=== PATIENT | female | born 1945 | race Caucasian/White ===

== ENCOUNTER → 2016-05-26 | Outpatient (CLI) | payer MEDICARE | LOC: OD 17:05 | PROVIDERS: ATTEND Internal Medicine | DX: R07.9 Chest pain, unspecified (principal) | CPT/HCPCS: 71020 ==

== ENCOUNTER → 2016-06-16 | Outpatient (CLI) | payer MEDICARE | LOC: RAD 12:41 | PROVIDERS: ATTEND Internal Medicine | DX: N23 Unspecified renal colic (principal) | CPT/HCPCS: 74176 ==

== ENCOUNTER 2017-06-29 01:40 | Inpatient (IN) | payer MEDICARE ==
[2017-06-29] MEDS ORDERED: NORMAL SALINE 1000 ML 1,000 ML IV ONE (01:52)
[2017-06-29] MEDS ORDERED: DILTIAZEM HCL INJ 25 MG/5 ML VIAL ONE (01:55)
--- NOTE | 2017-06-29 02:00 | ER Document Report ---
ED Cardiac - General Mode of Arrival: Ambulatory Information source: Patient TRAVEL OUTSIDE OF THE [place] IN LAST 30 DAYS: No <JUDY BARR - Last Filed: 06/29/17 06:15> <MARCEL BEAN - Last Filed: 06/29/17 06:21> - General Chief Complaint: Not feeling well, weak Stated Complaint: NOT FEELING WELL Time Seen by Provider: 06/29/17 01:52 Notes: Patient is a 71-year-old female that presents to the emergency department today with complaints of a heart racing sensation with associated chest pain that began prior to arrival. Patient states she has "just not felt well" for the last few days mentioning a cough. Patient has a history of GERD and she states she recently had her GERD medication adjusted. Patient denies any nausea, vomiting, fevers, or history of SVT. Patient states her hypertension medications have not been changed recently. (JUDY BARR) - Related Data Allergies/Adverse Reactions: Penicillins Allergy (Intermediate, Verified 11/30/13 13:53) alendronate sodium [From Fosamax] Allergy (Unknown, Verified 11/30/13 13:53) rosuvastatin calcium [From Crestor] Allergy (Unknown, Verified 11/30/13 13:53) Guacamole Allergy (Severe, Uncoded 11/30/13 13:53) Swelling of Throat Past Medical History - General Information source: Patient, [facility] Records - Social History Smoking Status: Never Smoker Cigarette use (# per day): No Frequency of alcohol use: None Drug Abuse: None Lives with: Family Family History: Reviewed & Not Pertinent - Past Medical History Cardiac Medical History: Reports: Hx Hypertension Psychiatric Medical History: Reports: Hx Anxiety Surgical Hx: Negative - Immunizations Hx Pneumococcal Vaccination: 05/08/10 <JUDY BARR - Last Filed: 06/29/17 06:15> Review of Systems - Review of Systems Constitutional: See HPI, Other - generally not feeling well. denies: Fever EENT: No symptoms reported Cardiovascular: See HPI, Chest pain, Heart racing Respiratory: See HPI, Cough Gastrointestinal: denies: Nausea, Vomiting Genitourinary: No symptoms reported Female Genitourinary: No symptoms reported Musculoskeletal: No symptoms reported Skin: No symptoms reported Hematologic/Lymphatic: No symptoms reported Neurological/Psychological: No symptoms reported -: Yes All other systems reviewed and negative <JUDY BARR - Last Filed: 06/29/17 06:15> Physical Exam - Vital signs Interpretation: Hypotensive, Tachycardic, Hypoxic <JUDY BARR - Last Filed: 06/29/17 06:15> <MARCEL BEAN - Last Filed: 06/29/17 06:21> - Vital signs Vitals: Temp 95 F L 06/29/17 01:43 - Notes Notes: Physical Exam: General: Severe distress, ill appearing. HEENT: Normocephalic. Atraumatic. PERRL. Extraocular movements intact. Oropharynx clear. Neck: Supple. Non-tender. Respiratory: Decreased breath sounds on the left. Cardiovascular: SVT Abdominal: Normal Inspection. Non-tender. No distension. Normal Bowel Sounds. Back: Non-tender. No deformity or step off. Extremities: Moves all four extremities. Upper extremities: Normal inspection. Normal ROM. Lower extremities: Normal inspection. No edema. Normal ROM. Neurological: Confused Psychological: Unable to assess Skin: Cool to the touch. Dry. Normal color. (JUDY BARR) Course - Laboratory Result Diagrams: 06/29/17 02:25 06/29/17 02:25 <JUDY BARR - Last Filed: 06/29/17 06:15> - Laboratory Result Diagrams: 06/29/17 02:25 06/29/17 02:25 - Diagnostic Test Radiology reviewed: Image reviewed, Reports reviewed - EKG Interpretation by Me Rate: Tachycardia <MARCEL BEAN - Last Filed: 06/29/17 06:21> - Re-evaluation Re-evalutation: 06/29/17 02:10 No response to adenosine 06/29/17 02:35 Heart rate and blood pressure responding to fluids 06/29/17 02:58 Patient improving (JUDY BARR) 06/29/17 06:11 Patient is a 8-year-old female who comes in with difficulty breathing, chest pain, hyperthermia, tachycardia, and hypotension. Patient was initially given adenosine with no response. Patient was given fluids for her tachycardia and started on Graham-Synephrine after it did not respond to 3 L of fluid. Patient has a very large infiltrate on the right with associated pleural effusion. Patient was placed on a point roberts hugger for hypo-thermia. Antibiotics were initiated. Cultures were sent. Patient was discussed with Dr. Duke who will admit the patient to the ICU. Patient has an elevated troponin likely from demand ischemia. Aspirin was ordered, but held for possible thoracocentesis later today. Have discussed with patient and family. Patient is appearing much better since initial presentation is no longer confused. Stable at time of admission. (MARCEL BEAN) - Vital Signs Vital signs: Temp Pulse Resp BP Pulse Ox 96.8 F L 18 131/95 H 82 L 06/29/17 04:52 06/29/17 04:52 06/29/17 04:52 06/29/17 03:45 - Laboratory Laboratory results interpreted by me: 06/29/17 06/29/17 06/29/17 02:20 02:25 02:25 MCV 101 H MCH 34.4 H VBG HCO3 Sodium 129.8 L Chloride 91 L Glucose 152 H Lactic Acid Magnesium AST 62 H Ammonia Total Protein 5.7 L Albumin 3.3 L TSH Free T4 Urine Ketones TRACE H Urine Urobilinogen 4.0 H Ur Leukocyte Esterase TRACE H 06/29/17 06/29/17 06/29/17 02:25 02:25 02:25 MCV MCH VBG HCO3 33.1 H Sodium Chloride Glucose Lactic Acid 2.6 H Magnesium AST Ammonia Total Protein Albumin TSH 6.97 H Free T4 3.05 H Urine Ketones Urine Urobilinogen Ur Leukocyte Esterase 06/29/17 06/29/17 04:20 04:20 MCV MCH VBG HCO3 Sodium Chloride Glucose Lactic Acid Magnesium 1.5 L AST Ammonia < 8.7 L Total Protein 4.9 L Albumin TSH Free T4 Urine Ketones Urine Urobilinogen Ur Leukocyte Esterase Critical Care Note - Critical Care Note Total time excluding time spent on procedures (mins): 120 - Evaluation and management of respiratory distress, hypothermia, tachycardia, hypotension, probable pneumonia, evaluation and coordination of admission, counseling of patient and family, multiple re-evaluations <MARCEL BEAN - Last Filed: 06/29/17 06:21> Discharge <JUDY BARR - Last Filed: 06/29/17 06:15> - Discharge Admitting Provider: Srikanth Unit Admitted: ICU <MARCEL BEAN - Last Filed: 06/29/17 06:21> - Discharge Clinical Impression: Pneumonia Qualifiers: Pneumonia type: due to unspecified organism Laterality: right Lung location: lower lobe of lung Qualified Code(s): J18.1 - Lobar pneumonia, unspecified organism Sepsis Qualifiers: Sepsis type: sepsis due to unspecified organism Qualified Code(s): A41.9 - Sepsis, unspecified organism Condition: Stable Disposition: ADMITTED INPATIENT Scribe Attestation: 06/29/17 06:21 I personally performed the services described in the documentation, reviewed and edited the documentation which was dictated to the scribe in my presence, and it accurately records my words and actions. (MARCEL BEAN) Scribe Documentation - Scribe Written by Scribe:: Delmar Green, 06/29/2017 [id number] acting as scribe for :: Freya <JUDY BARR - Last Filed: 06/29/17 06:15>
[2017-06-29] MEDS ORDERED: ADENOSINE INJ/PF 6 MG/2 ML SDV IV ONE ×2 (02:01→02:02)
--- NOTE | 2017-06-29 02:27 | RADIOLOGY REPORT (SQ) ---
EXAM DESCRIPTION: CHEST SINGLE VIEW CLINICAL HISTORY: [facility] COMPARISON: 05/26/2016 FINDINGS: Single frontal view of the chest. Atherosclerotic calcification aortic arch. Cardiomegaly. Right basilar consolidation and right pleural effusion. Left lung is clear. No pneumothorax. No displaced rib fractures. Upper abdominal soft tissues are unremarkable. IMPRESSION: 1. Left basilar consolidation and moderate left pleural effusion
[2017-06-29 02:37] LABS: VENOUS BLOOD BASE EXCESS 6.9 mmol/L; VENOUS BLOOD HCO3 33.1 mmol/L (20-32); VENOUS BLOOD PCO2 53.2 mmHg (35-63); VENOUS BLOOD PH 7.41 (7.30-7.42)
[2017-06-29] MEDS ORDERED: CEFEPIME 1 GM/D5W RTU 1 GM/50 ML RTUPB IV ONE (02:43)
[2017-06-29] MEDS ORDERED: VANCOMYCIN HCL INJ 1000 MG VIAL IV ONE (02:44)
[2017-06-29 02:48] LABS: ABSOLUTE BASOPHILS # (AUTO) 0.1 10^3/uL (0.0-0.2); ABSOLUTE EOSINOPHILS # (AUTO) 0.1 10^3/uL (0.0-0.6); ABSOLUTE LYMPHOCYTES (AUTO) 2.2 10^3/uL (0.5-4.7); ABSOLUTE MONOCYTES (AUTO) 0.6 10^3/uL (0.1-1.4); ABSOLUTE NEUT (AUTO) 6.7 10^3/uL (1.7-8.2); EOSINOPHILS % (AUTO) 1.5 % (0-6); HEMATOCRIT 43.4 % (36.0-47.0); HEMOGLOBIN 14.8 g/dL (12.0-15.5); LYMPHOCYTES % (AUTO) 22.7 % (13-45); MEAN CORPUSCULAR HEMOGLOBIN 34.4 pg (27.0-33.4); MEAN CORPUSCULAR HGB CONC 34.1 g/dL (32.0-36.0); MEAN CORPUSCULAR VOLUME 101 fl (80-97); MONOCYTES % (AUTO) 6.6 % (3-13); PLATELET COUNT 346 10^3/uL (150-450); RED CELL DISTRIBUTION WIDTH 12.8 % (11.5-14.0); SEGMENTED NEUTROPHILS % (AUTO) 68.2 % (42-78); TOTAL CELLS COUNTED % (AUTO) 100 %; WHITE BLOOD COUNT 9.8 10^3/uL (4.0-10.5)
[2017-06-29 02:55] LABS: INTERNATIONAL RATION (INR) 1.01
[2017-06-29 02:58] LABS: ALANINE AMINOTRANSFERASE 38 U/L (9-52); ALBUMIN 3.3 g/dL (3.5-5.0); ALKALINE PHOSPHATASE 67 U/L (38-126); ANION GAP 12 (5-19); ASPARTATE AMINO TRANSFERASE 62 U/L (14-36); BILIRUBIN,DIRECT 0.4 mg/dL (0.0-0.4); BILIRUBIN,TOTAL 0.7 mg/dL (0.2-1.3); BLOOD UREA NITROGEN 13 mg/dL (7-20); CALCIUM 8.9 mg/dL (8.4-10.2); CARBON DIOXIDE 27 mmol/L (22-30); CHLORIDE 91 mmol/L (98-107); GLUCOSE 152 mg/dL (75-110); POTASSIUM 4.1 mmol/L (3.6-5.0); SODIUM 129.8 mmol/L (137-145); TOTAL PROTEIN 5.7 g/dL (6.3-8.2)
[2017-06-29] MEDS ORDERED: FENTANYL CITRATE INJ/PF 100 MCG/2 ML AMPUL IV ONE (03:08)
[2017-06-29 03:15] LABS: APPEARANCE,URINE SLIGHTLY-CLOUDY; BILIRUBIN,URINE NEGATIVE (NEGATIVE); COLOR,URINE YELLOW; GLUCOSE, URINE NEGATIVE (NEGATIVE); KETONES,URINE TRACE mg/dL (NEGATIVE); LEUKOCYTE ESTERASE,URINE TRACE (NEGATIVE); NITRITE,URINE NEGATIVE (NEGATIVE); PROTEIN,URINE NEGATIVE (NEGATIVE); URINE SPECIFIC GRAVITY 1.014
[2017-06-29] MEDS ORDERED: LEVOFLOXACIN 750 MG/D5W RTU 750 MG/150 ML RTUPB IV ONE ×2 (03:15→06:00)
[2017-06-29] MEDS: NORMAL SALINE 1000 ML 1,000 ML IV PRN ×3 (03:38→22:32)
[2017-06-29] MEDS ORDERED: NORMAL SALINE 1000 ML 1,000 ML IV PRN (04:04)
[2017-06-29] MEDS ORDERED: VANCOMYCIN HCL 0 MG in DEXTROSE 5%-WATER 250 ML IV NR (04:15)
[2017-06-29] MEDS ORDERED: DEXTROSE 5%-WATER 250 ML with PHENYLEPHRINE HCL 40 MG IV PRN ×2 (04:16)
[2017-06-29] MEDS ORDERED: PHENYLEPHRINE HCL INJ/PF 10 MG/1 ML SDV ONE (04:22)
[2017-06-29 04:39] LABS: THYROID STIMULATING HORMONE 6.97 uIU/mL (0.47-4.68)
[2017-06-29 04:42] LABS: FREE T4 (FREE THYROXINE) 3.05 ng/dL (0.78-2.19)
[2017-06-29 04:43] LABS: INTERNATIONAL RATION (INR) 1.08; PROTHROMBIN TIME 14.7 SEC (11.4-15.4)
[2017-06-29 04:50] LABS: LIPASE 101.2 U/L (23-300); PHOSPHORUS 3.9 mg/dL (2.5-4.5); TOTAL PROTEIN 4.9 g/dL (6.3-8.2)
[2017-06-29 05:01] LABS: PARTIAL THROMBOPLASTIN TIME 28.1 SEC (23.5-35.8)
[2017-06-29 05:03] LABS: CREATINE KINASE MB 4.46 ng/mL (<4.55)
[2017-06-29 05:07] LABS: TROPONIN I 0.574 ng/mL
[2017-06-29] MEDS ORDERED: ASPIRIN 81 MG TABLET, CHEWABLE PO ONE (05:52)
[2017-06-29] MEDS: ENOXAPARIN SODIUM INJ 40 MG/0.4 ML DISP.SYRIN SUBCUT SCH (06:25)
[2017-06-29] MEDS ORDERED: VALSARTAN PO SCH (08:00)
[2017-06-29] MEDS ORDERED: HYDROCHLOROTHIAZIDE PO SCH (08:00)
[2017-06-29] MEDS ORDERED: PROPRANOLOL HCL 160 MG PO SCH (08:00)
[2017-06-29] MEDS ORDERED: [UNRECOGNIZED DRUG - OTHER] PO SCH (08:00)
--- NOTE | 2017-06-29 08:06 | EKG REPORT ---
SEVERITY:- ABNORMAL ECG - ATRIAL FIBRILLATION, V-RATE 104-161 LOW VOLTAGE IN FRONTAL LEADS PROBABLE LEFT VENTRICULAR HYPERTROPHY ST DEPRESSION, PROBABLY RATE RELATED PROLONGED QT INTERVAL : Confirmed by: Devonte Hargrove MD 29-Jun-2017 08:05:47
--- NOTE | 2017-06-29 08:06 | EKG REPORT ---
SEVERITY:- ABNORMAL ECG - SINUS RHYTHM NONSPECIFIC INTRAVENTRICULAR CONDUCTION DELAY LOW VOLTAGE IN FRONTAL LEADS BORDERLINE ST DEPRESSION,AKILA LATERAL LEADS : Confirmed by: Devonte Hargrove MD 29-Jun-2017 08:05:26
--- NOTE | 2017-06-29 08:07 | EKG REPORT ---
SEVERITY:- ABNORMAL ECG - SUPRAVENTRICULAR TACHYCARDIA LOW VOLTAGE IN FRONTAL LEADS PROBABLE LEFT VENTRICULAR HYPERTROPHY ST DEPRESSION, PROBABLY RATE RELATED : Confirmed by: Devonte Hargrove MD 29-Jun-2017 08:07:14
[2017-06-29 09:01] LABS: URINE AMPHETAMINES SCREEN NEGATIVE; URINE BARBITURATES SCREEN NEGATIVE; URINE BENZODIAZEPINES SCREEN NEGATIVE; URINE COCAINE SCREEN NEGATIVE; URINE MARIJUANA (THC) SCREEN NEGATIVE; URINE METHADONE SCREEN NEGATIVE; URINE PHENCYCLIDINE SCREEN NEGATIVE
[2017-06-29] MEDS ORDERED: ALPRAZOLAM 0.5 MG TABLET PO ONE (09:30)
[2017-06-29] MEDS ORDERED: LIDOCAINE 1% INJ-PF (10 MG/ML) 30 ML SDV ONE (09:35)
[2017-06-29] MEDS: AZTREONAM 1.5 GM in DEXTROSE 5%-WATER 100 ML IV SCH ×2 (11:07→18:36)
[2017-06-29] MEDS: HYDROCHLOROTHIAZIDE 12.5 MG CAPSULE PO SCH (11:13)
[2017-06-29] MEDS: VALSARTAN 160 MG TABLET PO SCH (11:13)
[2017-06-29] MEDS: PROPRANOLOL HCL 40 MG TABLET PO SCH ×2 (11:13→21:57)
--- NOTE | 2017-06-29 11:51 | RADIOLOGY REPORT (SQ) ---
EXAM DESCRIPTION: U/S THORACENTESIS WITH IMAGING COMPLETED DATE/TIME: 06/29/2017 11:14 am REASON FOR STUDY: rt pleural effusion COMPARISON: AP chest 06/29/2017, 05/26/2016 Right rib detail films 05/26/2016 LIMITATIONS: None. PROCEDURE: Procedure, risks, benefit, and alternative explained to patient who then gave written con sent. The posterior right chest wall was marked using ultrasound guidance. A time-out was called fo r correct marking verification. Chest prepped and draped using sterile technique. Local anesthesia a chieved using 3.5 ml of 1% lidocaine injection. A 6fr Safe-T- Centesis set was introduced into the r ight pleural space. Fluid was aspirated. The catheter was removed and the entry site was covered wi th sterile bandage. No immediate complications noted. Fluid was sent for testing including cytology. Images acquired during the procedure were stored on PACS. FINDINGS: ENTRY SITE: Posterior right chest FLUID VOLUME: 1600 mL FLUID ANALYSIS: Sent for testing as per ordering physician OTHER: Fluid was opaque milky colored IMPRESSION: SUCCESSFUL DIAGNOSTIC AND THERAPEUTIC THORACENTESIS USING ULTRASOUND GUIDANCE. COMMENT: Patient medication list reviewed: Yes- Quality ID# [id number]:Eligible professional attests to doc umenting in the medical record they obtained, updated, or reviewed the patient's current medications. Quality ID #[id number]: Final reports for procedures using fluoroscopy that document radiation exposure josie jose luis, or exposure time and number of fluorographic images (if radiation exposure indices are not avail able) TECHNICAL DOCUMENTATION: JOB ID: [id number] [employer]- All Rights Reserved
[2017-06-29 11:59] LABS: FLUID APPEARANCE TURBID; FLUID COLOR STRAW; FLUID SOURCE LUNG; FLUID TYPE PLEURAL; FLUID VISCOSITY LIQUID
--- NOTE | 2017-06-29 12:15 | RADIOLOGY REPORT (SQ) ---
EXAM DESCRIPTION: CHEST SINGLE VIEW COMPLETED DATE/TIME: 06/29/2017 11:58 am REASON FOR STUDY: Post Rigth Thoracentesis (repeat in 2 HRs) COMPARISON: 06/29/2017 EXAM PARAMETERS: NUMBER OF VIEWS: One view. TECHNIQUE: Single frontal radiographic view of the chest acquired. RADIATION DOSE: NA LIMITATIONS: None. FINDINGS: LUNGS AND PLEURA: Post thoracentesis, no pneumothorax. . . Possible developing minimal atelectasis or infiltrate the left base adjacent to the hemidiaphragm. MEDIASTINUM AND HILAR STRUCTURES: No masses. Contour normal. HEART AND VASCULAR STRUCTURES: Heart normal in size. Normal vasculature. BONES: No acute findings. HARDWARE: None in the chest. OTHER: No other significant finding. IMPRESSION: No pneumothorax post thoracentesis. Possible developing minimal atelectasis or infiltra te left base. TECHNICAL DOCUMENTATION: JOB ID: [id number] [employer]- All Rights Reserved
--- NOTE | 2017-06-29 13:52 | RADIOLOGY REPORT (SQ) ---
EXAM DESCRIPTION: CHEST SINGLE VIEW COMPLETED DATE/TIME: 06/29/2017 1:38 pm REASON FOR STUDY: 2 HR POST THORACENTESIS COMPARISON: 06/29/2017 chest films 0150 hours and 1145 hours EXAM PARAMETERS: NUMBER OF VIEWS: One view. TECHNIQUE: Single frontal radiographic view of the chest acquired. RADIATION DOSE: NA LIMITATIONS: None. FINDINGS: LUNGS AND PLEURA: 2 hours post right-sided thoracentesis. No pneumothorax. The there is still a moderate to large residual right pleural effusion, thoracentesis earlier today r emoved 1600 mL of cloudy white fluid from the right hemithorax. Persistent airspace disease in the right middle and lower lobe likely atelectasis. Minimal left basilar atelectasis in the lateral costophrenic sulcus. No gross left pleural effusion or pneumothorax. MEDIASTINUM AND HILAR STRUCTURES: No masses. Contour normal. HEART AND VASCULAR STRUCTURES: Heart normal in size. Normal vasculature. BONES: No acute findings. HARDWARE: Defibrillator pads over the chest OTHER: No other significant finding. IMPRESSION: No pneumothorax 2 hours post right-sided thoracentesis. TECHNICAL DOCUMENTATION: JOB ID: [id number] [employer]- All Rights Reserved
[2017-06-29 15:42] LABS: CREATINE KINASE MB 11.8 ng/mL (<4.55)
[2017-06-29 15:45] LABS: TROPONIN I 3.06 ng/mL
[2017-06-29] MEDS ORDERED: VANCOMYCIN HCL 500 MG in DEXTROSE 5%-WATER 100 ML IV SCH (16:00)
[2017-06-29] MEDS: VANCOMYCIN HCL 500 MG in NORMAL SALINE 100 ML IV SCH (17:06)
[2017-06-29] MEDS ORDERED: ACETAMINOPHEN 325 MG TABLET ONE (19:31)
--- NOTE | 2017-06-29 19:54 | EKG REPORT ---
SEVERITY:- ABNORMAL ECG - SINUS RHYTHM REPOL ABNRM SUGGESTS ISCHEMIA, LATERAL LEADS : Confirmed by: Devonte Hargrove MD 29-Jun-2017 19:52:58
[2017-06-29] MEDS ORDERED: ACETAMINOPHEN 325 MG TABLET PO PRN (20:10)
--- NOTE | 2017-06-29 20:33 | PDOC H&P ---
History of Present Illness Admission Date/PCP: 06/29/17 04:26 NOLAN KIRKPATRICK MD History of Present Illness: MARSHA DUMAS is a 71 year old female, She came to the emergency room this morning for evaluation of malaise, palpitation, cough. In the emergency room she was evaluated she was found to have hypothermia with a core temperature of 95, low blood pressure, no complex tachycardia, she was treated with adenosine she also was treated with Graham-Synephrine after she was given fluid challenge with normal saline. Her chest x-ray showed a large right pleural effusion associated with infiltrates. She also had elevated lactic acid level hyponatremia. This morning she had thoracentesis over 1600 cc of pleural fluid was collected, analysis is pending, the LDH and total protein level is pending to determine if this is exudative versus transudative but based on the appearance of the pleural fluid is very suspicious for exudative pleural effusion. She also have elevated serum troponin most likely due to demand ischemia secondary to tachycardia and sepsis. Patient admits criteria for sepsis due to severe pneumonia.I spoke to patient about the duration of her sickness, she told me that she has been feeling unwell for the last couple of days, she has a scheduled appointment on Monday with us in the office but she could not wait for the appointment because she felt very well earlier this morning and she came to the emergency room for evaluation. Past Medical History Cardiac Medical History: Reports: Hypertension GI Medical History: Reports: Gastroesophageal Reflux Disease Psychiatric Medical History: Reports: Depression Social History Lives with: Family Smoking Status: Never Smoker Frequency of Alcohol Use: None Hx Recreational Drug Use: No Drugs: None Hx Prescription Drug Abuse: No - Advance Directive Resuscitation Status: Full Code Family History Family History: Reviewed & Not Pertinent Parental Family History Reviewed: Yes Children Family History Reviewed: Yes Sibling(s) Family History Reviewed.: Yes Medication/Allergy Home Medications: Bupropion HCl [Wellbutrin Xl 300mg 24hr Tablet] 1 tab PO DAILY 06/29/17 Propranolol HCl [Inderal La] 160 mg PO DAILY 06/29/17 Valsartan/Hydrochlorothiazide [Valsartan-Hctz 320-25 mg Tab] 0.5 each PO DAILY 06/29/17 Allergies/Adverse Reactions: Penicillins Allergy (Intermediate, Verified 11/30/13 13:53) alendronate sodium [From Fosamax] Allergy (Unknown, Verified 11/30/13 13:53) rosuvastatin calcium [From Crestor] Allergy (Unknown, Verified 11/30/13 13:53) Guacamole Allergy (Severe, Uncoded 11/30/13 13:53) Swelling of Throat Review of Systems Constitutional: PRESENT: chills, fatigue, headache(s) Eyes: ABSENT: visual disturbances Ears: ABSENT: hearing changes Cardiovascular: PRESENT: palpitations Respiratory: PRESENT: cough Gastrointestinal: ABSENT: abdominal pain, constipation, diarrhea, hematemesis, hematochezia, nausea, vomiting Genitourinary: ABSENT: dysuria, hematuria Musculoskeletal: ABSENT: joint swelling Integumentary: ABSENT: rash, wounds Neurological: ABSENT: abnormal gait, abnormal speech, confusion, dizziness, focal weakness, syncope Psychiatric: ABSENT: anxiety, depression, homidical ideation, suicidal ideation Endocrine: PRESENT: cold intolerance Hematologic/Lymphatic: ABSENT: easy bleeding, easy bruising, lymphadenopathy Physical Exam Vital Signs: Temp Pulse Resp BP Pulse Ox 97.4 F 78 18 154/95 H 98 06/29/17 16:07 06/29/17 20:01 06/29/17 16:07 06/29/17 16:07 06/29/17 16:07 Intake & Output 06/28/17 06/29/17 06/30/17 06:59 06:59 06:59 Intake Total 576 Output Total 1000 Balance -424 Weight 56.699 kg 62.5 kg General appearance: PRESENT: mild distress Head exam: PRESENT: atraumatic, normocephalic Eye exam: PRESENT: conjunctiva pink, EOMI, PERRLA Ear exam: PRESENT: normal external ear exam Mouth exam: PRESENT: moist, tongue midline Neck exam: PRESENT: full ROM Respiratory exam: PRESENT: decreased breath sounds - On auscultation of the chest, there is decreased breath sounds on the right lung earl Cardiovascular exam: PRESENT: RRR, +S1, +S2 Vascular exam: PRESENT: normal capillary refill GI/Abdominal exam: PRESENT: normal bowel sounds, soft Rectal exam: PRESENT: deferred Neurological exam: PRESENT: alert, awake, oriented to person, oriented to place , oriented to time, oriented to situation, CN II-XII grossly intact Psychiatric exam: PRESENT: appropriate affect, normal mood Skin exam: PRESENT: dry, intact, warm Results Laboratory Results: 06/29/17 06/29/17 06:35 10:35 Lactic Acid 1.6 Fluid Type PLEURAL Fluid Source LUNG Fluid Color STRAW Fluid Appearance TURBID Fluid Viscosity LIQUID Fluid WBC 5125 Fluid RBC 611 06/29/17 06/29/17 06/29/17 13:36 13:36 15:00 Creatine Kinase 154 H 127 CK-MB (CK-2) Cancelled Troponin I Cancelled 06/29/17 15:00 Creatine Kinase CK-MB (CK-2) 11.80 H Troponin I 3.060 Impressions: Thoracentesis Ultrasound 06/29/17 04:03 IMPRESSION: SUCCESSFUL DIAGNOSTIC AND THERAPEUTIC THORACENTESIS USING ULTRASOUND GUIDANCE. Chest X-Ray 06/29/17 14:00 IMPRESSION: No pneumothorax 2 hours post right-sided thoracentesis. Assessment & Plan - Diagnosis (1) Sepsis Qualifiers: Sepsis type: sepsis due to unspecified organism Qualified Code(s): A41.9 - Sepsis, unspecified organism Is this a current diagnosis for this admission?: Yes Plan: She has sepsis syndrome, due to right lower lobe pneumonia, the pleural effusion is most likely parapneumonic effusion (2) Pneumonia Qualifiers: Pneumonia type: due to unspecified organism Laterality: right Lung location: unspecified part of lung Qualified Code(s): J18.9 - Pneumonia, unspecified organism Is this a current diagnosis for this admission?: Yes Plan: She has right lower lobe pneumonia, She will empirically be treated with antibiotic to cover MRSA, community-acquired pathogens (3) Pleural effusion on right Is this a current diagnosis for this admission?: Yes (4) Elevated troponin Is this a current diagnosis for this admission?: Yes Plan: This is probably related to the sepsis, demand ischemia (5) Paroxysmal A-fib Is this a current diagnosis for this admission?: Yes (6) Hyponatremia Is this a current diagnosis for this admission?: Yes (7) Hypomagnesemia Is this a current diagnosis for this admission?: Yes (8) Hypotension Qualifiers: Hypotension type: unspecified hypotension type Qualified Code(s): I95.9 - Hypotension, unspecified Is this a current diagnosis for this admission?: Yes
[2017-06-29] MEDS: BUPROPION HCL 100 MG TABLET PO SCH (21:59)
[2017-06-29] MEDS ORDERED: BUPROPION HCL 100 MG TABLET PO SCH (22:00)
[2017-06-29] MEDS: LEVOFLOXACIN 750 MG/D5W RTU 750 MG/150 ML RTUPB IV SCH (22:03)
[2017-06-29] MEDS: MAGNESIUM SULFATE/D5W 1 GM/100 ML RTUPB IV SCH ×2 (22:03→22:05)
[2017-06-30] MEDS: AZTREONAM 1.5 GM in DEXTROSE 5%-WATER 100 ML IV SCH ×3 (01:14→17:16)
[2017-06-30] MEDS: VANCOMYCIN HCL 500 MG in NORMAL SALINE 100 ML IV SCH ×2 (03:08→15:33)
[2017-06-30 04:33] LABS: ABSOLUTE LYMPHOCYTES (AUTO) 1.6 10^3/uL (0.5-4.7); ABSOLUTE MONOCYTES (AUTO) 0.8 10^3/uL (0.1-1.4); ABSOLUTE NEUT (AUTO) 5.7 10^3/uL (1.7-8.2); BASOPHILS % (AUTO) 0.2 % (0-2); EOSINOPHILS % (AUTO) 0.5 % (0-6); HEMATOCRIT 43.7 % (36.0-47.0); HEMOGLOBIN 14.9 g/dL (12.0-15.5); LYMPHOCYTES % (AUTO) 19.5 % (13-45); MEAN CORPUSCULAR HEMOGLOBIN 34.2 pg (27.0-33.4); MEAN CORPUSCULAR HGB CONC 34.2 g/dL (32.0-36.0); MEAN CORPUSCULAR VOLUME 100 fl (80-97); MONOCYTES % (AUTO) 9.3 % (3-13); PLATELET COUNT 277 10^3/uL (150-450); RED BLOOD COUNT 4.37 10^6/uL (3.72-5.28); RED CELL DISTRIBUTION WIDTH 12.4 % (11.5-14.0); SEGMENTED NEUTROPHILS % (AUTO) 70.5 % (42-78); TOTAL CELLS COUNTED % (AUTO) 100 %; WHITE BLOOD COUNT 8.1 10^3/uL (4.0-10.5)
[2017-06-30 04:53] LABS: ALANINE AMINOTRANSFERASE 58 U/L (9-52); ALBUMIN 3.2 g/dL (3.5-5.0); ALKALINE PHOSPHATASE 103 U/L (38-126); ANION GAP 8 (5-19); ASPARTATE AMINO TRANSFERASE 115 U/L (14-36); BILIRUBIN,DIRECT 0.4 mg/dL (0.0-0.4); BILIRUBIN,TOTAL 0.5 mg/dL (0.2-1.3); BLOOD UREA NITROGEN 9 mg/dL (7-20); CARBON DIOXIDE 25 mmol/L (22-30); CHLORIDE 97 mmol/L (98-107); CHOLESTEROL 140.42 mg/dL (0-200); GLUCOSE 118 mg/dL (75-110); POTASSIUM 3.5 mmol/L (3.6-5.0); SODIUM 129.5 mmol/L (137-145); TOTAL PROTEIN 5.9 g/dL (6.3-8.2); TRIGLYCERIDES 84 mg/dL (<150)
[2017-06-30 05:04] LABS: DIRECT LDL 73 mg/dL (<100)
[2017-06-30] MEDS: PROPRANOLOL HCL 40 MG TABLET PO SCH ×2 (09:25→21:24)
[2017-06-30] MEDS: BUPROPION HCL 100 MG TABLET PO SCH ×2 (09:26→21:25)
[2017-06-30] MEDS: VALSARTAN 160 MG TABLET PO SCH (09:26)
[2017-06-30] MEDS: HYDROCHLOROTHIAZIDE 12.5 MG CAPSULE PO SCH (09:26)
[2017-06-30] MEDS: ENOXAPARIN SODIUM INJ 40 MG/0.4 ML DISP.SYRIN SUBCUT SCH (11:24)
--- NOTE | 2017-06-30 18:22 | XCELERA REPORT ---
[address] [address] Transthoracic Echocardiogram Report Name: MARSHA DUMAS Age: 71 yrs Gender: Female : 1945 Patient Status: Inpatient Patient Location: [address] [place] [address] Study Date: 06/30/2017 11:25 AM Height: 68 in Weight: 137 lb BSA: 1.7 m2 Procedure: A complete two-dimensional transthoracic echocardiogram was performed (2D, M-mode, spectral and color flow Doppler). The study was technically difficult with many images being suboptimal in quality. Reason For Study: elevated troponin Ordering Physician: NOLAN KIRKPATRICK Performed By: Juliana Jaime Interpretation Summary The left ventricular ejection fraction is normal. There is mild concentric left ventricular hypertrophy. The left ventricle is grossly normal size. Doppler measurements suggest pseudonormalized left ventricular relaxation, which is associated with grade II/IV or mild to moderate diastolic dysfunction Wall motion cannot be accurately commented on, but no definite regional wall motion abnormalities noted. The right ventricular systolic function is normal. The right atrium is normal in size The left atrium is mildly dilated. There is a moderate amount of mitral regurgitation There is no mitral valve stenosis. No aortic regurgitation is present. There is no aortic valve stenosis There is a trace to mild amount of tricuspid regurgitation There is mild pulmonary hypertension by echo Right ventricular systolic pressure is estimated to be elevated at 30- 40mmHg. The aortic root is not well visualized but is probably normal size. The inferior vena cava appeared normal and decreased < 50% with respiration (RAP 10-15 mmHg) Minimal pericardial effusion. Small right pleural effusion. MMode/2D Measurements & Calculations RVDd: 2.5 cm LVIDd: 4.7 cm FS: 38.8 % Ao root diam: 3.2 cm IVSd: 0.80 cm LVIDs: 2.9 cm EDV(Teich): LVPWd: 0.80 cm 104.6 ml Ao root area: 8.0 cm2 ESV(Teich): LA dimension: 3.7 cm 32.3 ml EF(Teich): 69.2 % LA A2Cs: LA A4Cs: LA length: 4.0 cmLA Vol Index (BP): 20.3 cm2 17.2 cm2 42.5 ml/m2 LA Volume: 74.0 ml Doppler Measurements & Calculations MV E max temo: MV P1/2t max temo: Ao V2 max: LV V1 max P.8 cm/sec 38.3 cm/sec 74.8 cm/sec 0.81 mmHg MV A max temo: MV P1/2t: 95.5 msec Ao max PG: LV V1 max: 43.2 cm/sec 2.2 mmHg 45.0 cm/sec MV E/A: 0.85 MVA(P1/2t): 2.3 cm2 MV dec slope: 117.3 cm/sec2 MV dec time: 0.32 sec TV V2 max: PA V2 max: TR max temo: 298.4 cm/sec 55.9 cm/sec 270.1 cm/sec TV max PG: PA max P.2 mmHg TR max P.8 mmHg 29.2 mmHg Left Ventricle The left ventricle is grossly normal size. There is mild concentric left ventricular hypertrophy. The left ventricular ejection fraction is normal. Doppler measurements suggest pseudonormalized left ventricular relaxation, which is associated with grade II/IV or mild to moderate diastolic dysfunction. Wall motion cannot be accurately commented on, but no definite regional wall motion abnormalities noted. Right Ventricle The right ventricle is grossly normal size. There is normal right ventricular wall thickness. The right ventricular systolic function is normal. Atria The right atrium is normal in size. The left atrium is mildly dilated. Interarterial septum not well visualized and not well dopplered. Cannot comment on ASD/PFO presence. Mitral Valve There is mild to moderate mitral leaflet calcification. There is no mitral valve stenosis. There is a moderate amount of mitral regurgitation. Aortic Valve The aortic valve is grossly normal. There is no aortic valve stenosis. No aortic regurgitation is present. Tricuspid Valve The tricuspid valve is not well visualized, but is grossly normal. There is no tricuspid stenosis. There is a trace to mild amount of tricuspid regurgitation. There is mild pulmonary hypertension by echo. Right ventricular systolic pressure is estimated to be elevated at 30-40mmHg. Pulmonic Valve The pulmonic valve is not well visualized. Great Vessels The aortic root is not well visualized but is probably normal size. The inferior vena cava appeared normal and decreased < 50% with respiration (RAP 10-15 mmHg). Effusions Minimal pericardial effusion. Small right pleural effusion. : NOLAN KIRKPATRICK > Geraldine King
[2017-06-30] MEDS: HYDRALAZINE HCL INJ/PF 20 MG/1 ML SDV IV PRN (20:38)
[2017-06-30] MEDS: ZOLPIDEM TARTRATE 5 MG TABLET PO SCH (21:24)
[2017-06-30] MEDS: LEVOFLOXACIN 750 MG/D5W RTU 750 MG/150 ML RTUPB IV SCH (21:25)
--- NOTE | 2017-06-30 22:14 | PDOC PROGRESS REPORT ---
Subjective Progress Note for:: 06/30/17 Subjective:: Patient is seen by the bedside the pleural fluid analysis is consistent with exudative pleural effusion suggesting infection or malignancy. She is confused, blood pressure is elevated, she normally uses alprazolam, she is probably withdrawing from benzodiazepine, she be started on alprazolam on a scheduled Reason For Visit: PNEUMONIA,SEPSIS Physical Exam Vital Signs: Temp Pulse Resp BP Pulse Ox 97.5 F 72 17 195/112 H 93 06/30/17 19:36 06/30/17 19:36 06/30/17 19:36 06/30/17 19:36 06/30/17 19:36 Intake & Output 06/29/17 06/30/17 07/01/17 06:59 06:59 06:59 Intake Total 1864 1508 Output Total 2700 3200 Balance -836 -1692 Weight 56.699 kg 62.5 kg General appearance: PRESENT: no acute distress Eye exam: PRESENT: PERRLA Respiratory exam: PRESENT: clear to auscultation carlos Cardiovascular exam: PRESENT: +S1, +S2 GI/Abdominal exam: PRESENT: soft Neurological exam: PRESENT: alert Results Laboratory Results: 06/30/17 04:08 06/30/17 04:08 06/29/17 06/29/17 06/29/17 10:35 10:35 10:35 WBC RBC Hgb Hct MCV MCH MCHC RDW Plt Count Seg Neutrophils % Lymphocytes % Monocytes % Eosinophils % Basophils % Absolute Neutrophils Absolute Lymphocytes Absolute Monocytes Absolute Eosinophils Absolute Basophils Sodium Potassium Chloride Carbon Dioxide Anion Gap BUN Creatinine Est GFR ( Amer) Est GFR (Non-Af Amer) Glucose Calcium Total Bilirubin AST ALT Alkaline Phosphatase Total Protein Albumin Triglycerides Cholesterol LDL Cholesterol Direct VLDL Cholesterol HDL Cholesterol Fluid Glucose 119 Fluid Total Protein Fluid LDH 99 Fluid Amylase 63 06/29/17 06/30/17 06/30/17 10:35 04:08 04:08 WBC 8.1 RBC 4.37 Hgb 14.9 Hct 43.7 MCV 100 H MCH 34.2 H MCHC 34.2 RDW 12.4 Plt Count 277 Seg Neutrophils % 70.5 Lymphocytes % 19.5 Monocytes % 9.3 Eosinophils % 0.5 Basophils % 0.2 Absolute Neutrophils 5.7 Absolute Lymphocytes 1.6 Absolute Monocytes 0.8 Absolute Eosinophils 0.0 Absolute Basophils 0.0 Sodium 129.5 L Potassium 3.5 L Chloride 97 L Carbon Dioxide 25 Anion Gap 8 BUN 9 Creatinine 0.54 Est GFR ( Amer) > 60 Est GFR (Non-Af Amer) > 60 Glucose 118 H Calcium 8.0 L Total Bilirubin 0.5 AST 115 H ALT 58 H Alkaline Phosphatase 103 Total Protein 5.9 L Albumin 3.2 L Triglycerides 84 Cholesterol 140.42 LDL Cholesterol Direct 73 VLDL Cholesterol 17.0 HDL Cholesterol 42 Fluid Glucose Fluid Total Protein 3.6 Fluid LDH Fluid Amylase 06/29/17 10:35 Pleural Fluid - Right Pleural Effusion AFB Smear Concentration - Final 06/29/17 10:35 Pleural Fluid - Right Pleural Effusion Acid Fast Bacilli Smear - Final 06/29/17 06/29/17 06/29/17 13:36 13:36 15:00 Creatine Kinase 154 H 127 CK-MB (CK-2) Cancelled Troponin I Cancelled 06/29/17 15:00 Creatine Kinase CK-MB (CK-2) 11.80 H Troponin I 3.060 Impressions: Thoracentesis Ultrasound 06/29/17 04:03 IMPRESSION: SUCCESSFUL DIAGNOSTIC AND THERAPEUTIC THORACENTESIS USING ULTRASOUND GUIDANCE. Chest X-Ray 06/29/17 14:00 IMPRESSION: No pneumothorax 2 hours post right-sided thoracentesis. Assessment & Plan - Diagnosis (1) Sepsis Qualifiers: Sepsis type: sepsis due to unspecified organism Qualified Code(s): A41.9 - Sepsis, unspecified organism Is this a current diagnosis for this admission?: Yes (2) Pneumonia Qualifiers: Pneumonia type: due to unspecified organism Laterality: right Lung location: unspecified part of lung Qualified Code(s): J18.9 - Pneumonia, unspecified organism Is this a current diagnosis for this admission?: Yes (3) Pleural effusion on right Is this a current diagnosis for this admission?: Yes (4) Elevated troponin Is this a current diagnosis for this admission?: Yes Plan: The 2D echo was normal, elevated troponin is most likely related to sepsis (5) Paroxysmal A-fib Is this a current diagnosis for this admission?: Yes (6) Hyponatremia Is this a current diagnosis for this admission?: Yes (7) Hypomagnesemia Is this a current diagnosis for this admission?: Yes (8) Hypotension Qualifiers: Hypotension type: unspecified hypotension type Qualified Code(s): I95.9 - Hypotension, unspecified Is this a current diagnosis for this admission?: Yes (9) Exudative pleural effusion Is this a current diagnosis for this admission?: Yes (10) Benzodiazepine withdrawal Qualifiers: Complication of substance-induced condition: with delirium Qualified Code(s ): 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
[2017-07-01] MEDS: AZTREONAM 1.5 GM in DEXTROSE 5%-WATER 100 ML IV SCH ×3 (01:04→17:05)
[2017-07-01] MEDS: VANCOMYCIN HCL 500 MG in NORMAL SALINE 100 ML IV SCH ×2 (03:24→15:20)
[2017-07-01] MEDS: NORMAL SALINE 1000 ML 1,000 ML IV PRN (05:21)
[2017-07-01 05:37] LABS: ABSOLUTE BASOPHILS # (AUTO) 0.1 10^3/uL (0.0-0.2); ABSOLUTE LYMPHOCYTES (AUTO) 1.7 10^3/uL (0.5-4.7); ABSOLUTE MONOCYTES (AUTO) 0.8 10^3/uL (0.1-1.4); ABSOLUTE NEUT (AUTO) 6.5 10^3/uL (1.7-8.2); BASOPHILS % (AUTO) 0.7 % (0-2); EOSINOPHILS % (AUTO) 0.3 % (0-6); HEMATOCRIT 43.2 % (36.0-47.0); HEMOGLOBIN 15.1 g/dL (12.0-15.5); LYMPHOCYTES % (AUTO) 18.7 % (13-45); MEAN CORPUSCULAR HEMOGLOBIN 34.3 pg (27.0-33.4); MEAN CORPUSCULAR VOLUME 98 fl (80-97); MONOCYTES % (AUTO) 9.1 % (3-13); PLATELET COUNT 277 10^3/uL (150-450); RED BLOOD COUNT 4.41 10^6/uL (3.72-5.28); RED CELL DISTRIBUTION WIDTH 12.5 % (11.5-14.0); SEGMENTED NEUTROPHILS % (AUTO) 71.2 % (42-78); TOTAL CELLS COUNTED % (AUTO) 100 %; WHITE BLOOD COUNT 9.1 10^3/uL (4.0-10.5)
[2017-07-01 05:54] LABS: ALANINE AMINOTRANSFERASE 48 U/L (9-52); ALBUMIN 3.1 g/dL (3.5-5.0); ALKALINE PHOSPHATASE 89 U/L (38-126); ANION GAP 10 (5-19); ASPARTATE AMINO TRANSFERASE 41 U/L (14-36); BILIRUBIN,DIRECT 0.1 mg/dL (0.0-0.4); BILIRUBIN,TOTAL 0.4 mg/dL (0.2-1.3); BLOOD UREA NITROGEN 7 mg/dL (7-20); CALCIUM 8.2 mg/dL (8.4-10.2); CARBON DIOXIDE 21 mmol/L (22-30); CHLORIDE 89 mmol/L (98-107); GLUCOSE 103 mg/dL (75-110); POTASSIUM 3.2 mmol/L (3.6-5.0); TOTAL PROTEIN 5.4 g/dL (6.3-8.2)
[2017-07-01 06:30] LABS: SODIUM 120.2 mmol/L (137-145)
[2017-07-01] MEDS: HYDRALAZINE HCL INJ/PF 20 MG/1 ML SDV IV PRN ×2 (08:48→20:48)
[2017-07-01] MEDS: ENOXAPARIN SODIUM INJ 40 MG/0.4 ML DISP.SYRIN SUBCUT SCH (09:11)
[2017-07-01] MEDS: VALSARTAN 160 MG TABLET PO SCH (09:12)
[2017-07-01] MEDS: PROPRANOLOL HCL 40 MG TABLET PO SCH ×2 (09:12→21:10)
[2017-07-01] MEDS: HYDROCHLOROTHIAZIDE 12.5 MG CAPSULE PO SCH (09:12)
[2017-07-01] MEDS: ALPRAZOLAM 0.25 MG TABLET PO PRN ×2 (09:13→23:23)
[2017-07-01] MEDS: BUPROPION HCL 100 MG TABLET PO SCH ×2 (09:13→21:11)
[2017-07-01 13:26] LABS: OSMOLALITY,URINE 392 mOsm/kg (300-900)
[2017-07-01 13:42] LABS: URINE SODIUM 140 mmol/L (30-90)
[2017-07-01 16:42] LABS: VANCOMYCIN,TROUGH 11.8 ug/mL (5.0-20.0)
--- NOTE | 2017-07-01 17:53 | PDOC PROGRESS REPORT ---
Subjective Progress Note for:: 07/01/17 Subjective:: Patient was seen by the bedside, she is alert, she is more oriented today, we will discontinue Sidhu catheter Reason For Visit: PNEUMONIA,SEPSIS Physical Exam Vital Signs: Temp Pulse Resp BP Pulse Ox 97.6 F 67 16 171/89 H 93 07/01/17 07:41 07/01/17 13:49 07/01/17 07:41 07/01/17 07:41 07/01/17 07:41 Intake & Output 06/30/17 07/01/17 07/02/17 06:59 06:59 06:59 Intake Total 1864 2848 Output Total 2700 4500 Balance -836 -1652 Weight 62.5 kg 56.8 kg General appearance: PRESENT: no acute distress Eye exam: PRESENT: PERRLA Respiratory exam: PRESENT: decreased breath sounds Cardiovascular exam: PRESENT: +S1, +S2 GI/Abdominal exam: PRESENT: soft Neurological exam: PRESENT: alert, CN II-XII grossly intact Results Laboratory Results: 07/01/17 05:10 07/01/17 15:55 07/01/17 07/01/17 07/01/17 05:10 05:10 05:10 WBC 9.1 RBC 4.41 Hgb 15.1 Hct 43.2 MCV 98 H MCH 34.3 H MCHC 35.0 RDW 12.5 Plt Count 277 Seg Neutrophils % 71.2 Lymphocytes % 18.7 Monocytes % 9.1 Eosinophils % 0.3 Basophils % 0.7 Absolute Neutrophils 6.5 Absolute Lymphocytes 1.7 Absolute Monocytes 0.8 Absolute Eosinophils 0.0 Absolute Basophils 0.1 Sodium 120.2 L* Potassium 3.2 L Chloride 89 L Carbon Dioxide 21 L Anion Gap 10 BUN 7 Creatinine 0.37 L Est GFR ( Amer) > 60 Est GFR (Non-Af Amer) > 60 Glucose 103 Serum Osmolality 244 L Calcium 8.2 L Total Bilirubin 0.4 AST 41 H ALT 48 Alkaline Phosphatase 89 Total Protein 5.4 L Albumin 3.1 L Urine Osmolality 07/01/17 07/01/17 12:45 15:55 WBC RBC Hgb Hct MCV MCH MCHC RDW Plt Count Seg Neutrophils % Lymphocytes % Monocytes % Eosinophils % Basophils % Absolute Neutrophils Absolute Lymphocytes Absolute Monocytes Absolute Eosinophils Absolute Basophils Sodium Potassium Chloride Carbon Dioxide Anion Gap BUN Creatinine 0.48 L Est GFR ( Amer) > 60 Est GFR (Non-Af Amer) > 60 Glucose Serum Osmolality Calcium Total Bilirubin AST ALT Alkaline Phosphatase Total Protein Albumin Urine Osmolality 392 06/29/17 10:35 Pleural Fluid - Right Pleural Effusion AFB Smear Concentration - Final 06/29/17 10:35 Pleural Fluid - Right Pleural Effusion Acid Fast Bacilli Smear - Final 06/29/17 06/29/17 06/29/17 13:36 13:36 15:00 Creatine Kinase 154 H 127 CK-MB (CK-2) Cancelled Troponin I Cancelled 06/29/17 15:00 Creatine Kinase CK-MB (CK-2) 11.80 H Troponin I 3.060 Impressions: Thoracentesis Ultrasound 06/29/17 04:03 IMPRESSION: SUCCESSFUL DIAGNOSTIC AND THERAPEUTIC THORACENTESIS USING ULTRASOUND GUIDANCE. Chest X-Ray 06/29/17 14:00 IMPRESSION: No pneumothorax 2 hours post right-sided thoracentesis. Assessment & Plan - Diagnosis (1) Sepsis Qualifiers: Sepsis type: sepsis due to unspecified organism Qualified Code(s): A41.9 - Sepsis, unspecified organism Is this a current diagnosis for this admission?: Yes (2) Pneumonia Qualifiers: Pneumonia type: due to unspecified organism Laterality: right Lung location: unspecified part of lung Qualified Code(s): J18.9 - Pneumonia, unspecified organism Is this a current diagnosis for this admission?: Yes (3) Pleural effusion on right Is this a current diagnosis for this admission?: Yes (4) Elevated troponin Is this a current diagnosis for this admission?: Yes (5) Paroxysmal A-fib Is this a current diagnosis for this admission?: Yes (6) Hyponatremia Is this a current diagnosis for this admission?: Yes (7) Hypomagnesemia Is this a current diagnosis for this admission?: Yes (8) Hypotension Qualifiers: Hypotension type: unspecified hypotension type Qualified Code(s): I95.9 - Hypotension, unspecified Is this a current diagnosis for this admission?: Yes (9) Exudative pleural effusion Is this a current diagnosis for this admission?: Yes (10) Benzodiazepine withdrawal Qualifiers: Complication of substance-induced condition: with delirium Qualified Code(s ): 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
[2017-07-01] MEDS ORDERED: NORMAL SALINE 1000 ML 1,000 ML IV PRN (17:54)
[2017-07-01] MEDS: ZOLPIDEM TARTRATE 5 MG TABLET PO SCH (21:10)
[2017-07-01] MEDS: LEVOFLOXACIN 750 MG/D5W RTU 750 MG/150 ML RTUPB IV SCH (21:11)
[2017-07-02] MEDS: AZTREONAM 1.5 GM in DEXTROSE 5%-WATER 100 ML IV SCH ×3 (01:11→17:08)
[2017-07-02] MEDS: VANCOMYCIN HCL 500 MG in NORMAL SALINE 100 ML IV SCH ×2 (03:14→15:36)
[2017-07-02 06:16] LABS: ABSOLUTE EOSINOPHILS # (AUTO) 0.1 10^3/uL (0.0-0.6); ABSOLUTE LYMPHOCYTES (AUTO) 1.5 10^3/uL (0.5-4.7); ABSOLUTE MONOCYTES (AUTO) 0.6 10^3/uL (0.1-1.4); ABSOLUTE NEUT (AUTO) 5.3 10^3/uL (1.7-8.2); BASOPHILS % (AUTO) 0.1 % (0-2); HEMOGLOBIN 15.3 g/dL (12.0-15.5); LYMPHOCYTES % (AUTO) 20.6 % (13-45); MEAN CORPUSCULAR HEMOGLOBIN 34.3 pg (27.0-33.4); MEAN CORPUSCULAR HGB CONC 34.7 g/dL (32.0-36.0); MEAN CORPUSCULAR VOLUME 99 fl (80-97); MONOCYTES % (AUTO) 7.9 % (3-13); PLATELET COUNT 306 10^3/uL (150-450); RED BLOOD COUNT 4.46 10^6/uL (3.72-5.28); RED CELL DISTRIBUTION WIDTH 12.7 % (11.5-14.0); SEGMENTED NEUTROPHILS % (AUTO) 70.4 % (42-78); TOTAL CELLS COUNTED % (AUTO) 100 %; WHITE BLOOD COUNT 7.5 10^3/uL (4.0-10.5)
[2017-07-02 06:31] LABS: ALANINE AMINOTRANSFERASE 41 U/L (9-52); ALBUMIN 2.9 g/dL (3.5-5.0); ALKALINE PHOSPHATASE 82 U/L (38-126); ANION GAP 13 (5-19); ASPARTATE AMINO TRANSFERASE 29 U/L (14-36); BILIRUBIN,DIRECT 0.4 mg/dL (0.0-0.4); BILIRUBIN,TOTAL 0.6 mg/dL (0.2-1.3); BLOOD UREA NITROGEN 8 mg/dL (7-20); CALCIUM 8.2 mg/dL (8.4-10.2); CARBON DIOXIDE 23 mmol/L (22-30); CHLORIDE 82 mmol/L (98-107); GLUCOSE 104 mg/dL (75-110); POTASSIUM 3.3 mmol/L (3.6-5.0); TOTAL PROTEIN 5.5 g/dL (6.3-8.2)
[2017-07-02] MEDS ORDERED: FUROSEMIDE INJ/PF 40 MG/4 ML SDV ONE (06:46)
--- NOTE | 2017-07-02 06:51 | RADIOLOGY REPORT (SQ) ---
EXAM DESCRIPTION: CHEST SINGLE VIEW CLINICAL HISTORY: SOB COMPARISON: 06/29/2014 FINDINGS: Single frontal view of the chest. Atherosclerotic calcification aortic arch. Cardiomegaly. Right basilar consolidation and right pleural effusion. Minimal patchy left basilar opacity and possible tiny left pleural effusion. No pneumothorax. No displaced rib fractures. Upper abdominal soft tissues are unremarkable. IMPRESSION: 1. Left basilar consolidation and moderate left pleural effusion. No significant interval change. Electronically signed by: Josh Espinal 07/02/2017 5:50 AM
[2017-07-02] MEDS ORDERED: FUROSEMIDE INJ/PF 40 MG/4 ML SDV IV ONE (07:00)
[2017-07-02] MEDS: VALSARTAN 160 MG TABLET PO SCH (09:37)
[2017-07-02] MEDS: HYDROCHLOROTHIAZIDE 12.5 MG CAPSULE PO SCH (09:37)
[2017-07-02] MEDS: PROPRANOLOL HCL 40 MG TABLET PO SCH ×2 (09:37→21:55)
[2017-07-02] MEDS: BUPROPION HCL 100 MG TABLET PO SCH ×2 (09:38→21:55)
[2017-07-02] MEDS: ENOXAPARIN SODIUM INJ 40 MG/0.4 ML DISP.SYRIN SUBCUT SCH (09:38)
[2017-07-02 11:51] LABS: INTERNATIONAL RATION (INR) 0.99; PROTHROMBIN TIME 13.8 SEC (11.4-15.4)
[2017-07-02 11:52] LABS: PARTIAL THROMBOPLASTIN TIME 30.3 SEC (23.5-35.8)
--- NOTE | 2017-07-02 14:04 | PDOC PROGRESS REPORT ---
Subjective Progress Note for:: 07/02/17 Subjective:: She was seen by the bedside, she had episode of shortness of breath last night, chest x-ray was done, it showed a large right pleural effusion. On admission she had thoracentesis done, about 1400 mL of pleural fluid was collected, it was exudative fluid suggesting infection or malignancy presently on IV antibiotic. Consultation will be requested from surgery for chest tube placement. Reason For Visit: PNEUMONIA,SEPSIS Physical Exam Vital Signs: Temp Pulse Resp BP Pulse Ox 97.9 F 64 18 144/68 H 99 07/02/17 07:39 07/02/17 07:39 07/02/17 07:39 07/02/17 07:39 07/02/17 07:39 Intake & Output 07/01/17 07/02/17 07/03/17 06:59 06:59 06:59 Intake Total 2848 2305 300 Output Total 4500 1500 1600 Balance -1652 805 -1300 Weight 56.8 kg 56.7 kg General appearance: PRESENT: no acute distress, well-developed, well-nourished Head exam: PRESENT: atraumatic, normocephalic Eye exam: PRESENT: conjunctiva pink, EOMI, PERRLA. ABSENT: scleral icterus Ear exam: PRESENT: normal external ear exam Mouth exam: PRESENT: moist, tongue midline Neck exam: PRESENT: full ROM Respiratory exam: PRESENT: decreased breath sounds Cardiovascular exam: PRESENT: RRR, +S1, +S2 GI/Abdominal exam: PRESENT: normal bowel sounds, soft Rectal exam: PRESENT: deferred Neurological exam: PRESENT: alert, awake, oriented to person, oriented to place , oriented to time, oriented to situation, CN II-XII grossly intact Psychiatric exam: PRESENT: appropriate affect, normal mood Skin exam: PRESENT: dry, intact, warm Results Laboratory Results: 07/02/17 05:15 07/02/17 05:15 07/01/17 07/02/17 07/02/17 15:55 05:15 05:15 WBC 7.5 RBC 4.46 Hgb 15.3 Hct 44.0 MCV 99 H MCH 34.3 H MCHC 34.7 RDW 12.7 Plt Count 306 Seg Neutrophils % 70.4 Lymphocytes % 20.6 Monocytes % 7.9 Eosinophils % 1.0 Basophils % 0.1 Absolute Neutrophils 5.3 Absolute Lymphocytes 1.5 Absolute Monocytes 0.6 Absolute Eosinophils 0.1 Absolute Basophils 0.0 Sodium 118.0 L* Potassium 3.3 L Chloride 82 L Carbon Dioxide 23 Anion Gap 13 BUN 8 Creatinine 0.48 L 0.55 Est GFR ( Amer) > 60 > 60 Est GFR (Non-Af Amer) > 60 > 60 Glucose 104 Calcium 8.2 L Total Bilirubin 0.6 AST 29 ALT 41 Alkaline Phosphatase 82 Total Protein 5.5 L Albumin 2.9 L 06/29/17 06/29/17 06/29/17 13:36 13:36 15:00 Creatine Kinase 154 H 127 CK-MB (CK-2) Cancelled Troponin I Cancelled 06/29/17 15:00 Creatine Kinase CK-MB (CK-2) 11.80 H Troponin I 3.060 Impressions: Thoracentesis Ultrasound 06/29/17 04:03 IMPRESSION: SUCCESSFUL DIAGNOSTIC AND THERAPEUTIC THORACENTESIS USING ULTRASOUND GUIDANCE. Chest X-Ray 07/02/17 00:00 IMPRESSION: 1. Left basilar consolidation and moderate left pleural effusion. No significant interval change. Assessment & Plan - Diagnosis (1) Sepsis Qualifiers: Sepsis type: sepsis due to unspecified organism Qualified Code(s): A41.9 - Sepsis, unspecified organism Is this a current diagnosis for this admission?: Yes (2) Pneumonia Qualifiers: Pneumonia type: due to unspecified organism Laterality: right Lung location: unspecified part of lung Qualified Code(s): J18.9 - Pneumonia, unspecified organism Is this a current diagnosis for this admission?: Yes (3) Pleural effusion on right Is this a current diagnosis for this admission?: Yes (4) Elevated troponin Is this a current diagnosis for this admission?: Yes (5) Paroxysmal A-fib Is this a current diagnosis for this admission?: Yes (6) Hyponatremia Is this a current diagnosis for this admission?: Yes (7) Hypomagnesemia Is this a current diagnosis for this admission?: Yes (8) Hypotension Qualifiers: Hypotension type: unspecified hypotension type Qualified Code(s): I95.9 - Hypotension, unspecified Is this a current diagnosis for this admission?: Yes (9) Exudative pleural effusion Is this a current diagnosis for this admission?: Yes (10) Benzodiazepine withdrawal Qualifiers: Complication of substance-induced condition: with delirium Qualified Code(s ): 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
[2017-07-02] MEDS ORDERED: LIDOCAINE 0.5% INJ-PF (5 MG/ML) 50 ML SDV ONE (16:14)
--- NOTE | 2017-07-02 17:12 | RADIOLOGY REPORT (SQ) ---
EXAM DESCRIPTION: CHEST SINGLE VIEW COMPLETED DATE/TIME: 07/02/2017 5:00 pm REASON FOR STUDY: chest tube COMPARISON: 07/02/2017 EXAM PARAMETERS: NUMBER OF VIEWS: One view. TECHNIQUE: Single frontal radiographic view of the chest acquired. RADIATION DOSE: NA LIMITATIONS: None. FINDINGS: LUNGS AND PLEURA: Interval placement of a large caliber chest tube. Marked reduction in t he right pleural effusion. There is a 2 cm apical pneumothorax on the right. Left lung is clear. MEDIASTINUM AND HILAR STRUCTURES: No masses. Contour normal. HEART AND VASCULAR STRUCTURES: Heart normal in size. Normal vasculature. BONES: No acute findings. HARDWARE: None in the chest. OTHER: No other significant finding. IMPRESSION: Marked reduction the right pleural effusion status post chest tube placement on the righ t. Resulting 2 cm apical pneumothorax. TECHNICAL DOCUMENTATION: JOB ID: [id number] [employer]- All Rights Reserved Reading location - IP/workstation name: [email or web address]
[2017-07-02] MEDS: HYDROMORPHONE HCL INJ/PF 2 MG/ML AMPULE IV PRN ×2 (17:13→22:08)
--- NOTE | 2017-07-02 17:34 | Operative Report ---
Operative Report DATE OF SURGERY: 07/02/17 PREOPERATIVE DIAGNOSIS: Massive right pleural effusion POSTOPERATIVE DIAGNOSIS: Massive right chylothorax; rule out underlying right pulmonary malignancy OPERATION: 1. Placement of 32 K[place]ili right thoracostomy tube and drainage of right chylothorax. 2. Interpretation of portable upright chest x-ray SURGEON: YINKA RIDDLE ANESTHESIA: Local TISSUE REMOVED OR ALTERED: Right pleural chylothorax COMPLICATIONS: None ESTIMATED BLOOD LOSS: Scant INTRAOPERATIVE FINDINGS: Below PROCEDURE: The patient was seen the third floor [facility] semirecumbent position. Right chest anterior and lateral aspect exposed. Surgical timeout conducted The right anterior lateral chest was prepped and draped in a sterile fashion. Skin was anesthetized with 1% plain lidocaine, as was the intercostal space. Plan made for insertion of thoracostomy tube, 32 K[place]ili, at ICS 7. Skin incised with 15 blade, Quin clamps used to spread subcutaneous tissue and intercostal musculature and into the pleural space. Immediately encountered a massive amount of foul-smelling thick white material consistent with lymph. The 32 K[place]ili chest tube was inserted such that the sentinel hole was 8 cm from the skin level. Tube secured with 0 silk suture Xeroform 4 x 4's tape. Patient then drain ultimately 3 L of lymphatic fluid from the right chest. She tolerated this well. Chest tube was hooked to a second Pleur-evac, waterseal. Portable upright chest x-ray showed excellent position of the chest tube in the posterior lateral right pleural space, with an apical pneumothorax. The pneumothorax will be managed with pulmonary toilet coughing and deep breathing as this was likely an effect of the chest tube insertion and not guest service representative of a bronchopleural fistula. We will obtain a follow-up chest x-ray in the morning. Nursing instructions discussed with staff orders written. Fluid was sent for cytologic analysis.
[2017-07-02 18:32] LABS: FLUID APPEARANCE TURBID; FLUID COLOR PINK; FLUID TYPE PLEURAL; FLUID VISCOSITY LIQUID
[2017-07-02 20:41] LABS: ALANINE AMINOTRANSFERASE 34 U/L (9-52); ALKALINE PHOSPHATASE 66 U/L (38-126); ANION GAP 10 (5-19); ASPARTATE AMINO TRANSFERASE 29 U/L (14-36); BILIRUBIN,DIRECT 0.5 mg/dL (0.0-0.4); BILIRUBIN,TOTAL 0.6 mg/dL (0.2-1.3); BLOOD UREA NITROGEN 10 mg/dL (7-20); CALCIUM 8.5 mg/dL (8.4-10.2); CARBON DIOXIDE 28 mmol/L (22-30); CHLORIDE 80 mmol/L (98-107); GLUCOSE 121 mg/dL (75-110); POTASSIUM 3.6 mmol/L (3.6-5.0); TOTAL PROTEIN 5.6 g/dL (6.3-8.2)
[2017-07-02 20:44] LABS: SODIUM 118.3 mmol/L (137-145)
[2017-07-02] MEDS: ALPRAZOLAM 0.25 MG TABLET PO PRN (20:50)
[2017-07-02] MEDS: ZOLPIDEM TARTRATE 5 MG TABLET PO SCH (21:54)
[2017-07-02] MEDS: LEVOFLOXACIN 750 MG/D5W RTU 750 MG/150 ML RTUPB IV SCH (21:56)
--- NOTE | 2017-07-02 22:21 | RADIOLOGY REPORT (SQ) ---
EXAM DESCRIPTION: CT CHEST WITH COMPLETED DATE/TIME: 07/02/2017 9:09 pm REASON FOR STUDY: chylothorax ,suspect malignant lesion COMPARISON: None. TECHNIQUE: CT scan of the chest performed using helical scanning technique with dynamic intravenous contrast injection. Images reviewed with lung, soft tissue and bone windows. Reconstructed coronal and sagittal MPR images reviewed. All images stored on PACS. All CT scanners at this facility use dose modulation, iterative reconstruction, and/or weight based d osing when appropriate to reduce radiation dose to as low as reasonably achievable (ALARA). [facility]: Dose Right [facility]: CareDose [facility]: Dose Right [facility]: Teradose 4D [facility]: Smart LiquidPiston CONTRAST TYPE AND DOSE: contrast/concentration: Isovue 370.00 mg/ml; Total Contrast Delivered: 80.0 ml; Total Saline Delivered: 55.0 ml RENAL FUNCTION: GFR > 60. RADIATION DOSE: CT Rad equipment meets quality standard of care and radiation dose reduction techniq ues were employed. CTDIvol: 5.9 mGy. DLP: 262 mGy-cm. . LIMITATIONS: None. FINDINGS: 4.6 cm right parahilar mass which occludes the middle lobe and the bronchus intermedius w ith moderate postobstructive atelectasis. There is bulky adenopathy in the paratracheal and subcarin al stations. Medium sized hydropneumothorax on the right with chest tube in place in the posterior s ulcus at the mid thorax level. Diffuse interstitial and nodular changes are present in both lungs. There is apical nodular thickening bilaterally. BONES: No acute finding. OTHER: No other significant finding. IMPRESSION: 4.6 cm right parahilar mass which occludes the middle lobe and the bronchus intermedius with moderate postobstructive atelectasis. There is bulky adenopathy in the paratracheal and subcari nal stations. Medium sized hydropneumothorax on the right with chest tube in place in the posterior sulcus at the mid thorax level. TECHNICAL DOCUMENTATION: JOB ID: [id number] Quality ID # [id number]: Final reports with documentation of one or more dose reduction techniques (e.g., Au tomated exposure control, adjustment of the mA and/or kV according to patient size, use of iterative reconstruction technique) 2010 [employer]- All Rights Reserved Reading location - IP/workstation name: [email or web address]
[2017-07-03] MEDS: AZTREONAM 1.5 GM in DEXTROSE 5%-WATER 100 ML IV SCH ×3 (01:05→18:24)
[2017-07-03] MEDS: VANCOMYCIN HCL 500 MG in NORMAL SALINE 100 ML IV SCH ×2 (03:22→15:58)
[2017-07-03] MEDS: ALPRAZOLAM 0.25 MG TABLET PO PRN (05:59)
[2017-07-03] MEDS ORDERED: LORAZEPAM 1 MG TABLET PO PRN (06:42)
[2017-07-03] MEDS ORDERED: LORAZEPAM INJ 2 MG/1 ML VIAL ONE (06:45)
[2017-07-03] MEDS ORDERED: FLUMAZENIL INJ 0.5 MG/5 ML VIAL ONE ×2 (07:33→07:39)
[2017-07-03] MEDS ORDERED: LORAZEPAM INJ 2 MG/1 ML VIAL IV PRN (08:11)
[2017-07-03 08:16] LABS: ABSOLUTE LYMPHOCYTES (AUTO) 1.3 10^3/uL (0.5-4.7); ABSOLUTE NEUT (AUTO) 6.9 10^3/uL (1.7-8.2); BASOPHILS % (AUTO) 0.4 % (0-2); EOSINOPHILS % (AUTO) 0.5 % (0-6); HEMOGLOBIN 14.8 g/dL (12.0-15.5); LYMPHOCYTES % (AUTO) 13.6 % (13-45); MEAN CORPUSCULAR HEMOGLOBIN 33.7 pg (27.0-33.4); MEAN CORPUSCULAR HGB CONC 34.4 g/dL (32.0-36.0); MEAN CORPUSCULAR VOLUME 98 fl (80-97); MONOCYTES % (AUTO) 10.4 % (3-13); PLATELET COUNT 298 10^3/uL (150-450); RED BLOOD COUNT 4.39 10^6/uL (3.72-5.28); RED CELL DISTRIBUTION WIDTH 12.5 % (11.5-14.0); SEGMENTED NEUTROPHILS % (AUTO) 75.1 % (42-78); TOTAL CELLS COUNTED % (AUTO) 100 %; WHITE BLOOD COUNT 9.2 10^3/uL (4.0-10.5)
[2017-07-03 08:30] LABS: BLOOD UREA NITROGEN 14 mg/dL (7-20); CALCIUM 8.5 mg/dL (8.4-10.2); CARBON DIOXIDE 26 mmol/L (22-30); CHLORIDE 85 mmol/L (98-107); GLUCOSE 106 mg/dL (75-110); POTASSIUM 3.5 mmol/L (3.6-5.0)
[2017-07-03 08:36] LABS: ANION GAP 9 (5-19)
[2017-07-03 08:45] LABS: SODIUM 120.1 mmol/L (137-145)
[2017-07-03 09:00] LABS: ARTERIAL BLOOD H2CO3 1.24 mmol/L (1.05-1.35); ARTERIAL BLOOD O2 SATURATION 93.3 % (94-98); ARTERIAL BLOOD PCO2 41.2 mmHg (35-45); ARTERIAL BLOOD PH 7.38 (7.35-7.45); ARTERIAL BLOOD PO2 67.8 mmHg (80-100); ARTERIAL BLOOD TOTAL CO2 25.3 mmol/L (21-25)
[2017-07-03 09:02] LABS: ARTERIAL BLOOD FIO2 28%
--- NOTE | 2017-07-03 09:52 | RADIOLOGY REPORT (SQ) ---
EXAM DESCRIPTION: CHEST SINGLE VIEW COMPLETED DATE/TIME: 07/03/2017 9:36 am REASON FOR STUDY: Interval change in right apical pneumothorax COMPARISON: CT chest 07/02/2017 Chest films 07/02/2017, 06/29/2017 EXAM PARAMETERS: NUMBER OF VIEWS: One view. TECHNIQUE: Single frontal radiographic view of the chest acquired. RADIATION DOSE: NA LIMITATIONS: None. FINDINGS: LUNGS AND PLEURA: A large caliber right chest tube is present over the right lower hemitho rax. 10 to 20% pneumothorax at the right lung apex is stable compared to 07/02/2017. Since 07/02/2017 the patient has developed consolidation at the right lung base likely atelectasis. P neumonia could not be excluded. Left lung well inflated. Few Luci lines at the left lung base, question microatelectasis versus mi nimal interstitial edema. MEDIASTINUM AND HILAR STRUCTURES: The right hilar, and sub-carinal soft tissue/adenopathy seen on CT 07/02/2017 is not apparent by plain films. HEART AND VASCULAR STRUCTURES: Heart normal in size. Normal vasculature. BONES: No acute findings. HARDWARE: Large bore right chest tube OTHER: No other significant finding. IMPRESSION: Large bore right chest tube unchanged. Stable 10 to 20% apical pneumothorax compared to 07/02/2017 Since 07/02/2017 patient has developed consolidation at the right lung base atelectasis versus pneumon ia. Right hilar and sub- carinal adenopathy seen on CT chest 07/02/2017 is difficult to visualize by chest film TECHNICAL DOCUMENTATION: JOB ID: [id number] [employer]- All Rights Reserved Reading location - IP/workstation name: [email or web address]
[2017-07-03] MEDS: ENOXAPARIN SODIUM INJ 40 MG/0.4 ML DISP.SYRIN SUBCUT SCH (10:04)
[2017-07-03] MEDS: PROPRANOLOL HCL 40 MG TABLET PO SCH (10:12)
[2017-07-03] MEDS: HYDROCHLOROTHIAZIDE 12.5 MG CAPSULE PO SCH (10:12)
[2017-07-03] MEDS: BUPROPION HCL 100 MG TABLET PO SCH ×2 (10:12→22:06)
[2017-07-03] MEDS: VALSARTAN 160 MG TABLET PO SCH (10:12)
[2017-07-03] MEDS ORDERED: KETOROLAC TROMETHAMINE INJ/PF 30 MG/1 ML SDV IV ONE (10:30)
[2017-07-03] MEDS ORDERED: HYDROMORPHONE HCL INJ/PF 2 MG/ML AMPULE IV ONE (18:00)
[2017-07-03 18:51] LABS: ALANINE AMINOTRANSFERASE 34 U/L (9-52); ALBUMIN 2.6 g/dL (3.5-5.0); ALKALINE PHOSPHATASE 57 U/L (38-126); ANION GAP 7 (5-19); ASPARTATE AMINO TRANSFERASE 33 U/L (14-36); BILIRUBIN,DIRECT 0.4 mg/dL (0.0-0.4); BILIRUBIN,TOTAL 0.5 mg/dL (0.2-1.3); BLOOD UREA NITROGEN 11 mg/dL (7-20); CALCIUM 8.5 mg/dL (8.4-10.2); CARBON DIOXIDE 24 mmol/L (22-30); CHLORIDE 91 mmol/L (98-107); GLUCOSE 101 mg/dL (75-110); POTASSIUM 3.3 mmol/L (3.6-5.0); SODIUM 121.8 mmol/L (137-145); TOTAL PROTEIN 5.1 g/dL (6.3-8.2)
--- NOTE | 2017-07-03 18:55 | PDOC PROGRESS REPORT ---
Subjective Progress Note for:: 07/03/17 Subjective:: right chest pains around chest tube Reason For Visit: PNEUMONIA,SEPSIS Physical Exam Vital Signs: Temp Pulse Resp BP Pulse Ox 98.6 F 67 16 124/60 99 07/03/17 12:00 07/03/17 14:00 07/03/17 12:00 07/03/17 12:00 07/03/17 16:45 Intake & Output 07/02/17 07/03/17 07/04/17 06:59 06:59 06:59 Intake Total 2305 2000 0 Output Total 1500 7900 300 Balance 805 -5900 -300 Weight 56.7 kg 53.9 kg Exam: Patient is arousable this am. Became agitated in the afternoon Still unable to take anything p.o. Chest tube drained another 500 ccs of Chylous fluid Results Laboratory Results: 07/03/17 07:58 07/02/17 07/02/17 07/03/17 17:31 20:10 07:58 WBC 9.2 RBC 4.39 Hgb 14.8 Hct 43.0 MCV 98 H MCH 33.7 H MCHC 34.4 RDW 12.5 Plt Count 298 Seg Neutrophils % 75.1 Lymphocytes % 13.6 Monocytes % 10.4 Eosinophils % 0.5 Basophils % 0.4 Absolute Neutrophils 6.9 Absolute Lymphocytes 1.3 Absolute Monocytes 1.0 Absolute Eosinophils 0.0 Absolute Basophils 0.0 Carbonic Acid HCO3/H2CO3 Ratio ABG pH ABG pCO2 ABG pO2 ABG HCO3 ABG O2 Saturation ABG Base Excess FiO2 Sodium 118.3 L* Potassium 3.6 Chloride 80 L Carbon Dioxide 28 Anion Gap 10 BUN 10 Creatinine 0.56 Est GFR ( Amer) > 60 Est GFR (Non-Af Amer) > 60 Glucose 121 H Calcium 8.5 Total Bilirubin 0.6 AST 29 ALT 34 Alkaline Phosphatase 66 Total Protein 5.6 L Albumin 3.0 L Fluid Type PLEURAL Fluid Source Fluid Color PINK Fluid Appearance TURBID Fluid Viscosity LIQUID Fluid WBC 3390 Fluid RBC 8125 07/03/17 07/03/17 07:58 08:35 WBC RBC Hgb Hct MCV MCH MCHC RDW Plt Count Seg Neutrophils % Lymphocytes % Monocytes % Eosinophils % Basophils % Absolute Neutrophils Absolute Lymphocytes Absolute Monocytes Absolute Eosinophils Absolute Basophils Carbonic Acid 1.24 HCO3/H2CO3 Ratio 19:1 ABG pH 7.38 ABG pCO2 41.2 ABG pO2 67.8 L ABG HCO3 24.0 ABG O2 Saturation 93.3 L ABG Base Excess -1.0 FiO2 28% Sodium 120.1 L* Potassium 3.5 L Chloride 85 L Carbon Dioxide 26 Anion Gap 9 BUN 14 Creatinine 0.80 Est GFR ( Amer) > 60 Est GFR (Non-Af Amer) > 60 Glucose 106 Calcium 8.5 Total Bilirubin AST ALT Alkaline Phosphatase Total Protein Albumin Fluid Type Fluid Source Fluid Color Fluid Appearance Fluid Viscosity Fluid WBC Fluid RBC 06/29/17 10:35 Pleural Fluid - Right Pleural Effusion Gram Stain - Final 06/29/17 10:35 Pleural Fluid - Right Pleural Effusion Body Fluid Culture - Final NO AEROBIC OR ANAEROBIC ORGANISMS RECOVERED 06/29/17 10:35 Pleural Fluid - Right Pleural Effusion Fungal Smear - Final 06/29/17 10:35 Pleural Fluid - Right Pleural Effusion Fungal Smear - Final 06/29/17 06/29/17 06/29/17 13:36 13:36 15:00 Creatine Kinase 154 H 127 CK-MB (CK-2) Cancelled Troponin I Cancelled 06/29/17 15:00 Creatine Kinase CK-MB (CK-2) 11.80 H Troponin I 3.060 Impressions: Thoracentesis Ultrasound 06/29/17 04:03 IMPRESSION: SUCCESSFUL DIAGNOSTIC AND THERAPEUTIC THORACENTESIS USING ULTRASOUND GUIDANCE. Chest CT 07/02/17 00:00 IMPRESSION: 4.6 cm right parahilar mass which occludes the middle lobe and the bronchus intermedius with moderate postobstructive atelectasis. There is bulky adenopathy in the paratracheal and subcarinal stations. Medium sized hydropneumothorax on the right with chest tube in place in the posterior sulcus at the mid thorax level. Chest X-Ray 07/03/17 00:00 IMPRESSION: Large bore right chest tube unchanged. Stable 10 to 20% apical pneumothorax compared to 07/02/2017 Since 07/02/2017 patient has developed consolidation at the right lung base atelectasis versus pneumonia. Right hilar and sub- carinal adenopathy seen on CT chest 07/02/2017 is difficult to visualize by chest film Assessment & Plan - Diagnosis (1) right hilar mass Is this a current diagnosis for this admission?: Yes - Time Time Spent with patient: 25-34 minutes - Inpatient Certification Medical Necessity: Need For IV Fluids, Need for Pain Control, Need for IV Antibiotics - Plan Summary Plan Summary: Discussed with Dr Valencia for possible brochoscopy. Long talk with sister in am and son in the afternoon Re: potential for transfer to a tertiary hospital where there is better thoracic med/surg back up.Older son coming tonight for family to discuss further therapy. Dr Valencia has upadated family on CT chest findings and possibility for malignancy. He wants to do CT Brain and abd/pelvis to R/O mets if patient will cooperate.
--- NOTE | 2017-07-03 20:24 | PDOC PROGRESS REPORT ---
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 The CT chest showed a 4.6 cm right parahilar mass which includes the middle lobe and the bronchus intermedius with moderate postobstructive atelectasis. There is bulky adenopathy in the paratracheal and subcarinal stations. Medium- sized hydropneumothorax on the right which has been placed in the posterior sulcus at the midthoracic level. Diffuse interstitial and nodular changes are present in both lungs. There is apical nodular thickening bilaterally. She had low blood pressure today requiring normal saline boluses with gnosticist of blood pressure, she has severe hyponatremia due to SIADH type. She continues to be confused requiring restraint because she pulled on the IV access and also the chest tube Reason For Visit: PNEUMONIA,SEPSIS Physical Exam Vital Signs: Temp Pulse Resp BP Pulse Ox 98.2 F 71 24 H 135/73 H 98 07/03/17 16:58 07/03/17 16:58 07/03/17 16:58 07/03/17 16:58 07/03/17 16:58 Intake & Output 07/02/17 07/03/17 07/04/17 06:59 06:59 06:59 Intake Total 2305 2000 150 Output Total 1500 7900 900 Balance 805 -5900 -750 Weight 56.7 kg 53.9 kg General appearance: PRESENT: thin Head exam: PRESENT: atraumatic, normocephalic Eye exam: PRESENT: PERRLA Respiratory exam: PRESENT: decreased breath sounds Cardiovascular exam: PRESENT: +S1, +S2 GI/Abdominal exam: PRESENT: soft Neurological exam: PRESENT: alert Psychiatric exam: PRESENT: agitated Results Laboratory Results: 07/03/17 07:58 07/03/17 18:23 07/02/17 07/03/17 07/03/17 20:10 07:58 07:58 WBC 9.2 RBC 4.39 Hgb 14.8 Hct 43.0 MCV 98 H MCH 33.7 H MCHC 34.4 RDW 12.5 Plt Count 298 Seg Neutrophils % 75.1 Lymphocytes % 13.6 Monocytes % 10.4 Eosinophils % 0.5 Basophils % 0.4 Absolute Neutrophils 6.9 Absolute Lymphocytes 1.3 Absolute Monocytes 1.0 Absolute Eosinophils 0.0 Absolute Basophils 0.0 Carbonic Acid HCO3/H2CO3 Ratio ABG pH ABG pCO2 ABG pO2 ABG HCO3 ABG O2 Saturation ABG Base Excess FiO2 Sodium 118.3 L* 120.1 L* Potassium 3.6 3.5 L Chloride 80 L 85 L Carbon Dioxide 28 26 Anion Gap 10 9 BUN 10 14 Creatinine 0.56 0.80 Est GFR ( Amer) > 60 > 60 Est GFR (Non-Af Amer) > 60 > 60 Glucose 121 H 106 Calcium 8.5 8.5 Total Bilirubin 0.6 AST 29 ALT 34 Alkaline Phosphatase 66 Total Protein 5.6 L Albumin 3.0 L 07/03/17 07/03/17 08:35 18:23 WBC RBC Hgb Hct MCV MCH MCHC RDW Plt Count Seg Neutrophils % Lymphocytes % Monocytes % Eosinophils % Basophils % Absolute Neutrophils Absolute Lymphocytes Absolute Monocytes Absolute Eosinophils Absolute Basophils Carbonic Acid 1.24 HCO3/H2CO3 Ratio 19:1 ABG pH 7.38 ABG pCO2 41.2 ABG pO2 67.8 L ABG HCO3 24.0 ABG O2 Saturation 93.3 L ABG Base Excess -1.0 FiO2 28% Sodium 121.8 L Potassium 3.3 L Chloride 91 L Carbon Dioxide 24 Anion Gap 7 BUN 11 Creatinine 0.53 Est GFR ( Amer) > 60 Est GFR (Non-Af Amer) > 60 Glucose 101 Calcium 8.5 Total Bilirubin 0.5 AST 33 ALT 34 Alkaline Phosphatase 57 Total Protein 5.1 L Albumin 2.6 L 06/29/17 10:35 Pleural Fluid - Right Pleural Effusion Gram Stain - Final 06/29/17 10:35 Pleural Fluid - Right Pleural Effusion Body Fluid Culture - Final NO AEROBIC OR ANAEROBIC ORGANISMS RECOVERED 06/29/17 10:35 Pleural Fluid - Right Pleural Effusion Fungal Smear - Final 06/29/17 10:35 Pleural Fluid - Right Pleural Effusion Fungal Smear - Final 06/29/17 06/29/17 06/29/17 13:36 13:36 15:00 Creatine Kinase 154 H 127 CK-MB (CK-2) Cancelled Troponin I Cancelled 06/29/17 15:00 Creatine Kinase CK-MB (CK-2) 11.80 H Troponin I 3.060 Impressions: Thoracentesis Ultrasound 06/29/17 04:03 IMPRESSION: SUCCESSFUL DIAGNOSTIC AND THERAPEUTIC THORACENTESIS USING ULTRASOUND GUIDANCE. Chest CT 07/02/17 00:00 IMPRESSION: 4.6 cm right parahilar mass which occludes the middle lobe and the bronchus intermedius with moderate postobstructive atelectasis. There is bulky adenopathy in the paratracheal and subcarinal stations. Medium sized hydropneumothorax on the right with chest tube in place in the posterior sulcus at the mid thorax level. Chest X-Ray 07/03/17 00:00 IMPRESSION: Large bore right chest tube unchanged. Stable 10 to 20% apical pneumothorax compared to 07/02/2017 Since 07/02/2017 patient has developed consolidation at the right lung base atelectasis versus pneumonia. Right hilar and sub- carinal adenopathy seen on CT chest 07/02/2017 is difficult to visualize by chest film Assessment & Plan - Diagnosis (1) Sepsis Qualifiers: Sepsis type: sepsis due to unspecified organism Qualified Code(s): A41.9 - Sepsis, unspecified organism Is this a current diagnosis for this admission?: Yes (2) Pneumonia Qualifiers: Pneumonia type: due to unspecified organism Laterality: right Lung location: middle lobe of lung Qualified Code(s): J18.1 - Lobar pneumonia, unspecified organism Is this a current diagnosis for this admission?: Yes (3) Pleural effusion on right Is this a current diagnosis for this admission?: Yes (4) Elevated troponin Is this a current diagnosis for this admission?: Yes (5) Paroxysmal A-fib Is this a current diagnosis for this admission?: Yes (6) Hyponatremia Is this a current diagnosis for this admission?: Yes (7) Hypomagnesemia Is this a current diagnosis for this admission?: Yes (8) Hypotension Qualifiers: Hypotension type: unspecified hypotension type Qualified Code(s): I95.9 - Hypotension, unspecified Is this a current diagnosis for this admission?: Yes Plan: The blood pressure responded to saline bolus (9) Exudative pleural effusion Is this a current diagnosis for this admission?: Yes (10) Benzodiazepine withdrawal Qualifiers: Complication of substance-induced condition: with delirium Qualified Code(s ): 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
[2017-07-03] MEDS: LEVOFLOXACIN 750 MG/D5W RTU 750 MG/150 ML RTUPB IV SCH (22:07)
[2017-07-03] MEDS: ZOLPIDEM TARTRATE 5 MG TABLET PO SCH (22:07)
[2017-07-04] MEDS: HYDROMORPHONE HCL INJ/PF 2 MG/ML AMPULE IV PRN ×3 (00:15→10:44)
[2017-07-04] MEDS: PROPRANOLOL HCL 40 MG TABLET PO SCH ×2 (01:49→09:10)
[2017-07-04] MEDS: AZTREONAM 1.5 GM in DEXTROSE 5%-WATER 100 ML IV SCH ×2 (02:54→10:45)
[2017-07-04] MEDS: BUPROPION HCL 100 MG TABLET PO SCH ×2 (09:08→22:43)
[2017-07-04] MEDS: VALSARTAN 160 MG TABLET PO SCH (09:09)
[2017-07-04] MEDS: ENOXAPARIN SODIUM INJ 40 MG/0.4 ML DISP.SYRIN SUBCUT SCH (09:09)
[2017-07-04] MEDS: HYDROCHLOROTHIAZIDE 12.5 MG CAPSULE PO SCH (09:09)
[2017-07-04 09:31] LABS: ABSOLUTE EOSINOPHILS # (AUTO) 0.5 10^3/uL (0.0-0.6); ABSOLUTE LYMPHOCYTES (AUTO) 1.3 10^3/uL (0.5-4.7); ABSOLUTE MONOCYTES (AUTO) 0.7 10^3/uL (0.1-1.4); ABSOLUTE NEUT (AUTO) 4.8 10^3/uL (1.7-8.2); BASOPHILS % (AUTO) 0.6 % (0-2); EOSINOPHILS % (AUTO) 6.8 % (0-6); HEMATOCRIT 47.3 % (36.0-47.0); HEMOGLOBIN 16.2 g/dL (12.0-15.5); LYMPHOCYTES % (AUTO) 17.3 % (13-45); MEAN CORPUSCULAR HEMOGLOBIN 33.5 pg (27.0-33.4); MEAN CORPUSCULAR HGB CONC 34.3 g/dL (32.0-36.0); MEAN CORPUSCULAR VOLUME 98 fl (80-97); MONOCYTES % (AUTO) 9.7 % (3-13); PLATELET COUNT 302 10^3/uL (150-450); RED BLOOD COUNT 4.84 10^6/uL (3.72-5.28); RED CELL DISTRIBUTION WIDTH 12.6 % (11.5-14.0); SEGMENTED NEUTROPHILS % (AUTO) 65.6 % (42-78); TOTAL CELLS COUNTED % (AUTO) 100 %; WHITE BLOOD COUNT 7.2 10^3/uL (4.0-10.5)
[2017-07-04 09:46] LABS: ALANINE AMINOTRANSFERASE 37 U/L (9-52); ALBUMIN 3.2 g/dL (3.5-5.0); ALKALINE PHOSPHATASE 69 U/L (38-126); ANION GAP 7 (5-19); ASPARTATE AMINO TRANSFERASE 38 U/L (14-36); BILIRUBIN,DIRECT 0.4 mg/dL (0.0-0.4); BILIRUBIN,TOTAL 0.6 mg/dL (0.2-1.3); BLOOD UREA NITROGEN 7 mg/dL (7-20); CALCIUM 8.9 mg/dL (8.4-10.2); CARBON DIOXIDE 28 mmol/L (22-30); CHLORIDE 95 mmol/L (98-107); GLUCOSE 124 mg/dL (75-110); SODIUM 129.7 mmol/L (137-145); TOTAL PROTEIN 6.1 g/dL (6.3-8.2)
[2017-07-04 09:51] LABS: POTASSIUM 2.8 mmol/L (3.6-5.0)
--- NOTE | 2017-07-04 10:40 | RADIOLOGY REPORT (SQ) ---
EXAM DESCRIPTION: CT HEAD WITHOUT COMPLETED DATE/TIME: 07/04/2017 10:31 am REASON FOR STUDY: abn mental status COMPARISON: 11/30/2013 TECHNIQUE: Axial images acquired through the brain without intravenous contrast. Images reviewed wi th bone, brain and subdural windows. Images stored on PACS. All CT scanners at this facility use dose modulation, iterative reconstruction, and/or weight based d osing when appropriate to reduce radiation dose to as low as reasonably achievable (ALARA). [facility]: Dose Right [facility]: CareDose [facility]: Dose Right [facility]: Teradose 4D [facility]: Smart Flit RADIATION DOSE: CT Rad equipment meets quality standard of care and radiation dose reduction techniq ues were employed. CTDIvol: 64.6 mGy. DLP: 1163 mGy-cm. mGy. LIMITATIONS: None. FINDINGS: VENTRICLES: Prominent ventricles secondary to involutional atrophy. CEREBRUM: No masses. No hemorrhage. No midline shift. No evidence for acute infarction. Normal gra y/white matter differentiation. No areas of low density in the white matter. CEREBELLUM: No masses. No hemorrhage. No alteration of density. No evidence for acute infarction. EXTRAAXIAL SPACES: No fluid collections. No masses. ORBITS AND GLOBE: No intra- or extraconal masses. Normal contour of globe without masses. CALVARIUM: No fracture PARANASAL SINUSES: No fluid or mucosal thickening. SOFT TISSUES: No mass or hematoma. OTHER: No other significant finding. IMPRESSION: No intracranial pathology. No interval change since the previous study. EVIDENCE OF ACUTE STROKE: NO. COMMENT: Quality ID # 436: Final reports with documentation of one or more dose reduction techniques (e.g., Automated exposure control, adjustment of the mA and/or kV according to patient size, use of iterative reconstruction technique) TECHNICAL DOCUMENTATION: JOB ID: [id number] [employer]- All Rights Reserved Reading location - IP/workstation name: [email or web address]
--- NOTE | 2017-07-04 10:54 | RADIOLOGY REPORT (SQ) ---
EXAM DESCRIPTION: CT ABD/PELVIS NO ORAL OR IV COMPLETED DATE/TIME: 07/04/2017 10:31 am REASON FOR STUDY: lung mass abn mental status COMPARISON: CT brain same date CT chest 07/02/2017 CT abdomen pelvis 06/16/2016 TECHNIQUE: CT scan of the abdomen and pelvis performed without intravenous or oral contrast. Images reviewed with lung, soft tissue, and bone windows. Reconstructed coronal and sagittal MPR images revi ewed. All images stored on PACS. All CT scanners at this facility use dose modulation, iterative reconstruction, and/or weight based d osing when appropriate to reduce radiation dose to as low as reasonably achievable (ALARA). [facility]: Dose Right [facility]: CareDose [facility]: Dose Right [facility]: Teradose 4D [facility]: Smart [employer] RADIATION DOSE: CT Rad equipment meets quality standard of care and radiation dose reduction techniq ues were employed. CTDIvol: 14.4 mGy. DLP: 795 mGy-cm.mGy. LIMITATIONS: None. FINDINGS: LOWER CHEST: Right large bore chest tube in the right pleural space. Minimal right basila r atelectasis. Trace residual right pleural fluid. NON-CONTRASTED LIVER, SPLEEN, ADRENALS: Evaluation limited by lack of IV contrast. No identified sign ificant masses. PANCREAS: Atrophy, spotty calcifications likely from old remote prior pancreatitis. GALLBLADDER: Surgically absent RIGHT KIDNEY AND URETER: No suspicious masses. Assessment limited by lack of IV contrast. No signif icant calcifications. No hydronephrosis or hydroureter. LEFT KIDNEY AND URETER: No suspicious masses. Assessment limited by lack of IV contrast. No signifi cant calcifications. No hydronephrosis or hydroureter. AORTA AND RETROPERITONEUM: At the aortic hiatus, the distal thoracic/ upper abdominal aorta measures 3.6 cm in greatest transverse diameter, similar compared to CT abdomen pelvis 06/16/2016. The infraren al abdominal aorta measures 3.1 cm in greatest diameter, similar compared to 06/16/2016. BOWEL AND PERITONEAL CAVITY: No oral contrast. No gross bowel obstruction. Moderate stool in the ri ght colon. APPENDIX: Not identified. No right lower quadrant inflammatory change PELVIS, BLADDER, AND ABDOMINAL WALL:No abnormal masses. No free fluid. Bladder decompressed by a Fole y catheter. Normal size female pelvic organs. BONES: No lytic or blastic lesions OTHER: No other significant finding. IMPRESSION: No CT evidence of metastatic disease to the abdomen or pelvis. No acute findings. COMMENT: Quality ID # [id number]: Final reports with documentation of one or more dose reduction techniques (e.g., Automated exposure control, adjustment of the mA and/or kV according to patient size, use of iterative reconstruction technique) TECHNICAL DOCUMENTATION: JOB ID: [id number] [employer]- All Rights Reserved Reading location - IP/workstation name: [email or web address]
[2017-07-04] MEDS: POTASSIUM CHLORIDE 10 MEQ TABLET.SA PO SCH ×3 (13:16→22:43)
[2017-07-04] MEDS ORDERED: HYDROMORPHONE HCL INJ 2 MG/ML 20 ML MDV IV SCH (14:00)
--- NOTE | 2017-07-04 14:49 | PDOC CONSULTATION ---
Consultation Consult Date: 07/03/17 Attending physician:: NOLAN KIRKPATRICK Consult reason:: Right lung mass History of Present Illness Admission Date/PCP: 06/29/17 04:26 NOLAN KIRKPATRICK MD History of Present Illness: MARSHA DUMAS is a 71 year old female, She came to the emergency room Her chest x-ray showed a large right pleural effusion associated with infiltrates. She also had elevated lactic acid level and hyponatremia. This morning she had thoracentesis over 1600 cc of pleural fluid was collected, analysis is pending, the LDH and total protein level is pending to determine if this is exudative versus transudative but based on the appearance of the pleural fluid is very suspicious for exudative pleural effusion. She also have elevated serum troponin most likely due to demand ischemia secondary to tachycardia and sepsis. Patient admits criteria for sepsis due to severe pneumonia.I spoke to patient about the duration of her sickness, she told me that she has been feeling unwell for the last couple of days, she has a scheduled appointment on Monday with us in the office but she could not wait for the appointment because she felt very well earlier this morning and she came to the emergency room for evaluation.She is currently confused restrained and able to answer additional questions Past Medical History Cardiac Medical History: Reports: Hypertension Pulmonary Medical History: Denies: Tuberculosis GI Medical History: Reports: Gastroesophageal Reflux Disease Psychiatric Medical History: Reports: Depression Social History Information Source: [facility] Records Lives with: Family Smoking Status: Unknown if Ever Smoked Frequency of Alcohol Use: None Hx Recreational Drug Use: No Drugs: None Hx Prescription Drug Abuse: No - Advance Directive Resuscitation Status: Full Code Family History Parental Family History Reviewed: No Children Family History Reviewed: No Sibling(s) Family History Reviewed.: No Medication/Allergy Home Medications: Bupropion HCl [Wellbutrin Xl 300mg 24hr Tablet] 1 tab PO DAILY 06/29/17 Propranolol HCl [Inderal La] 160 mg PO DAILY 06/29/17 Valsartan/Hydrochlorothiazide [Valsartan-Hctz 320-25 mg Tab] 0.5 each PO DAILY 06/29/17 Allergies/Adverse Reactions: Penicillins Allergy (Intermediate, Verified 11/30/13 13:53) alendronate sodium [From Fosamax] Allergy (Unknown, Verified 11/30/13 13:53) rosuvastatin calcium [From Crestor] Allergy (Unknown, Verified 11/30/13 13:53) Guacamole Allergy (Severe, Uncoded 11/30/13 13:53) Swelling of Throat Review of Systems ROS unobtainable: Due to mental status Physical Exam Vital Signs: Temp Pulse Resp BP Pulse Ox 98 F 102 H 16 106/69 97 07/03/17 07:20 07/03/17 07:41 07/03/17 07:41 07/03/17 07:41 07/03/17 08:36 Intake & Output 07/02/17 07/03/17 07/04/17 06:59 06:59 06:59 Intake Total 2305 2000 0 Output Total 1500 7900 300 Balance 805 -5900 -300 Weight 56.7 kg 53.9 kg General appearance: PRESENT: no acute distress, disheveled, well-developed Head exam: PRESENT: atraumatic, normocephalic Eye exam: PRESENT: conjunctiva pale Mouth exam: PRESENT: dry mucosa, neck supple, tongue midline Respiratory exam: PRESENT: decreased breath sounds, prolonged expiratory phas, rales, rhonchi, unlabored. ABSENT: retraction Cardiovascular exam: PRESENT: RRR, +S1, +S2 GI/Abdominal exam: PRESENT: diminished bowel sounds, soft Extremities exam: ABSENT: calf tenderness, clubbing Musculoskeletal exam: ABSENT: deformity, dislocation Neurological exam: PRESENT: oriented to person. ABSENT: oriented to place, oriented to time, oriented to situation Skin exam: PRESENT: dry, warm Results Laboratory Results: 07/03/17 07:58 07/03/17 07:58 07/02/17 07/02/17 07/03/17 17:31 20:10 07:58 WBC 9.2 RBC 4.39 Hgb 14.8 Hct 43.0 MCV 98 H MCH 33.7 H MCHC 34.4 RDW 12.5 Plt Count 298 Seg Neutrophils % 75.1 Lymphocytes % 13.6 Monocytes % 10.4 Eosinophils % 0.5 Basophils % 0.4 Absolute Neutrophils 6.9 Absolute Lymphocytes 1.3 Absolute Monocytes 1.0 Absolute Eosinophils 0.0 Absolute Basophils 0.0 Carbonic Acid HCO3/H2CO3 Ratio ABG pH ABG pCO2 ABG pO2 ABG HCO3 ABG O2 Saturation ABG Base Excess FiO2 Sodium 118.3 L* Potassium 3.6 Chloride 80 L Carbon Dioxide 28 Anion Gap 10 BUN 10 Creatinine 0.56 Est GFR ( Amer) > 60 Est GFR (Non-Af Amer) > 60 Glucose 121 H Calcium 8.5 Total Bilirubin 0.6 AST 29 ALT 34 Alkaline Phosphatase 66 Total Protein 5.6 L Albumin 3.0 L Fluid Type PLEURAL Fluid Source Fluid Color PINK Fluid Appearance TURBID Fluid Viscosity LIQUID Fluid WBC 3390 Fluid RBC 8125 07/03/17 07/03/17 07:58 08:35 WBC RBC Hgb Hct MCV MCH MCHC RDW Plt Count Seg Neutrophils % Lymphocytes % Monocytes % Eosinophils % Basophils % Absolute Neutrophils Absolute Lymphocytes Absolute Monocytes Absolute Eosinophils Absolute Basophils Carbonic Acid 1.24 HCO3/H2CO3 Ratio 19:1 ABG pH 7.38 ABG pCO2 41.2 ABG pO2 67.8 L ABG HCO3 24.0 ABG O2 Saturation 93.3 L ABG Base Excess -1.0 FiO2 28% Sodium 120.1 L* Potassium 3.5 L Chloride 85 L Carbon Dioxide 26 Anion Gap 9 BUN 14 Creatinine 0.80 Est GFR ( Amer) > 60 Est GFR (Non-Af Amer) > 60 Glucose 106 Calcium 8.5 Total Bilirubin AST ALT Alkaline Phosphatase Total Protein Albumin Fluid Type Fluid Source Fluid Color Fluid Appearance Fluid Viscosity Fluid WBC Fluid RBC 06/29/17 10:35 Pleural Fluid - Right Pleural Effusion Gram Stain - Final 06/29/17 10:35 Pleural Fluid - Right Pleural Effusion Body Fluid Culture - Final NO AEROBIC OR ANAEROBIC ORGANISMS RECOVERED 06/29/17 10:35 Pleural Fluid - Right Pleural Effusion Fungal Smear - Final 06/29/17 10:35 Pleural Fluid - Right Pleural Effusion Fungal Smear - Final 06/29/17 06/29/17 06/29/17 13:36 13:36 15:00 Creatine Kinase 154 H 127 CK-MB (CK-2) Cancelled Troponin I Cancelled 06/29/17 15:00 Creatine Kinase CK-MB (CK-2) 11.80 H Troponin I 3.060 Impressions: Thoracentesis Ultrasound 06/29/17 04:03 IMPRESSION: SUCCESSFUL DIAGNOSTIC AND THERAPEUTIC THORACENTESIS USING ULTRASOUND GUIDANCE. Chest CT 07/02/17 00:00 IMPRESSION: 4.6 cm right parahilar mass which occludes the middle lobe and the bronchus intermedius with moderate postobstructive atelectasis. There is bulky adenopathy in the paratracheal and subcarinal stations. Medium sized hydropneumothorax on the right with chest tube in place in the posterior sulcus at the mid thorax level. Chest X-Ray 07/03/17 00:00 IMPRESSION: Large bore right chest tube unchanged. Stable 10 to 20% apical pneumothorax compared to 07/02/2017 Since 07/02/2017 patient has developed consolidation at the right lung base atelectasis versus pneumonia. Right hilar and sub- carinal adenopathy seen on CT chest 07/02/2017 is difficult to visualize by chest film Assessment & Plan - Diagnosis (1) Hilar mass Is this a current diagnosis for this admission?: Yes Plan: ? malignancy (2) Hyponatremia Is this a current diagnosis for this admission?: Yes Plan: unchanged (3) Pleural effusion on right Is this a current diagnosis for this admission?: Yes Plan: Chest tube remains draining moderate amount of fluid
[2017-07-04] MEDS: HYDROMORPHONE HCL INJ/PF 2 MG/ML AMPULE IV SCH ×3 (14:53→22:38)
--- NOTE | 2017-07-04 14:53 | PDOC PROGRESS REPORT ---
Subjective Progress Note for:: 07/04/17 Subjective:: still confused but not as agitated Reason For Visit: PNEUMONIA,SEPSIS Physical Exam Vital Signs: Temp Pulse Resp BP Pulse Ox 97.8 F 81 17 132/63 H 97 07/04/17 07:56 07/04/17 07:56 07/04/17 07:56 07/04/17 07:56 07/04/17 07:56 Intake & Output 07/03/17 07/04/17 07/05/17 06:59 06:59 06:59 Intake Total 2000 2800 Output Total 7900 2560 Balance -5900 240 Weight 53.9 kg 55.8 kg General appearance: PRESENT: no acute distress, disheveled, well-developed Head exam: PRESENT: atraumatic, normocephalic Eye exam: PRESENT: conjunctiva pale. ABSENT: nystagmus, periorbital swelling, scleral icterus Mouth exam: PRESENT: dry mucosa, neck supple, tongue midline Neck exam: ABSENT: carotid bruit, JVD, lymphadenopathy, thyromegaly, tracheal deviation, tracheostomy Respiratory exam: PRESENT: crackles, decreased breath sounds, prolonged expiratory phas, rhonchi, symmetrical, unlabored, wheezes. ABSENT: rales, retraction, stridor Cardiovascular exam: PRESENT: RRR, +S1, +S2 Pulses: PRESENT: normal radial pulses GI/Abdominal exam: PRESENT: diminished bowel sounds, soft Extremities exam: ABSENT: calf tenderness, clubbing Musculoskeletal exam: ABSENT: deformity, dislocation Neurological exam: PRESENT: awake, oriented to person. ABSENT: alert, oriented to time, oriented to situation Skin exam: PRESENT: dry, warm Results Laboratory Results: 07/03/17 18:23 Sodium 121.8 L Potassium 3.3 L Chloride 91 L Carbon Dioxide 24 Anion Gap 7 BUN 11 Creatinine 0.53 Est GFR ( Amer) > 60 Est GFR (Non-Af Amer) > 60 Glucose 101 Calcium 8.5 Total Bilirubin 0.5 AST 33 ALT 34 Alkaline Phosphatase 57 Total Protein 5.1 L Albumin 2.6 L 06/29/17 10:35 Pleural Fluid - Right Pleural Effusion Gram Stain - Final 06/29/17 10:35 Pleural Fluid - Right Pleural Effusion Body Fluid Culture - Final NO AEROBIC OR ANAEROBIC ORGANISMS RECOVERED 06/29/17 10:35 Pleural Fluid - Right Pleural Effusion Fungal Smear - Final 06/29/17 10:35 Pleural Fluid - Right Pleural Effusion Fungal Smear - Final 06/29/17 06/29/17 06/29/17 13:36 13:36 15:00 Creatine Kinase 154 H 127 CK-MB (CK-2) Cancelled Troponin I Cancelled 06/29/17 15:00 Creatine Kinase CK-MB (CK-2) 11.80 H Troponin I 3.060 Impressions: Thoracentesis Ultrasound 06/29/17 04:03 IMPRESSION: SUCCESSFUL DIAGNOSTIC AND THERAPEUTIC THORACENTESIS USING ULTRASOUND GUIDANCE. Chest CT 07/02/17 00:00 IMPRESSION: 4.6 cm right parahilar mass which occludes the middle lobe and the bronchus intermedius with moderate postobstructive atelectasis. There is bulky adenopathy in the paratracheal and subcarinal stations. Medium sized hydropneumothorax on the right with chest tube in place in the posterior sulcus at the mid thorax level. Chest X-Ray 07/03/17 00:00 IMPRESSION: Large bore right chest tube unchanged. Stable 10 to 20% apical pneumothorax compared to 07/02/2017 Since 07/02/2017 patient has developed consolidation at the right lung base atelectasis versus pneumonia. Right hilar and sub- carinal adenopathy seen on CT chest 07/02/2017 is difficult to visualize by chest film Assessment & Plan - Diagnosis (1) Hilar mass Is this a current diagnosis for this admission?: Yes Plan: ? malignancy (2) Hyponatremia Is this a current diagnosis for this admission?: Yes Plan: unchanged (3) Pleural effusion on right Is this a current diagnosis for this admission?: Yes Plan: Chest tube remains draining moderate amount of fluid (4) Encephalopathy Is this a current diagnosis for this admission?: Yes Plan: Less agitated hopefully will be able to get a CT of the head and abdomen
--- NOTE | 2017-07-04 17:53 | PDOC PROGRESS REPORT ---
Subjective Progress Note for:: 07/04/17 Subjective:: Patient was seen by the bedside, she is more alert, oriented to time place and person on like yesterday when she was very confused. I spoke to Dr. Valencia pulmonary, different options was discussed in order to make a tissue diagnosis, Dr. Valencia wants her to be more stable before he does bronchoscopy. Reason For Visit: PNEUMONIA,SEPSIS Physical Exam Vital Signs: Temp Pulse Resp BP Pulse Ox 97.8 F 73 17 132/63 H 95 07/04/17 07:56 07/04/17 14:00 07/04/17 07:56 07/04/17 07:56 07/04/17 16:08 Intake & Output 07/03/17 07/04/17 07/05/17 06:59 06:59 06:59 Intake Total 2000 2800 Output Total 7900 2560 Balance -5900 240 Weight 53.9 kg 55.8 kg General appearance: PRESENT: no acute distress Eye exam: PRESENT: PERRLA Respiratory exam: PRESENT: decreased breath sounds Cardiovascular exam: PRESENT: +S1, +S2 GI/Abdominal exam: PRESENT: soft Neurological exam: PRESENT: alert, oriented to time, oriented to situation Results Laboratory Results: 07/04/17 09:16 07/04/17 09:16 07/02/17 07/02/17 07/03/17 17:31 17:31 18:23 WBC RBC Hgb Hct MCV MCH MCHC RDW Plt Count Seg Neutrophils % Lymphocytes % Monocytes % Eosinophils % Basophils % Absolute Neutrophils Absolute Lymphocytes Absolute Monocytes Absolute Eosinophils Absolute Basophils Sodium 121.8 L Potassium 3.3 L Chloride 91 L Carbon Dioxide 24 Anion Gap 7 BUN 11 Creatinine 0.53 Est GFR ( Amer) > 60 Est GFR (Non-Af Amer) > 60 Glucose 101 Calcium 8.5 Total Bilirubin 0.5 AST 33 ALT 34 Alkaline Phosphatase 57 Total Protein 5.1 L Albumin 2.6 L Fluid Glucose 102 Fluid Total Protein 3.0 Fluid Amylase 65 07/04/17 07/04/17 09:16 09:16 WBC 7.2 RBC 4.84 Hgb 16.2 H Hct 47.3 H MCV 98 H MCH 33.5 H MCHC 34.3 RDW 12.6 Plt Count 302 Seg Neutrophils % 65.6 Lymphocytes % 17.3 Monocytes % 9.7 Eosinophils % 6.8 H Basophils % 0.6 Absolute Neutrophils 4.8 Absolute Lymphocytes 1.3 Absolute Monocytes 0.7 Absolute Eosinophils 0.5 Absolute Basophils 0.0 Sodium 129.7 L Potassium 2.8 L* Chloride 95 L Carbon Dioxide 28 Anion Gap 7 BUN 7 Creatinine 0.54 Est GFR ( Amer) > 60 Est GFR (Non-Af Amer) > 60 Glucose 124 H Calcium 8.9 Total Bilirubin 0.6 AST 38 H ALT 37 Alkaline Phosphatase 69 Total Protein 6.1 L Albumin 3.2 L Fluid Glucose Fluid Total Protein Fluid Amylase 06/29/17 06/29/17 06/29/17 13:36 13:36 15:00 Creatine Kinase 154 H 127 CK-MB (CK-2) Cancelled Troponin I Cancelled 06/29/17 15:00 Creatine Kinase CK-MB (CK-2) 11.80 H Troponin I 3.060 Impressions: Thoracentesis Ultrasound 06/29/17 04:03 IMPRESSION: SUCCESSFUL DIAGNOSTIC AND THERAPEUTIC THORACENTESIS USING ULTRASOUND GUIDANCE. Chest CT 07/02/17 00:00 IMPRESSION: 4.6 cm right parahilar mass which occludes the middle lobe and the bronchus intermedius with moderate postobstructive atelectasis. There is bulky adenopathy in the paratracheal and subcarinal stations. Medium sized hydropneumothorax on the right with chest tube in place in the posterior sulcus at the mid thorax level. Chest X-Ray 07/03/17 00:00 IMPRESSION: Large bore right chest tube unchanged. Stable 10 to 20% apical pneumothorax compared to 07/02/2017 Since 07/02/2017 patient has developed consolidation at the right lung base atelectasis versus pneumonia. Right hilar and sub- carinal adenopathy seen on CT chest 07/02/2017 is difficult to visualize by chest film Abdomen/Pelvis CT 07/04/17 00:00 IMPRESSION: No CT evidence of metastatic disease to the abdomen or pelvis. No acute findings. Head CT 07/04/17 00:00 IMPRESSION: No intracranial pathology. No interval change since the previous study. EVIDENCE OF ACUTE STROKE: NO. Assessment & Plan - Diagnosis (1) Sepsis Qualifiers: Sepsis type: sepsis due to unspecified organism Qualified Code(s): A41.9 - Sepsis, unspecified organism Is this a current diagnosis for this admission?: Yes (2) Pneumonia Qualifiers: Pneumonia type: due to unspecified organism Laterality: right Lung location: middle lobe of lung Qualified Code(s): J18.1 - Lobar pneumonia, unspecified organism Is this a current diagnosis for this admission?: Yes (3) Pleural effusion on right Is this a current diagnosis for this admission?: Yes (4) Elevated troponin Is this a current diagnosis for this admission?: Yes (5) Paroxysmal A-fib Is this a current diagnosis for this admission?: Yes (6) Hyponatremia Is this a current diagnosis for this admission?: Yes (7) Hypomagnesemia Is this a current diagnosis for this admission?: Yes (8) Hypotension Qualifiers: Hypotension type: unspecified hypotension type Qualified Code(s): I95.9 - Hypotension, unspecified Is this a current diagnosis for this admission?: Yes (9) Exudative pleural effusion Is this a current diagnosis for this admission?: Yes (10) Benzodiazepine withdrawal Qualifiers: Complication of substance-induced condition: with delirium Qualified Code(s ): 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
[2017-07-04] MEDS: AZTREONAM IV SCH (18:28)
[2017-07-04] MEDS: NORMAL SALINE IV SCH (18:28)
[2017-07-04] MEDS: LEVOFLOXACIN 750 MG/D5W RTU 750 MG/150 ML RTUPB IV SCH (22:42)
[2017-07-04] MEDS: ZOLPIDEM TARTRATE 5 MG TABLET PO SCH (22:43)
--- NOTE | 2017-07-04 23:37 | PDOC PROGRESS REPORT ---
Subjective Progress Note for:: 07/04/17 Subjective:: left chest/chest tube pains Reason For Visit: PNEUMONIA,SEPSIS Physical Exam Vital Signs: Temp Pulse Resp BP Pulse Ox 98.0 F 78 12 134/65 H 97 07/04/17 20:10 07/04/17 20:10 07/04/17 20:10 07/04/17 20:10 07/04/17 20:10 Intake & Output 07/03/17 07/04/17 07/05/17 06:59 06:59 06:59 Intake Total 2000 2800 750 Output Total 7900 2560 2990 Balance -5900 240 -2240 Weight 53.9 kg 55.8 kg Exam: More alert and oriented with improvement in Serum Sodium. Chest tube still drained about 350 ccs chylous fluid. Results Laboratory Results: 07/04/17 09:16 07/04/17 09:16 07/02/17 07/02/17 07/04/17 17:31 17:31 09:16 WBC 7.2 RBC 4.84 Hgb 16.2 H Hct 47.3 H MCV 98 H MCH 33.5 H MCHC 34.3 RDW 12.6 Plt Count 302 Seg Neutrophils % 65.6 Lymphocytes % 17.3 Monocytes % 9.7 Eosinophils % 6.8 H Basophils % 0.6 Absolute Neutrophils 4.8 Absolute Lymphocytes 1.3 Absolute Monocytes 0.7 Absolute Eosinophils 0.5 Absolute Basophils 0.0 Sodium Potassium Chloride Carbon Dioxide Anion Gap BUN Creatinine Est GFR ( Amer) Est GFR (Non-Af Amer) Glucose Calcium Total Bilirubin AST ALT Alkaline Phosphatase Total Protein Albumin Fluid Glucose 102 Fluid Total Protein 3.0 Fluid Amylase 65 07/04/17 09:16 WBC RBC Hgb Hct MCV MCH MCHC RDW Plt Count Seg Neutrophils % Lymphocytes % Monocytes % Eosinophils % Basophils % Absolute Neutrophils Absolute Lymphocytes Absolute Monocytes Absolute Eosinophils Absolute Basophils Sodium 129.7 L Potassium 2.8 L* Chloride 95 L Carbon Dioxide 28 Anion Gap 7 BUN 7 Creatinine 0.54 Est GFR ( Amer) > 60 Est GFR (Non-Af Amer) > 60 Glucose 124 H Calcium 8.9 Total Bilirubin 0.6 AST 38 H ALT 37 Alkaline Phosphatase 69 Total Protein 6.1 L Albumin 3.2 L Fluid Glucose Fluid Total Protein Fluid Amylase 06/29/17 06/29/17 06/29/17 13:36 13:36 15:00 Creatine Kinase 154 H 127 CK-MB (CK-2) Cancelled Troponin I Cancelled 06/29/17 15:00 Creatine Kinase CK-MB (CK-2) 11.80 H Troponin I 3.060 Impressions: Thoracentesis Ultrasound 06/29/17 04:03 IMPRESSION: SUCCESSFUL DIAGNOSTIC AND THERAPEUTIC THORACENTESIS USING ULTRASOUND GUIDANCE. Chest CT 07/02/17 00:00 IMPRESSION: 4.6 cm right parahilar mass which occludes the middle lobe and the bronchus intermedius with moderate postobstructive atelectasis. There is bulky adenopathy in the paratracheal and subcarinal stations. Medium sized hydropneumothorax on the right with chest tube in place in the posterior sulcus at the mid thorax level. Chest X-Ray 07/03/17 00:00 IMPRESSION: Large bore right chest tube unchanged. Stable 10 to 20% apical pneumothorax compared to 07/02/2017 Since 07/02/2017 patient has developed consolidation at the right lung base atelectasis versus pneumonia. Right hilar and sub- carinal adenopathy seen on CT chest 07/02/2017 is difficult to visualize by chest film Abdomen/Pelvis CT 07/04/17 00:00 IMPRESSION: No CT evidence of metastatic disease to the abdomen or pelvis. No acute findings. Head CT 07/04/17 00:00 IMPRESSION: No intracranial pathology. No interval change since the previous study. EVIDENCE OF ACUTE STROKE: NO. Assessment & Plan - Diagnosis (1) right hilar mass Is this a current diagnosis for this admission?: Yes - Time Time Spent with patient: 15-24 minutes - Inpatient Certification Medical Necessity: Need For IV Fluids, Need for Pain Control, Need for IV Antibiotics - Plan Summary Plan Summary: Continue Left chest tube Await Bronchoscopy by Dr Valencia D/W pts sons about further plans. Pt still likely needed to be transfered to tertiary care facility. They understand.D/W PMD
[2017-07-05] MEDS: PROPRANOLOL HCL 40 MG TABLET PO SCH ×3 (01:34→21:42)
[2017-07-05] MEDS: AZTREONAM IV SCH ×3 (02:57→17:37)
[2017-07-05] MEDS: NORMAL SALINE IV SCH ×3 (02:57→17:37)
[2017-07-05] MEDS: HYDROMORPHONE HCL INJ/PF 2 MG/ML AMPULE IV SCH ×6 (02:59→21:41)
[2017-07-05 04:53] LABS: ABSOLUTE EOSINOPHILS # (AUTO) 0.7 10^3/uL (0.0-0.6); ABSOLUTE LYMPHOCYTES (AUTO) 1.5 10^3/uL (0.5-4.7); ABSOLUTE MONOCYTES (AUTO) 1.2 10^3/uL (0.1-1.4); ABSOLUTE NEUT (AUTO) 4.4 10^3/uL (1.7-8.2); BASOPHILS % (AUTO) 0.6 % (0-2); HEMATOCRIT 44.8 % (36.0-47.0); HEMOGLOBIN 15.3 g/dL (12.0-15.5); LYMPHOCYTES % (AUTO) 19.5 % (13-45); MEAN CORPUSCULAR HEMOGLOBIN 33.6 pg (27.0-33.4); MEAN CORPUSCULAR HGB CONC 34.2 g/dL (32.0-36.0); MEAN CORPUSCULAR VOLUME 98 fl (80-97); MONOCYTES % (AUTO) 15.2 % (3-13); PLATELET COUNT 279 10^3/uL (150-450); RED BLOOD COUNT 4.55 10^6/uL (3.72-5.28); RED CELL DISTRIBUTION WIDTH 12.6 % (11.5-14.0); SEGMENTED NEUTROPHILS % (AUTO) 55.7 % (42-78); TOTAL CELLS COUNTED % (AUTO) 100 %; WHITE BLOOD COUNT 7.9 10^3/uL (4.0-10.5)
[2017-07-05 05:32] LABS: ALANINE AMINOTRANSFERASE 39 U/L (9-52); ALBUMIN 2.8 g/dL (3.5-5.0); ALKALINE PHOSPHATASE 57 U/L (38-126); ASPARTATE AMINO TRANSFERASE 47 U/L (14-36); BILIRUBIN,DIRECT 0.4 mg/dL (0.0-0.4); BILIRUBIN,TOTAL 0.5 mg/dL (0.2-1.3); BLOOD UREA NITROGEN 7 mg/dL (7-20); CALCIUM 8.4 mg/dL (8.4-10.2); CHLORIDE 95 mmol/L (98-107); GLUCOSE 99 mg/dL (75-110); TOTAL PROTEIN 5.4 g/dL (6.3-8.2)
[2017-07-05 05:41] LABS: ANION GAP 3 (5-19); CARBON DIOXIDE 30 mmol/L (22-30); POTASSIUM 4.3 mmol/L (3.6-5.0); SODIUM 128.4 mmol/L (137-145)
[2017-07-05 06:38] LABS: ARTERIAL BLOOD BASE EXCESS 3.6 mmol/L; ARTERIAL BLOOD H2CO3 1.13 mmol/L (1.05-1.35); ARTERIAL BLOOD HCO3 27.1 mmol/L (20-26); ARTERIAL BLOOD O2 SATURATION 91.2 % (94-98); ARTERIAL BLOOD PCO2 37.6 mmHg (35-45); ARTERIAL BLOOD PH 7.48 (7.35-7.45); ARTERIAL BLOOD PO2 56.1 mmHg (80-100); ARTERIAL BLOOD TOTAL CO2 28.3 mmol/L (21-25)
[2017-07-05 06:40] LABS: ARTERIAL BLOOD FIO2 ROOM AIR
[2017-07-05 07:59] LABS: ABSOLUTE BASOPHILS # (AUTO) 0.1 10^3/uL (0.0-0.2); ABSOLUTE EOSINOPHILS # (AUTO) 0.7 10^3/uL (0.0-0.6); ABSOLUTE LYMPHOCYTES (AUTO) 1.4 10^3/uL (0.5-4.7); ABSOLUTE NEUT (AUTO) 4.3 10^3/uL (1.7-8.2); BASOPHILS % (AUTO) 0.7 % (0-2); EOSINOPHILS % (AUTO) 9.4 % (0-6); HEMATOCRIT 45.3 % (36.0-47.0); HEMOGLOBIN 15.6 g/dL (12.0-15.5); LYMPHOCYTES % (AUTO) 18.8 % (13-45); MEAN CORPUSCULAR HEMOGLOBIN 34.3 pg (27.0-33.4); MEAN CORPUSCULAR HGB CONC 34.4 g/dL (32.0-36.0); MEAN CORPUSCULAR VOLUME 100 fl (80-97); MONOCYTES % (AUTO) 13.3 % (3-13); PLATELET COUNT 327 10^3/uL (150-450); RED BLOOD COUNT 4.55 10^6/uL (3.72-5.28); RED CELL DISTRIBUTION WIDTH 12.5 % (11.5-14.0); SEGMENTED NEUTROPHILS % (AUTO) 57.8 % (42-78); TOTAL CELLS COUNTED % (AUTO) 100 %; WHITE BLOOD COUNT 7.5 10^3/uL (4.0-10.5)
--- NOTE | 2017-07-05 08:25 | RADIOLOGY REPORT (SQ) ---
EXAM DESCRIPTION: CHEST SINGLE VIEW COMPLETED DATE/TIME: 07/05/2017 8:16 am REASON FOR STUDY: chest tube in place COMPARISON: Chest films 07/02/2017, 07/03/2014 CT chest 07/02/2017 EXAM PARAMETERS: NUMBER OF VIEWS: One view. TECHNIQUE: Single frontal radiographic view of the chest acquired. RADIATION DOSE: NA LIMITATIONS: None. FINDINGS: LUNGS AND PLEURA: Large caliber right lower chest tube is unchanged. There is a persistent right apical 10 to 20% pneumothorax unchanged from 07/03/2017 and 07/02/2017 1652 hours. There is a trace basilar pneumothorax adjacent to the chest tube. Bandlike consolidation in the righ t lower lobe is present just above the hemidiaphragm. There is a mass of the right hilum about 4 cm in size, similar compared to CT chest 07/02/2017 Left hemithorax unremarkable. Of MEDIASTINUM AND HILAR STRUCTURES: No masses. Contour normal. HEART AND VASCULAR STRUCTURES: Heart normal in size. Normal vasculature. BONES: No acute findings. HARDWARE: Right chest tube. Right upper quadrant clips post cholecystectomy OTHER: No other significant finding. IMPRESSION: Unchanged right chest tube. Unchanged 10 to 20% right apical pneumothorax Persistent right basilar bandlike consolidation, unchanged right hilar mass TECHNICAL DOCUMENTATION: JOB ID: [id number] [employer]- All Rights Reserved Reading location - IP/workstation name: [email or web address]
[2017-07-05 09:00] LABS: ALANINE AMINOTRANSFERASE 37 U/L (9-52); ALBUMIN 2.7 g/dL (3.5-5.0); ALKALINE PHOSPHATASE 59 U/L (38-126); ANION GAP 5 (5-19); ASPARTATE AMINO TRANSFERASE 27 U/L (14-36); BILIRUBIN,DIRECT 0.4 mg/dL (0.0-0.4); BILIRUBIN,TOTAL 0.5 mg/dL (0.2-1.3); BLOOD UREA NITROGEN 8 mg/dL (7-20); CALCIUM 8.9 mg/dL (8.4-10.2); CARBON DIOXIDE 29 mmol/L (22-30); CHLORIDE 94 mmol/L (98-107); GLUCOSE 92 mg/dL (75-110); POTASSIUM 4.8 mmol/L (3.6-5.0); TOTAL PROTEIN 5.2 g/dL (6.3-8.2)
[2017-07-05] MEDS ORDERED: DEXTROSE 40% GEL 15 GM TUBE PO PRN ×2 (09:40)
[2017-07-05] MEDS ORDERED: DEXTROSE 50%-WATER 25 GM/50 ML DISP.SYRIN IV PRN ×2 (09:40)
[2017-07-05] MEDS ORDERED: GLUCAGON,HUMAN RECOMB 1 MG INJ SUBCUT PRN (09:40)
[2017-07-05] MEDS: BUPROPION HCL 100 MG TABLET PO SCH ×2 (09:47→21:41)
[2017-07-05] MEDS: HYDROCHLOROTHIAZIDE 12.5 MG CAPSULE PO SCH (09:48)
[2017-07-05] MEDS: VALSARTAN 160 MG TABLET PO SCH (09:48)
[2017-07-05] MEDS: ENOXAPARIN SODIUM INJ 40 MG/0.4 ML DISP.SYRIN SUBCUT SCH (10:00)
--- NOTE | 2017-07-05 11:36 | PDOC PROGRESS REPORT ---
Subjective Progress Note for:: 07/05/17 Subjective:: remaining calm Reason For Visit: PNEUMONIA,SEPSIS Physical Exam Vital Signs: Temp Pulse Resp BP Pulse Ox 97.5 F 51 L 16 121/72 95 07/05/17 09:13 07/05/17 09:13 07/05/17 09:13 07/05/17 09:13 07/05/17 09:13 Intake & Output 07/04/17 07/05/17 07/06/17 06:59 06:59 06:59 Intake Total 2800 1600 Output Total 2560 3475 350 Balance 240 -1875 -350 Weight 55.8 kg 55.1 kg General appearance: PRESENT: no acute distress, cooperative, disheveled, thin Head exam: PRESENT: atraumatic, normocephalic Eye exam: PRESENT: conjunctiva pale, EOMI. ABSENT: nystagmus, periorbital swelling, scleral icterus Mouth exam: PRESENT: dry mucosa, neck supple, tongue midline Neck exam: ABSENT: carotid bruit, JVD, lymphadenopathy, thyromegaly, tracheal deviation, tracheostomy Respiratory exam: PRESENT: decreased breath sounds, prolonged expiratory phas, rales, rhonchi, symmetrical, unlabored, wheezes. ABSENT: retraction, stridor, tachypnea Cardiovascular exam: PRESENT: RRR, +S1, +S2 Pulses: PRESENT: normal radial pulses GI/Abdominal exam: PRESENT: diminished bowel sounds, soft Extremities exam: ABSENT: clubbing, joint swelling Musculoskeletal exam: ABSENT: deformity, dislocation Neurological exam: PRESENT: awake Psychiatric exam: PRESENT: flat affect Skin exam: PRESENT: dry, warm Results Laboratory Results: 07/05/17 07:06 07/05/17 07:06 07/05/17 07/05/17 07/05/17 04:09 04:09 06:20 WBC 7.9 RBC 4.55 Hgb 15.3 Hct 44.8 MCV 98 H MCH 33.6 H MCHC 34.2 RDW 12.6 Plt Count 279 Seg Neutrophils % 55.7 Lymphocytes % 19.5 Monocytes % 15.2 H Eosinophils % 9.0 H Basophils % 0.6 Absolute Neutrophils 4.4 Absolute Lymphocytes 1.5 Absolute Monocytes 1.2 Absolute Eosinophils 0.7 H Absolute Basophils 0.0 Carbonic Acid 1.13 HCO3/H2CO3 Ratio 23:1 ABG pH 7.48 H ABG pCO2 37.6 ABG pO2 56.1 L ABG HCO3 27.1 H ABG O2 Saturation 91.2 L ABG Base Excess 3.6 FiO2 ROOM AIR Sodium 128.4 L Potassium 4.3 D Chloride 95 L Carbon Dioxide 30 Anion Gap 3 L BUN 7 Creatinine 0.51 L Est GFR ( Amer) > 60 Est GFR (Non-Af Amer) > 60 Glucose 99 Calcium 8.4 Magnesium 1.7 Total Bilirubin 0.5 AST 47 H ALT 39 Alkaline Phosphatase 57 Total Protein 5.4 L Albumin 2.8 L 07/05/17 07/05/17 07:06 07:06 WBC 7.5 RBC 4.55 Hgb 15.6 H Hct 45.3 MCV 100 H MCH 34.3 H MCHC 34.4 RDW 12.5 Plt Count 327 Seg Neutrophils % 57.8 Lymphocytes % 18.8 Monocytes % 13.3 H Eosinophils % 9.4 H Basophils % 0.7 Absolute Neutrophils 4.3 Absolute Lymphocytes 1.4 Absolute Monocytes 1.0 Absolute Eosinophils 0.7 H Absolute Basophils 0.1 Carbonic Acid HCO3/H2CO3 Ratio ABG pH ABG pCO2 ABG pO2 ABG HCO3 ABG O2 Saturation ABG Base Excess FiO2 Sodium 128.0 L Potassium 4.8 Chloride 94 L Carbon Dioxide 29 Anion Gap 5 BUN 8 Creatinine 0.53 Est GFR ( Amer) > 60 Est GFR (Non-Af Amer) > 60 Glucose 92 Calcium 8.9 Magnesium Total Bilirubin 0.5 AST 27 ALT 37 Alkaline Phosphatase 59 Total Protein 5.2 L Albumin 2.7 L 06/29/17 06/29/17 06/29/17 13:36 13:36 15:00 Creatine Kinase 154 H 127 CK-MB (CK-2) Cancelled Troponin I Cancelled 06/29/17 15:00 Creatine Kinase CK-MB (CK-2) 11.80 H Troponin I 3.060 Impressions: Thoracentesis Ultrasound 06/29/17 04:03 IMPRESSION: SUCCESSFUL DIAGNOSTIC AND THERAPEUTIC THORACENTESIS USING ULTRASOUND GUIDANCE. Chest CT 07/02/17 00:00 IMPRESSION: 4.6 cm right parahilar mass which occludes the middle lobe and the bronchus intermedius with moderate postobstructive atelectasis. There is bulky adenopathy in the paratracheal and subcarinal stations. Medium sized hydropneumothorax on the right with chest tube in place in the posterior sulcus at the mid thorax level. Abdomen/Pelvis CT 07/04/17 00:00 IMPRESSION: No CT evidence of metastatic disease to the abdomen or pelvis. No acute findings. Head CT 07/04/17 00:00 IMPRESSION: No intracranial pathology. No interval change since the previous study. EVIDENCE OF ACUTE STROKE: NO. Chest X-Ray 07/05/17 07:00 IMPRESSION: Unchanged right chest tube. Unchanged 10 to 20% right apical pneumothorax Persistent right basilar bandlike consolidation, unchanged right hilar mass Assessment & Plan - Diagnosis (1) Hilar mass Is this a current diagnosis for this admission?: Yes Plan: ? malignancy (2) Hyponatremia Is this a current diagnosis for this admission?: Yes Plan: unchanged (3) Pleural effusion on right Is this a current diagnosis for this admission?: Yes Plan: Chest tube remains draining moderate amount of fluid (4) Encephalopathy Is this a current diagnosis for this admission?: Yes Plan: Less agitated hopefully will be able to get a CT of the head and abdomen
--- NOTE | 2017-07-05 18:00 | PDOC PROGRESS REPORT ---
Subjective Progress Note for:: 07/05/17 Subjective:: Patient is seen by the bedside, I spoke to Dr. Annie cerna, he spoke to CT surgeon in [place], I attempted getting patient transfer to [place] but there is no bed available. Reason For Visit: PNEUMONIA,SEPSIS Physical Exam Vital Signs: Temp Pulse Resp BP Pulse Ox 98.2 F 74 13 122/73 95 07/05/17 16:47 07/05/17 16:47 07/05/17 16:47 07/05/17 16:47 07/05/17 16:47 Intake & Output 07/04/17 07/05/17 07/06/17 06:59 06:59 06:59 Intake Total 2800 1600 250 Output Total 2560 3475 650 Balance 240 -3885 -400 Weight 55.8 kg 55.1 kg General appearance: PRESENT: no acute distress Eye exam: PRESENT: PERRLA Respiratory exam: PRESENT: decreased breath sounds Cardiovascular exam: PRESENT: +S1, +S2 GI/Abdominal exam: PRESENT: soft Neurological exam: PRESENT: alert Results Laboratory Results: 07/05/17 07:06 07/05/17 07:06 07/05/17 07/05/17 07/05/17 04:09 04:09 06:20 WBC 7.9 RBC 4.55 Hgb 15.3 Hct 44.8 MCV 98 H MCH 33.6 H MCHC 34.2 RDW 12.6 Plt Count 279 Seg Neutrophils % 55.7 Lymphocytes % 19.5 Monocytes % 15.2 H Eosinophils % 9.0 H Basophils % 0.6 Absolute Neutrophils 4.4 Absolute Lymphocytes 1.5 Absolute Monocytes 1.2 Absolute Eosinophils 0.7 H Absolute Basophils 0.0 Carbonic Acid 1.13 HCO3/H2CO3 Ratio 23:1 ABG pH 7.48 H ABG pCO2 37.6 ABG pO2 56.1 L ABG HCO3 27.1 H ABG O2 Saturation 91.2 L ABG Base Excess 3.6 FiO2 ROOM AIR Sodium 128.4 L Potassium 4.3 D Chloride 95 L Carbon Dioxide 30 Anion Gap 3 L BUN 7 Creatinine 0.51 L Est GFR ( Amer) > 60 Est GFR (Non-Af Amer) > 60 Glucose 99 Calcium 8.4 Magnesium 1.7 Total Bilirubin 0.5 AST 47 H ALT 39 Alkaline Phosphatase 57 Total Protein 5.4 L Albumin 2.8 L 07/05/17 07/05/17 07:06 07:06 WBC 7.5 RBC 4.55 Hgb 15.6 H Hct 45.3 MCV 100 H MCH 34.3 H MCHC 34.4 RDW 12.5 Plt Count 327 Seg Neutrophils % 57.8 Lymphocytes % 18.8 Monocytes % 13.3 H Eosinophils % 9.4 H Basophils % 0.7 Absolute Neutrophils 4.3 Absolute Lymphocytes 1.4 Absolute Monocytes 1.0 Absolute Eosinophils 0.7 H Absolute Basophils 0.1 Carbonic Acid HCO3/H2CO3 Ratio ABG pH ABG pCO2 ABG pO2 ABG HCO3 ABG O2 Saturation ABG Base Excess FiO2 Sodium 128.0 L Potassium 4.8 Chloride 94 L Carbon Dioxide 29 Anion Gap 5 BUN 8 Creatinine 0.53 Est GFR ( Amer) > 60 Est GFR (Non-Af Amer) > 60 Glucose 92 Calcium 8.9 Magnesium Total Bilirubin 0.5 AST 27 ALT 37 Alkaline Phosphatase 59 Total Protein 5.2 L Albumin 2.7 L 06/29/17 06/29/17 06/29/17 13:36 13:36 15:00 Creatine Kinase 154 H 127 CK-MB (CK-2) Cancelled Troponin I Cancelled 06/29/17 15:00 Creatine Kinase CK-MB (CK-2) 11.80 H Troponin I 3.060 Impressions: Thoracentesis Ultrasound 06/29/17 04:03 IMPRESSION: SUCCESSFUL DIAGNOSTIC AND THERAPEUTIC THORACENTESIS USING ULTRASOUND GUIDANCE. Chest CT 07/02/17 00:00 IMPRESSION: 4.6 cm right parahilar mass which occludes the middle lobe and the bronchus intermedius with moderate postobstructive atelectasis. There is bulky adenopathy in the paratracheal and subcarinal stations. Medium sized hydropneumothorax on the right with chest tube in place in the posterior sulcus at the mid thorax level. Abdomen/Pelvis CT 07/04/17 00:00 IMPRESSION: No CT evidence of metastatic disease to the abdomen or pelvis. No acute findings. Head CT 07/04/17 00:00 IMPRESSION: No intracranial pathology. No interval change since the previous study. EVIDENCE OF ACUTE STROKE: NO. Chest X-Ray 07/05/17 07:00 IMPRESSION: Unchanged right chest tube. Unchanged 10 to 20% right apical pneumothorax Persistent right basilar bandlike consolidation, unchanged right hilar mass Assessment & Plan - Diagnosis (1) Sepsis Qualifiers: Sepsis type: sepsis due to unspecified organism Qualified Code(s): A41.9 - Sepsis, unspecified organism Is this a current diagnosis for this admission?: Yes (2) Pneumonia Qualifiers: Pneumonia type: due to unspecified organism Laterality: right Lung location: middle lobe of lung Qualified Code(s): J18.1 - Lobar pneumonia, unspecified organism Is this a current diagnosis for this admission?: Yes (3) Pleural effusion on right Is this a current diagnosis for this admission?: Yes (4) Elevated troponin Is this a current diagnosis for this admission?: Yes (5) Paroxysmal A-fib Is this a current diagnosis for this admission?: Yes (6) Hyponatremia Is this a current diagnosis for this admission?: Yes (7) Hypomagnesemia Is this a current diagnosis for this admission?: Yes (8) Hypotension Qualifiers: Hypotension type: unspecified hypotension type Qualified Code(s): I95.9 - Hypotension, unspecified Is this a current diagnosis for this admission?: Yes (9) Exudative pleural effusion Is this a current diagnosis for this admission?: Yes (10) Benzodiazepine withdrawal Qualifiers: Complication of substance-induced condition: with delirium Qualified Code(s ): 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
--- NOTE | 2017-07-05 18:45 | PDOC PROGRESS REPORT ---
Subjective Progress Note for:: 07/05/17 Subjective:: remains alert and oriented. Still c/o pains along chest tube site Reason For Visit: PNEUMONIA,SEPSIS Physical Exam Vital Signs: Temp Pulse Resp BP Pulse Ox 98.2 F 74 13 122/73 95 07/05/17 16:47 07/05/17 16:47 07/05/17 16:47 07/05/17 16:47 07/05/17 16:47 Intake & Output 07/04/17 07/05/17 07/06/17 06:59 06:59 06:59 Intake Total 2800 1600 450 Output Total 2560 3475 650 Balance 240 -1875 -200 Weight 55.8 kg 55.1 kg Exam: Chest tube still draining about 4oo ccs of chylous fluid/24 hrs . Has fluctuation of fluid in the chest tube rubber cord on deep breathing. This tells me the chest tube is draining most if not all of right chest. Has a persistent 10-20% right apical pneumothorax. This is likely due to trapped lung and unlikely to expand with placement of a 2nd chest tube. Called. Dr Sanders at [facility] and discuss pt's condition. He agrees to accept the patient but suggested admission to their medical service and he will see patient in consult.Dr Valencia apparently called him and appraised him of pt's medical condition. I called [facility] and they said they don't have a bed available today. Results Laboratory Results: 07/05/17 07:06 07/05/17 07:06 07/05/17 07/05/17 07/05/17 04:09 04:09 06:20 WBC 7.9 RBC 4.55 Hgb 15.3 Hct 44.8 MCV 98 H MCH 33.6 H MCHC 34.2 RDW 12.6 Plt Count 279 Seg Neutrophils % 55.7 Lymphocytes % 19.5 Monocytes % 15.2 H Eosinophils % 9.0 H Basophils % 0.6 Absolute Neutrophils 4.4 Absolute Lymphocytes 1.5 Absolute Monocytes 1.2 Absolute Eosinophils 0.7 H Absolute Basophils 0.0 Carbonic Acid 1.13 HCO3/H2CO3 Ratio 23:1 ABG pH 7.48 H ABG pCO2 37.6 ABG pO2 56.1 L ABG HCO3 27.1 H ABG O2 Saturation 91.2 L ABG Base Excess 3.6 FiO2 ROOM AIR Sodium 128.4 L Potassium 4.3 D Chloride 95 L Carbon Dioxide 30 Anion Gap 3 L BUN 7 Creatinine 0.51 L Est GFR ( Amer) > 60 Est GFR (Non-Af Amer) > 60 Glucose 99 Calcium 8.4 Magnesium 1.7 Total Bilirubin 0.5 AST 47 H ALT 39 Alkaline Phosphatase 57 Total Protein 5.4 L Albumin 2.8 L 07/05/17 07/05/17 07:06 07:06 WBC 7.5 RBC 4.55 Hgb 15.6 H Hct 45.3 MCV 100 H MCH 34.3 H MCHC 34.4 RDW 12.5 Plt Count 327 Seg Neutrophils % 57.8 Lymphocytes % 18.8 Monocytes % 13.3 H Eosinophils % 9.4 H Basophils % 0.7 Absolute Neutrophils 4.3 Absolute Lymphocytes 1.4 Absolute Monocytes 1.0 Absolute Eosinophils 0.7 H Absolute Basophils 0.1 Carbonic Acid HCO3/H2CO3 Ratio ABG pH ABG pCO2 ABG pO2 ABG HCO3 ABG O2 Saturation ABG Base Excess FiO2 Sodium 128.0 L Potassium 4.8 Chloride 94 L Carbon Dioxide 29 Anion Gap 5 BUN 8 Creatinine 0.53 Est GFR ( Amer) > 60 Est GFR (Non-Af Amer) > 60 Glucose 92 Calcium 8.9 Magnesium Total Bilirubin 0.5 AST 27 ALT 37 Alkaline Phosphatase 59 Total Protein 5.2 L Albumin 2.7 L 06/29/17 06/29/17 06/29/17 13:36 13:36 15:00 Creatine Kinase 154 H 127 CK-MB (CK-2) Cancelled Troponin I Cancelled 06/29/17 15:00 Creatine Kinase CK-MB (CK-2) 11.80 H Troponin I 3.060 Impressions: Thoracentesis Ultrasound 06/29/17 04:03 IMPRESSION: SUCCESSFUL DIAGNOSTIC AND THERAPEUTIC THORACENTESIS USING ULTRASOUND GUIDANCE. Chest CT 07/02/17 00:00 IMPRESSION: 4.6 cm right parahilar mass which occludes the middle lobe and the bronchus intermedius with moderate postobstructive atelectasis. There is bulky adenopathy in the paratracheal and subcarinal stations. Medium sized hydropneumothorax on the right with chest tube in place in the posterior sulcus at the mid thorax level. Abdomen/Pelvis CT 07/04/17 00:00 IMPRESSION: No CT evidence of metastatic disease to the abdomen or pelvis. No acute findings. Head CT 07/04/17 00:00 IMPRESSION: No intracranial pathology. No interval change since the previous study. EVIDENCE OF ACUTE STROKE: NO. Chest X-Ray 07/05/17 07:00 IMPRESSION: Unchanged right chest tube. Unchanged 10 to 20% right apical pneumothorax Persistent right basilar bandlike consolidation, unchanged right hilar mass Assessment & Plan - Diagnosis (1) right hilar mass Is this a current diagnosis for this admission?: Yes
[2017-07-05] MEDS: ZOLPIDEM TARTRATE 5 MG TABLET PO SCH (21:41)
[2017-07-05] MEDS: LEVOFLOXACIN 750 MG/D5W RTU 750 MG/150 ML RTUPB IV SCH (21:42)
[2017-07-06] MEDS: AZTREONAM IV SCH (01:29)
[2017-07-06] MEDS: HYDROMORPHONE HCL INJ/PF 2 MG/ML AMPULE IV SCH ×6 (01:29→21:47)
[2017-07-06] MEDS: NORMAL SALINE IV SCH (01:29)
[2017-07-06] MEDS: ALPRAZOLAM 0.25 MG TABLET PO PRN (04:35)
[2017-07-06] MEDS: BUPROPION HCL 100 MG TABLET PO SCH ×2 (09:59→21:47)
[2017-07-06] MEDS: ENOXAPARIN SODIUM INJ 40 MG/0.4 ML DISP.SYRIN SUBCUT SCH (09:59)
[2017-07-06] MEDS: VALSARTAN 160 MG TABLET PO SCH (10:00)
[2017-07-06] MEDS: PROPRANOLOL HCL 40 MG TABLET PO SCH ×2 (10:01→21:46)
[2017-07-06] MEDS: HYDROCHLOROTHIAZIDE 12.5 MG CAPSULE PO SCH (10:01)
--- NOTE | 2017-07-06 12:00 | PDOC PROGRESS REPORT ---
Subjective Progress Note for:: 07/06/17 Subjective:: No complaints. No shortness of breath. Reason For Visit: PNEUMONIA,SEPSIS Physical Exam Vital Signs: Temp Pulse Resp BP Pulse Ox 97.7 F 73 16 117/69 100 07/06/17 08:28 07/06/17 08:28 07/06/17 08:28 07/06/17 08:28 07/06/17 08:28 Intake & Output 07/05/17 07/06/17 07/07/17 06:59 06:59 06:59 Intake Total 1600 1460 Output Total 3475 2075 Balance -1875 -615 Weight 55.1 kg 53.4 kg General appearance: PRESENT: no acute distress, cooperative Respiratory exam: PRESENT: other - Diminished breath sounds on the right side. Chest tube in place with chylous drainage. Respiratory variation seen in the Pleur-evac but no air leak. Cardiovascular exam: PRESENT: RRR Results Laboratory Results: 07/05/17 07:06 07/05/17 07:06 07/02/17 17:31 Chest Tube Fluid Gram Stain - Final 07/02/17 17:31 Chest Tube Fluid Body Fluid Culture - Final NO AEROBIC OR ANAEROBIC ORGANISMS RECOVERED 06/29/17 06/29/17 06/29/17 13:36 13:36 15:00 Creatine Kinase 154 H 127 CK-MB (CK-2) Cancelled Troponin I Cancelled 06/29/17 15:00 Creatine Kinase CK-MB (CK-2) 11.80 H Troponin I 3.060 Impressions: Thoracentesis Ultrasound 06/29/17 04:03 IMPRESSION: SUCCESSFUL DIAGNOSTIC AND THERAPEUTIC THORACENTESIS USING ULTRASOUND GUIDANCE. Chest CT 07/02/17 00:00 IMPRESSION: 4.6 cm right parahilar mass which occludes the middle lobe and the bronchus intermedius with moderate postobstructive atelectasis. There is bulky adenopathy in the paratracheal and subcarinal stations. Medium sized hydropneumothorax on the right with chest tube in place in the posterior sulcus at the mid thorax level. Abdomen/Pelvis CT 07/04/17 00:00 IMPRESSION: No CT evidence of metastatic disease to the abdomen or pelvis. No acute findings. Head CT 07/04/17 00:00 IMPRESSION: No intracranial pathology. No interval change since the previous study. EVIDENCE OF ACUTE STROKE: NO. Chest X-Ray 07/05/17 07:00 IMPRESSION: Unchanged right chest tube. Unchanged 10 to 20% right apical pneumothorax Persistent right basilar bandlike consolidation, unchanged right hilar mass Assessment & Plan - Diagnosis (1) Exudative pleural effusion Is this a current diagnosis for this admission?: Yes Plan: Status post chest tube placement. Highly suspicious for lung cancer. Pending transfer to [facility]. Patient with a apical pneumothorax but not enlarging and patient asymptomatic.
[2017-07-06 17:32] LABS: ABSOLUTE BASOPHILS # (AUTO) 0.1 10^3/uL (0.0-0.2); ABSOLUTE EOSINOPHILS # (AUTO) 0.7 10^3/uL (0.0-0.6); ABSOLUTE LYMPHOCYTES (AUTO) 1.7 10^3/uL (0.5-4.7); ABSOLUTE NEUT (AUTO) 5.2 10^3/uL (1.7-8.2); EOSINOPHILS % (AUTO) 8.5 % (0-6); HEMATOCRIT 46.5 % (36.0-47.0); LYMPHOCYTES % (AUTO) 19.6 % (13-45); MEAN CORPUSCULAR HEMOGLOBIN 33.9 pg (27.0-33.4); MEAN CORPUSCULAR HGB CONC 34.5 g/dL (32.0-36.0); MEAN CORPUSCULAR VOLUME 98 fl (80-97); MONOCYTES % (AUTO) 10.9 % (3-13); PLATELET COUNT 326 10^3/uL (150-450); RED BLOOD COUNT 4.74 10^6/uL (3.72-5.28); RED CELL DISTRIBUTION WIDTH 12.5 % (11.5-14.0); TOTAL CELLS COUNTED % (AUTO) 100 %; WHITE BLOOD COUNT 8.7 10^3/uL (4.0-10.5)
[2017-07-06 17:50] LABS: ALANINE AMINOTRANSFERASE 32 U/L (9-52); ALBUMIN 3.2 g/dL (3.5-5.0); ALKALINE PHOSPHATASE 55 U/L (38-126); ANION GAP 10 (5-19); ASPARTATE AMINO TRANSFERASE 31 U/L (14-36); BILIRUBIN,DIRECT 0.2 mg/dL (0.0-0.4); BILIRUBIN,TOTAL 0.5 mg/dL (0.2-1.3); BLOOD UREA NITROGEN 11 mg/dL (7-20); CALCIUM 9.4 mg/dL (8.4-10.2); CARBON DIOXIDE 33 mmol/L (22-30); CHLORIDE 83 mmol/L (98-107); GLUCOSE 99 mg/dL (75-110); POTASSIUM 4.8 mmol/L (3.6-5.0); SODIUM 125.8 mmol/L (137-145); TOTAL PROTEIN 5.6 g/dL (6.3-8.2)
[2017-07-06] MEDS: NORMAL SALINE 1000 ML 1,000 ML IV PRN (18:38)
[2017-07-06] MEDS: ZOLPIDEM TARTRATE 5 MG TABLET PO SCH (21:47)
--- NOTE | 2017-07-06 22:09 | PDOC PROGRESS REPORT ---
Subjective Progress Note for:: 07/06/17 Subjective:: Patient is more confused today than yesterday, the sodium is 125, she will be started on low infusion rate of normal saline 30 cc/hr Reason For Visit: PNEUMONIA,SEPSIS Physical Exam Vital Signs: Temp Pulse Resp BP Pulse Ox 97.9 F 68 14 100/62 97 07/06/17 20:21 07/06/17 20:21 07/06/17 20:21 07/06/17 20:21 07/06/17 20:21 Intake & Output 07/05/17 07/06/17 07/07/17 06:59 06:59 06:59 Intake Total 1600 1460 100 Output Total 3477 5189 360 Balance -2988 -791 -213 Weight 55.1 kg 53.4 kg General appearance: PRESENT: no acute distress Head exam: PRESENT: atraumatic, normocephalic Eye exam: PRESENT: PERRLA Neck exam: PRESENT: full ROM Respiratory exam: PRESENT: clear to auscultation carlos Cardiovascular exam: PRESENT: RRR, +S1, +S2 GI/Abdominal exam: PRESENT: soft Neurological exam: PRESENT: other - Confused Skin exam: PRESENT: dry, intact, warm Results Laboratory Results: 07/06/17 17:25 07/06/17 17:25 07/06/17 07/06/17 17:25 17:25 WBC 8.7 RBC 4.74 Hgb 16.0 H Hct 46.5 MCV 98 H MCH 33.9 H MCHC 34.5 RDW 12.5 Plt Count 326 Seg Neutrophils % 60.0 Lymphocytes % 19.6 Monocytes % 10.9 Eosinophils % 8.5 H Basophils % 1.0 Absolute Neutrophils 5.2 Absolute Lymphocytes 1.7 Absolute Monocytes 1.0 Absolute Eosinophils 0.7 H Absolute Basophils 0.1 Sodium 125.8 L Potassium 4.8 Chloride 83 L Carbon Dioxide 33 H Anion Gap 10 BUN 11 Creatinine 0.54 Est GFR ( Amer) > 60 Est GFR (Non-Af Amer) > 60 Glucose 99 Calcium 9.4 Total Bilirubin 0.5 AST 31 ALT 32 Alkaline Phosphatase 55 Total Protein 5.6 L Albumin 3.2 L 07/02/17 17:31 Chest Tube Fluid Gram Stain - Final 07/02/17 17:31 Chest Tube Fluid Body Fluid Culture - Final NO AEROBIC OR ANAEROBIC ORGANISMS RECOVERED 02/06/29/17 06/29/17 13:36 13:36 15:00 Creatine Kinase 154 H 127 CK-MB (CK-2) Cancelled Troponin I Cancelled 06/29/17 15:00 Creatine Kinase CK-MB (CK-2) 11.80 H Troponin I 3.060 Impressions: Thoracentesis Ultrasound 06/29/17 04:03 IMPRESSION: SUCCESSFUL DIAGNOSTIC AND THERAPEUTIC THORACENTESIS USING ULTRASOUND GUIDANCE. Chest CT 07/02/17 00:00 IMPRESSION: 4.6 cm right parahilar mass which occludes the middle lobe and the bronchus intermedius with moderate postobstructive atelectasis. There is bulky adenopathy in the paratracheal and subcarinal stations. Medium sized hydropneumothorax on the right with chest tube in place in the posterior sulcus at the mid thorax level. Abdomen/Pelvis CT 07/04/17 00:00 IMPRESSION: No CT evidence of metastatic disease to the abdomen or pelvis. No acute findings. Head CT 07/04/17 00:00 IMPRESSION: No intracranial pathology. No interval change since the previous study. EVIDENCE OF ACUTE STROKE: NO. Chest X-Ray 07/05/17 07:00 IMPRESSION: Unchanged right chest tube. Unchanged 10 to 20% right apical pneumothorax Persistent right basilar bandlike consolidation, unchanged right hilar mass Assessment & Plan - Diagnosis (1) Sepsis Qualifiers: Sepsis type: sepsis due to unspecified organism Qualified Code(s): A41.9 - Sepsis, unspecified organism Is this a current diagnosis for this admission?: Yes (2) Pneumonia Qualifiers: Pneumonia type: due to unspecified organism Laterality: right Lung location: middle lobe of lung Qualified Code(s): J18.1 - Lobar pneumonia, unspecified organism Is this a current diagnosis for this admission?: Yes (3) Pleural effusion on right Is this a current diagnosis for this admission?: Yes (4) Elevated troponin Is this a current diagnosis for this admission?: Yes (5) Paroxysmal A-fib Is this a current diagnosis for this admission?: Yes (6) Hyponatremia Is this a current diagnosis for this admission?: Yes Plan: Start normal saline (7) Hypomagnesemia Is this a current diagnosis for this admission?: Yes (8) Hypotension Qualifiers: Hypotension type: unspecified hypotension type Qualified Code(s): I95.9 - Hypotension, unspecified Is this a current diagnosis for this admission?: Yes (9) Exudative pleural effusion Is this a current diagnosis for this admission?: Yes (10) Benzodiazepine withdrawal Qualifiers: Complication of substance-induced condition: with delirium Qualified Code(s ): 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
[2017-07-07] MEDS: HYDROMORPHONE HCL INJ/PF 2 MG/ML AMPULE IV SCH ×6 (02:27→21:26)
[2017-07-07] MEDS: HYDROCHLOROTHIAZIDE 12.5 MG CAPSULE PO SCH (10:00)
[2017-07-07] MEDS: ENOXAPARIN SODIUM INJ 40 MG/0.4 ML DISP.SYRIN SUBCUT SCH (11:50)
[2017-07-07] MEDS: BUPROPION HCL 100 MG TABLET PO SCH ×2 (11:51→21:26)
[2017-07-07] MEDS: VALSARTAN 160 MG TABLET PO SCH (12:11)
[2017-07-07] MEDS: PROPRANOLOL HCL 40 MG TABLET PO SCH ×2 (12:11→21:26)
--- NOTE | 2017-07-07 18:11 | PDOC TRANSFER SUMMARY ---
General Admission Date/PCP: 06/29/17 04:26 NOLAN KIRKPATRICK MD Transfer Date: 07/07/17 Accepting Facility: [facility] Status: Full Code - Transfer Diagnosis (1) Sepsis Is this a current diagnosis for this admission?: Yes (2) Chylothorax Is this a current diagnosis for this admission?: Yes (3) Pneumonia Is this a current diagnosis for this admission?: Yes (4) Pleural effusion on right Is this a current diagnosis for this admission?: Yes (5) Elevated troponin Is this a current diagnosis for this admission?: Yes (6) Paroxysmal A-fib Is this a current diagnosis for this admission?: Yes (7) Hyponatremia Is this a current diagnosis for this admission?: Yes (8) Hypomagnesemia Is this a current diagnosis for this admission?: Yes (9) Hypotension Is this a current diagnosis for this admission?: Yes (10) Exudative pleural effusion Is this a current diagnosis for this admission?: Yes (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) Is this a current diagnosis for this admission?: Yes (12) Encephalopathy Is this a current diagnosis for this admission?: Yes (13) Hilar mass Is this a current diagnosis for this admission?: Yes (14) Benzodiazepine withdrawal Is this a current diagnosis for this admission?: Yes - Transfer Medications Home Medications: Bupropion HCl [Wellbutrin Xl 300mg 24hr Tablet] 1 tab PO DAILY 06/29/17 Propranolol HCl [Inderal La] 160 mg PO DAILY 06/29/17 Valsartan/Hydrochlorothiazide [Valsartan-Hctz 320-25 mg Tab] 0.5 each PO DAILY 06/29/17 Transfer Medications: Current Medications Acetaminophen (Tylenol 325 Mg Tablet) 650 mg PO Q4HP PRN PRN Reason: FOR PAIN OR FEVER Stop: 07/29/17 20:09 Last Admin: 07/01/17 17:03 Dose: 650 mg Alprazolam (Xanax 0.25 Mg Tablet) 0.25 mg PO Q8HP PRN Stop: 07/08/17 05:44 Last Admin: 07/06/17 04:35 Dose: 0.25 mg Bupropion HCl (Wellbutrin 100 Mg Tablet) 150 mg PO Q12 [facility] Stop: 07/29/17 21:59 Last Admin: 07/07/17 11:51 Dose: 150 mg Enoxaparin Sodium (Lovenox Inj 40 Mg/0.4 Ml Disp.Syrin) 40 mg SUBCUT DAILY [facility] Stop: 07/29/17 09:59 Last Admin: 07/07/17 11:50 Dose: 40 mg Hydralazine HCl (Apresoline Inj/Pf 20 Mg/1 Ml Sdv) 20 mg IV Q4HP PRN PRN Reason: SBP>160 Stop: 07/30/17 19:51 Last Admin: 07/01/17 20:48 Dose: 20 mg Hydrochlorothiazide (Hydrodiuril 12.5 Mg Capsule) 12.5 mg PO DAILY [facility] Stop: 07/29/17 09:59 Last Admin: 07/07/17 10:00 Dose: Not Given Hydromorphone HCl (Dilaudid Inj/Pf 2 Mg/Ml Ampule) 0.25 mg IV Q4 [facility] Stop: 07/11/17 13:59 Last Admin: 07/07/17 14:45 Dose: 0.25 mg Sodium Chloride (Nacl 0.9% 1000 Ml Iv Soln) 1,000 mls @ 30 mls/hr IV CONTINUOUS PRN PRN Reason: THIS MED IS NOT "PRN" Stop: 08/05/17 18:06 Last Admin: 07/06/17 18:38 Dose: 1,000 ml Lorazepam (Ativan Inj 2 Mg/1 Ml Vial) 2 mg IV Q4HP PRN PRN Reason: ANXIETY Stop: 07/10/17 08:10 Propranolol HCl (Inderal 40 Mg Tablet) 80 mg PO Q12 SHOAIB Stop: 07/29/17 09:59 Last Admin: 07/07/17 12:11 Dose: Not Given Valsartan (Diovan 160 Mg Tablet) 320 mg PO DAILY [facility] Stop: 08/01/17 09:59 Last Admin: 07/07/17 12:11 Dose: Not Given Zolpidem Tartrate (Ambien 5 Mg Tablet) 5 mg PO QHS [facility] Stop: 07/13/17 21:59 Last Admin: 07/06/17 21:47 Dose: 5 mg - Allergies Allergies/Adverse Reactions: Penicillins Allergy (Intermediate, Verified 11/30/13 13:53) alendronate sodium [From Fosamax] Allergy (Unknown, Verified 11/30/13 13:53) rosuvastatin calcium [From Crestor] Allergy (Unknown, Verified 11/30/13 13:53) Guacamole Allergy (Severe, Uncoded 11/30/13 13:53) Swelling of Throat Hospital Course Hospital Course: She could emergency room on 06/29/2017 for evaluation of malaise, palpitation and cough, in the emergency room she was evaluated she was found to have hypothymia with a core temperature of 95, hypotension. She was treated with adenosine she also required Graham-Synephrine and she was given IV fluids for the low blood pressure, the blood pressure was stabilized. The chest x-ray showed a large right pleural effusion associated with infiltrates she also had lactic acidosis, hyponatremia the same day she was admitted she had thoracentesis, over 1600 cc of pleural fluid was collected, it was whitish suspicious for chylothorax it was sent for analysis it was consistent with exudate she was treated empirically with IV antibiotic for pneumonia and sepsis she also had elevated troponin on admission and episode of paroxysmal atrial fibrillation. CT chest was done on 07/02/2017, it showed large pleural effusion with a right parahilar mass that measures 4 cm in size no consultation was requested from surgery and the chest was inserted over 3 L of fluid was collected consistent with exudative fluid does suggest chylothorax. She had episode of confusion due to severe hyponatremia consistent with SIADH most likely secondary to lung disease, she was slowly hydrated with normal saline ,sodium was corrected to 125 , she subsequently improved. Consultation was requested from pulmonary, he suggested that the best plan of care for this patient is to see a CT surgeon for thoracotomy. Physical Exam Vital Signs: Temp Pulse Resp BP Pulse Ox 98.2 F 77 20 144/72 H 91 L 07/07/17 15:42 07/07/17 15:42 07/07/17 15:42 07/07/17 15:42 07/07/17 15:42 Intake & Output 07/06/17 07/07/17 07/08/17 06:59 06:59 06:59 Intake Total 1460 940 458 Output Total 2075 1310 400 Balance -615 -370 58 Weight 53.4 kg 53.7 kg General appearance: PRESENT: no acute distress Eye exam: PRESENT: PERRLA Respiratory exam: PRESENT: decreased breath sounds Cardiovascular exam: PRESENT: +S1, +S2 GI/Abdominal exam: PRESENT: soft Neurological exam: PRESENT: alert, CN II-XII grossly intact Results Laboratory Results: 07/06/17 17:25 07/06/17 17:25 06/29/17 06/29/17 06/29/17 13:36 13:36 15:00 Creatine Kinase 154 H 127 CK-MB (CK-2) Cancelled Troponin I Cancelled 06/29/17 15:00 Creatine Kinase CK-MB (CK-2) 11.80 H Troponin I 3.060 Impressions: Thoracentesis Ultrasound 06/29/17 04:03 IMPRESSION: SUCCESSFUL DIAGNOSTIC AND THERAPEUTIC THORACENTESIS USING ULTRASOUND GUIDANCE. Chest CT 07/02/17 00:00 IMPRESSION: 4.6 cm right parahilar mass which occludes the middle lobe and the bronchus intermedius with moderate postobstructive atelectasis. There is bulky adenopathy in the paratracheal and subcarinal stations. Medium sized hydropneumothorax on the right with chest tube in place in the posterior sulcus at the mid thorax level. Abdomen/Pelvis CT 07/04/17 00:00 IMPRESSION: No CT evidence of metastatic disease to the abdomen or pelvis. No acute findings. Head CT 07/04/17 00:00 IMPRESSION: No intracranial pathology. No interval change since the previous study. EVIDENCE OF ACUTE STROKE: NO. Chest X-Ray 07/05/17 07:00 IMPRESSION: Unchanged right chest tube. Unchanged 10 to 20% right apical pneumothorax Persistent right basilar bandlike consolidation, unchanged right hilar mass
[2017-07-07 18:26] LABS: BLOOD UREA NITROGEN 12 mg/dL (7-20); GLUCOSE 113 mg/dL (75-110); POTASSIUM 4.5 mmol/L (3.6-5.0)
[2017-07-07 18:32] LABS: ANION GAP 5 (5-19); CARBON DIOXIDE 33 mmol/L (22-30); CHLORIDE 89 mmol/L (98-107); SODIUM 126.8 mmol/L (137-145)
--- NOTE | 2017-07-07 20:12 | PDOC PROGRESS REPORT ---
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 Chest CT 07/02/17 00:00 IMPRESSION: 4.6 cm right parahilar mass which occludes the middle lobe and the bronchus intermedius with moderate postobstructive atelectasis. There is bulky adenopathy in the paratracheal and subcarinal stations. Medium sized hydropneumothorax on the right with chest tube in place in the posterior sulcus at the mid thorax level. Abdomen/Pelvis CT 07/04/17 00:00 IMPRESSION: No CT evidence of metastatic disease to the abdomen or pelvis. No acute findings. Head CT 07/04/17 00:00 IMPRESSION: No intracranial pathology. No interval change since the previous study. EVIDENCE OF ACUTE STROKE: NO. Chest X-Ray 07/05/17 07:00 IMPRESSION: Unchanged right chest tube. Unchanged 10 to 20% right apical pneumothorax Persistent right basilar bandlike consolidation, unchanged right hilar mass Assessment & Plan - Diagnosis (1) right hilar mass Is this a current diagnosis for this admission?: Yes - Plan Summary Plan Summary: PMD made arrangement for transfer to [facility] since no bed available at [facility]
[2017-07-07] MEDS: ZOLPIDEM TARTRATE 5 MG TABLET PO SCH (21:26)
[2017-07-08] MEDS: HYDROMORPHONE HCL INJ/PF 2 MG/ML AMPULE IV SCH ×6 (02:08→22:25)
[2017-07-08] MEDS: NORMAL SALINE 1000 ML 1,000 ML IV PRN (02:08)
[2017-07-08 09:19] LABS: ABSOLUTE EOSINOPHILS # (AUTO) 0.7 10^3/uL (0.0-0.6); ABSOLUTE LYMPHOCYTES (AUTO) 1.3 10^3/uL (0.5-4.7); ABSOLUTE MONOCYTES (AUTO) 0.7 10^3/uL (0.1-1.4); ABSOLUTE NEUT (AUTO) 4.7 10^3/uL (1.7-8.2); BASOPHILS % (AUTO) 0.7 % (0-2); HEMATOCRIT 44.9 % (36.0-47.0); HEMOGLOBIN 15.3 g/dL (12.0-15.5); LYMPHOCYTES % (AUTO) 17.3 % (13-45); MEAN CORPUSCULAR HEMOGLOBIN 33.9 pg (27.0-33.4); MEAN CORPUSCULAR HGB CONC 34.1 g/dL (32.0-36.0); MEAN CORPUSCULAR VOLUME 99 fl (80-97); MONOCYTES % (AUTO) 9.7 % (3-13); PLATELET COUNT 357 10^3/uL (150-450); RED BLOOD COUNT 4.53 10^6/uL (3.72-5.28); RED CELL DISTRIBUTION WIDTH 12.8 % (11.5-14.0); SEGMENTED NEUTROPHILS % (AUTO) 63.3 % (42-78); TOTAL CELLS COUNTED % (AUTO) 100 %; WHITE BLOOD COUNT 7.5 10^3/uL (4.0-10.5)
[2017-07-08 09:30] LABS: INTERNATIONAL RATION (INR) 0.91; PROTHROMBIN TIME 12.9 SEC (11.4-15.4)
[2017-07-08 09:31] LABS: PARTIAL THROMBOPLASTIN TIME 30.7 SEC (23.5-35.8)
[2017-07-08 09:34] LABS: ANION GAP 7 (5-19); BLOOD UREA NITROGEN 9 mg/dL (7-20); CARBON DIOXIDE 33 mmol/L (22-30); CHLORIDE 91 mmol/L (98-107); GLUCOSE 122 mg/dL (75-110); POTASSIUM 4.2 mmol/L (3.6-5.0); SODIUM 131.1 mmol/L (137-145)
[2017-07-08] MEDS: VALSARTAN 160 MG TABLET PO SCH (10:14)
[2017-07-08] MEDS: HYDROCHLOROTHIAZIDE 12.5 MG CAPSULE PO SCH (10:15)
[2017-07-08] MEDS: PROPRANOLOL HCL 40 MG TABLET PO SCH ×2 (10:15→22:23)
[2017-07-08] MEDS: ENOXAPARIN SODIUM INJ 40 MG/0.4 ML DISP.SYRIN SUBCUT SCH (10:16)
[2017-07-08] MEDS: BUPROPION HCL 100 MG TABLET PO SCH ×2 (10:16→22:24)
--- NOTE | 2017-07-08 10:29 | PDOC PROGRESS REPORT ---
Subjective Progress Note for:: 07/08/17 Subjective:: Patient is currently doing well patient's denied any chest pain denied any shortness of breath Patient is more alert awake and oriented fully per family Sodium level is 131's much better compared to yesterday Still have a chest tube on the right side and still have a milky appearance fluid coming 100 cc in the last shift Reason For Visit: PNEUMONIA,SEPSIS Physical Exam Vital Signs: Temp Pulse Resp BP Pulse Ox 97.5 F 63 18 108/69 96 07/08/17 08:11 07/08/17 08:11 07/08/17 08:11 07/08/17 08:11 07/08/17 08:11 Intake & Output 07/07/17 07/08/17 07/09/17 06:59 06:59 06:59 Intake Total 940 2413 Output Total 1310 1600 Balance -370 813 Weight 53.7 kg 53.5 kg General appearance: PRESENT: no acute distress, well-developed, well-nourished Head exam: PRESENT: atraumatic, normocephalic Eye exam: PRESENT: conjunctiva pink, EOMI, PERRLA. ABSENT: scleral icterus Ear exam: PRESENT: normal external ear exam Mouth exam: PRESENT: moist, tongue midline Neck exam: PRESENT: full ROM. ABSENT: carotid bruit, JVD, lymphadenopathy, thyromegaly Respiratory exam: PRESENT: decreased breath sounds Additional comments: Right-sided chest tube is intact Cardiovascular exam: PRESENT: RRR. ABSENT: diastolic murmur, rubs, systolic murmur Pulses: PRESENT: normal dorsalis pedis pul, +2 pedal pulses bilateral Vascular exam: PRESENT: normal capillary refill GI/Abdominal exam: PRESENT: normal bowel sounds, soft. ABSENT: distended, guarding, mass, organolmegaly, rebound, tenderness Rectal exam: PRESENT: deferred Extremities exam: ABSENT: pedal edema Neurological exam: PRESENT: alert, awake, oriented to person, oriented to place. ABSENT: motor sensory deficit Psychiatric exam: PRESENT: appropriate affect, normal mood. ABSENT: homicidal ideation, suicidal ideation Skin exam: PRESENT: dry, intact, warm. ABSENT: cyanosis, rash Results Laboratory Results: 07/08/17 08:51 07/08/17 08:51 07/07/17 07/08/17 07/08/17 18:00 08:51 08:51 WBC 7.5 RBC 4.53 Hgb 15.3 Hct 44.9 MCV 99 H MCH 33.9 H MCHC 34.1 RDW 12.8 Plt Count 357 Seg Neutrophils % 63.3 Lymphocytes % 17.3 Monocytes % 9.7 Eosinophils % 9.0 H Basophils % 0.7 Absolute Neutrophils 4.7 Absolute Lymphocytes 1.3 Absolute Monocytes 0.7 Absolute Eosinophils 0.7 H Absolute Basophils 0.0 Sodium 126.8 L 131.1 L Potassium 4.5 4.2 Chloride 89 L 91 L Carbon Dioxide 33 H 33 H Anion Gap 5 7 BUN 12 9 Creatinine 0.52 0.55 Est GFR ( Amer) > 60 > 60 Est GFR (Non-Af Amer) > 60 > 60 Glucose 113 H 122 H Calcium 9.0 9.0 06/29/17 06/29/17 06/29/17 13:36 13:36 15:00 Creatine Kinase 154 H 127 CK-MB (CK-2) Cancelled Troponin I Cancelled 06/29/17 15:00 Creatine Kinase CK-MB (CK-2) 11.80 H Troponin I 3.060 Impressions: Thoracentesis Ultrasound 06/29/17 04:03 IMPRESSION: SUCCESSFUL DIAGNOSTIC AND THERAPEUTIC THORACENTESIS USING ULTRASOUND GUIDANCE. Chest CT 07/02/17 00:00 IMPRESSION: 4.6 cm right parahilar mass which occludes the middle lobe and the bronchus intermedius with moderate postobstructive atelectasis. There is bulky adenopathy in the paratracheal and subcarinal stations. Medium sized hydropneumothorax on the right with chest tube in place in the posterior sulcus at the mid thorax level. Abdomen/Pelvis CT 07/04/17 00:00 IMPRESSION: No CT evidence of metastatic disease to the abdomen or pelvis. No acute findings. Head CT 07/04/17 00:00 IMPRESSION: No intracranial pathology. No interval change since the previous study. EVIDENCE OF ACUTE STROKE: NO. Chest X-Ray 07/05/17 07:00 IMPRESSION: Unchanged right chest tube. Unchanged 10 to 20% right apical pneumothorax Persistent right basilar bandlike consolidation, unchanged right hilar mass Assessment & Plan - Diagnosis (1) Chylothorax Qualifiers: Laterality: right Qualified Code(s): I89.8 - Other specified noninfective disorders of lymphatic vessels and lymph nodes Is this a current diagnosis for this admission?: Yes Plan: Status post chest tube (2) Paroxysmal A-fib Is this a current diagnosis for this admission?: Yes Plan: Currently all stable (3) Pleural effusion on right Is this a current diagnosis for this admission?: Yes (4) SIADH (syndrome of inappropriate ADH production) Is this a current diagnosis for this admission?: Yes Plan: Sodium is currently all stable (5) right hilar mass Is this a current diagnosis for this admission?: Yes - Time Time Spent with patient: 15-24 minutes Medications reviewed and adjusted accordingly: Yes Anticipated discharge: Other Within: Other - Inpatient Certification Medical Necessity: Need Close Monitoring Due to Risk of Patient Decompensation Post Hospital Care: D/C Sales Representative Consultant Documentation - Plan Summary Plan Summary: Discussed with the patient and the family in the room waiting to transfer the tertiary centers when the bed available currently otherwise stable
--- NOTE | 2017-07-08 21:49 | PDOC PROGRESS REPORT ---
Subjective Progress Note for:: 07/08/17 Subjective:: Minimal pains at the chest tube site Reason For Visit: PNEUMONIA,SEPSIS Physical Exam Vital Signs: Temp Pulse Resp BP Pulse Ox 97.9 F 69 19 121/64 93 07/08/17 15:29 07/08/17 19:00 07/08/17 15:29 07/08/17 15:29 07/08/17 15:29 Intake & Output 07/07/17 07/08/17 07/09/17 06:59 06:59 06:59 Intake Total 940 2413 610 Output Total 1310 1600 1875 Balance -370 813 -1265 Weight 53.7 kg 53.5 kg Exam: Chest tube site is not inflamed Chest tube still draining chylous fluid Awaiting transfer to [facility] Results Laboratory Results: 07/08/17 08:51 07/08/17 08:51 07/08/17 07/08/17 08:51 08:51 WBC 7.5 RBC 4.53 Hgb 15.3 Hct 44.9 MCV 99 H MCH 33.9 H MCHC 34.1 RDW 12.8 Plt Count 357 Seg Neutrophils % 63.3 Lymphocytes % 17.3 Monocytes % 9.7 Eosinophils % 9.0 H Basophils % 0.7 Absolute Neutrophils 4.7 Absolute Lymphocytes 1.3 Absolute Monocytes 0.7 Absolute Eosinophils 0.7 H Absolute Basophils 0.0 Sodium 131.1 L Potassium 4.2 Chloride 91 L Carbon Dioxide 33 H Anion Gap 7 BUN 9 Creatinine 0.55 Est GFR ( Amer) > 60 Est GFR (Non-Af Amer) > 60 Glucose 122 H Calcium 9.0 06/29/17 06/29/17 06/29/17 13:36 13:36 15:00 Creatine Kinase 154 H 127 CK-MB (CK-2) Cancelled Troponin I Cancelled 06/29/17 15:00 Creatine Kinase CK-MB (CK-2) 11.80 H Troponin I 3.060 Impressions: Thoracentesis Ultrasound 06/29/17 04:03 IMPRESSION: SUCCESSFUL DIAGNOSTIC AND THERAPEUTIC THORACENTESIS USING ULTRASOUND GUIDANCE. Chest CT 07/02/17 00:00 IMPRESSION: 4.6 cm right parahilar mass which occludes the middle lobe and the bronchus intermedius with moderate postobstructive atelectasis. There is bulky adenopathy in the paratracheal and subcarinal stations. Medium sized hydropneumothorax on the right with chest tube in place in the posterior sulcus at the mid thorax level. Abdomen/Pelvis CT 07/04/17 00:00 IMPRESSION: No CT evidence of metastatic disease to the abdomen or pelvis. No acute findings. Head CT 07/04/17 00:00 IMPRESSION: No intracranial pathology. No interval change since the previous study. EVIDENCE OF ACUTE STROKE: NO. Chest X-Ray 07/05/17 07:00 IMPRESSION: Unchanged right chest tube. Unchanged 10 to 20% right apical pneumothorax Persistent right basilar bandlike consolidation, unchanged right hilar mass Assessment & Plan - Diagnosis (1) right hilar mass Is this a current diagnosis for this admission?: Yes
[2017-07-08 22:23] VITALS: BP 122/63
[2017-07-08] MEDS: ZOLPIDEM TARTRATE 5 MG TABLET PO SCH (22:25)
--- NOTE | 2017-07-09 07:41 | PDOC PROGRESS REPORT ---
Subjective Progress Note for:: 07/06/17 Subjective:: remaining calm Reason For Visit: PNEUMONIA,SEPSIS Physical Exam Vital Signs: Temp Pulse Resp BP Pulse Ox 97.7 F 73 16 117/69 100 07/06/17 08:28 07/06/17 08:28 07/06/17 08:28 07/06/17 08:28 07/06/17 08:28 Intake & Output 07/05/17 07/06/17 07/07/17 06:59 06:59 06:59 Intake Total 1600 1460 Output Total 3475 2075 Balance -1875 -615 Weight 55.1 kg 53.4 kg General appearance: PRESENT: no acute distress, cooperative, disheveled, thin Head exam: PRESENT: atraumatic, normocephalic Eye exam: PRESENT: conjunctiva pale, EOMI. ABSENT: nystagmus, periorbital swelling, scleral icterus Mouth exam: PRESENT: dry mucosa, neck supple, tongue midline Neck exam: ABSENT: carotid bruit, JVD, lymphadenopathy, thyromegaly, tracheal deviation, tracheostomy Respiratory exam: PRESENT: decreased breath sounds - elvia r base, prolonged expiratory phas, rales, rhonchi, unlabored. ABSENT: retraction, stridor, tachypnea Cardiovascular exam: PRESENT: RRR, +S1, +S2 Pulses: PRESENT: normal radial pulses GI/Abdominal exam: PRESENT: diminished bowel sounds, soft Extremities exam: ABSENT: clubbing Musculoskeletal exam: ABSENT: deformity, dislocation Neurological exam: PRESENT: awake Psychiatric exam: PRESENT: flat affect Skin exam: PRESENT: dry, warm Results Laboratory Results: 07/05/17 07:06 07/05/17 07:06 07/02/17 17:31 Chest Tube Fluid Gram Stain - Final 07/02/17 17:31 Chest Tube Fluid Body Fluid Culture - Final NO AEROBIC OR ANAEROBIC ORGANISMS RECOVERED 06/29/17 06/29/17 06/29/17 13:36 13:36 15:00 Creatine Kinase 154 H 127 CK-MB (CK-2) Cancelled Troponin I Cancelled 06/29/17 15:00 Creatine Kinase CK-MB (CK-2) 11.80 H Troponin I 3.060 Impressions: Thoracentesis Ultrasound 06/29/17 04:03 IMPRESSION: SUCCESSFUL DIAGNOSTIC AND THERAPEUTIC THORACENTESIS USING ULTRASOUND GUIDANCE. Chest CT 07/02/17 00:00 IMPRESSION: 4.6 cm right parahilar mass which occludes the middle lobe and the bronchus intermedius with moderate postobstructive atelectasis. There is bulky adenopathy in the paratracheal and subcarinal stations. Medium sized hydropneumothorax on the right with chest tube in place in the posterior sulcus at the mid thorax level. Abdomen/Pelvis CT 07/04/17 00:00 IMPRESSION: No CT evidence of metastatic disease to the abdomen or pelvis. No acute findings. Head CT 07/04/17 00:00 IMPRESSION: No intracranial pathology. No interval change since the previous study. EVIDENCE OF ACUTE STROKE: NO. Chest X-Ray 07/05/17 07:00 IMPRESSION: Unchanged right chest tube. Unchanged 10 to 20% right apical pneumothorax Persistent right basilar bandlike consolidation, unchanged right hilar mass Assessment & Plan - Diagnosis (1) Hilar mass Is this a current diagnosis for this admission?: Yes Plan: ? malignancy (2) Hyponatremia Is this a current diagnosis for this admission?: Yes Plan: unchanged (3) Pleural effusion on right Is this a current diagnosis for this admission?: Yes Plan: Chest tube remains draining moderate amount of fluid (4) Encephalopathy Is this a current diagnosis for this admission?: Yes Plan: resolved
== END 2017-07-08 23:45 | disposition short-term general hospital (02) | DRG 871 ==
LOC: ER 01:40 → EH 04:26 → 3W 15:36
PROVIDERS: ADMIT Internal Medicine; ATTEND Internal Medicine
PROC: 0W9930Z Drainage of Right Pleural Cavity with Drainage Device, Percutaneous Approach (ICD-10-PCS; principal; 2017-06-30)
PROC: 5A09357 Assistance with Respiratory Ventilation, Less than 24 Consecutive Hours, Continuous Positive Airway Pressure (ICD-10-PCS; 2017-07-03)
DX: A41.9 Sepsis, unspecified organism (principal); J18.1 Lobar pneumonia, unspecified organism; G93.40 Encephalopathy, unspecified; J90 Pleural effusion, not elsewhere classified; E22.2 Syndrome of inappropriate secretion of antidiuretic hormone; F13.239 Sedative, hypnotic or anxiolytic dependence with withdrawal, unspecified; J94.8 Other specified pleural conditions; I89.8 Other specified noninfective disorders of lymphatic vessels and lymph nodes; R74.8 Abnormal levels of other serum enzymes; I48.0 Paroxysmal atrial fibrillation; E83.42 Hypomagnesemia; I95.9 Hypotension, unspecified; T42.75XA Adverse effect of unspecified antiepileptic and sedative-hypnotic drugs, initial encounter; T68.XXXA Hypothermia, initial encounter; I10 Essential (primary) hypertension; K21.9 Gastro-esophageal reflux disease without esophagitis; F32.9 Major depressive disorder, single episode, unspecified; F41.9 Anxiety disorder, unspecified; Z88.0 Allergy status to penicillin; Z88.8 Allergy status to other drugs, medicaments and biological substances; Z91.018 Allergy to other foods; Z79.899 Other long term (current) drug therapy; Z78.1 Physical restraint status
CPT/HCPCS: 32555; 36415; 36600; 51702; 70450; 71045; 71260; 74176; 80048; 80053; 80061; 80076; 80202; 80307; 81001; 82140; 82150; 82550; 82553; 82565; 82607; 82803; 82945; 83036; 83605; 83615; 83690; 83735; 83880; 83930; 83935; 84100; 84155; 84157; 84300; 84311; 84439; 84443; 84484; 85025; 85610; 85730; 87015; 87040; 87070; 87075; 87086; 87101; 87116; 87205; 87206; 87252; 88304; 88305; 88341; 88342; 89050; 93005; 93010; 93306; 94660; 94799; 96365; 96367; 96375; 99291; 99292; C1752; J0153; J0360; J0692; J1170; J1650; J1885; J1940; J1956; J2060; J2370; J3010; J3370; J3475; J3490; J7030; J7060

== ENCOUNTER 2017-08-17 13:32 | Inpatient (IN) | payer MEDICARE ==
[2017-08-17] MEDS ORDERED: NORMAL SALINE 1000 ML 1,000 ML IV ONE ×2 (13:43→14:41)
[2017-08-17 14:25] LABS: ABSOLUTE LYMPHOCYTES (AUTO) 0.2 10^3/uL (0.5-4.7); ABSOLUTE NEUT (AUTO) 0.3 10^3/uL (1.7-8.2); BASOPHILS % (AUTO) 0.3 % (0-2); EOSINOPHILS % (AUTO) 1.2 % (0-6); HEMATOCRIT 38.6 % (36.0-47.0); HEMOGLOBIN 12.6 g/dL (12.0-15.5); LYMPHOCYTES % (AUTO) 31.1 % (13-45); MEAN CORPUSCULAR HEMOGLOBIN 32.1 pg (27.0-33.4); MEAN CORPUSCULAR HGB CONC 32.8 g/dL (32.0-36.0); MEAN CORPUSCULAR VOLUME 98 fl (80-97); MONOCYTES % (AUTO) 9.3 % (3-13); RED BLOOD COUNT 3.94 10^6/uL (3.72-5.28); SEGMENTED NEUTROPHILS % (AUTO) 58.1 % (42-78); TOTAL CELLS COUNTED % (AUTO) 100 %
[2017-08-17 14:36] LABS: VENOUS BLOOD BASE EXCESS -5.8 mmol/L; VENOUS BLOOD HCO3 21.7 mmol/L (20-32); VENOUS BLOOD PCO2 53.9 mmHg (35-63); VENOUS BLOOD PH 7.22 (7.30-7.42)
[2017-08-17] MEDS ORDERED: LEVOFLOXACIN 750 MG/D5W RTU 750 MG/150 ML RTUPB IV ONE (14:40)
[2017-08-17] MEDS ORDERED: NORMAL SALINE 500 ML IV ONE (14:41)
--- NOTE | 2017-08-17 14:41 | ER Document Report ---
ED General - General Chief Complaint: General Weakness Stated Complaint: ALTERED MENTAL STATUS Time Seen by Provider: 08/17/17 13:43 Mode of Arrival: Medic Information source: Patient, Relative, Emergency Med Personnel, Office, Outside Facility Records Cannot obtain history due to: Unstable vital signs, Altered mental status Notes: 72-year-old female history of small cell lung CA who is receiving chemotherapy presents somnolent hypotensive per EMS. Patient's initial blood pressures 50s over 40s. Family notes patient has not been feeling well for the past day, he denies any fevers or chills patient had recent chest tube on the right TRAVEL OUTSIDE OF THE [place] IN LAST 30 DAYS: No - HPI Onset: This morning Onset/Duration: Sudden Quality of pain: No pain Severity: Severe Pain Level: Denies Associated symptoms: Weakness, Other Exacerbated by: Denies Relieved by: Denies Similar symptoms previously: No Recently seen / treated by doctor: No - Related Data Allergies/Adverse Reactions: Penicillins Allergy (Intermediate, Verified 11/30/13 13:53) alendronate sodium [From Fosamax] Allergy (Unknown, Verified 11/30/13 13:53) rosuvastatin calcium [From Crestor] Allergy (Unknown, Verified 11/30/13 13:53) Guacamole Allergy (Severe, Uncoded 11/30/13 13:53) Swelling of Throat Past Medical History - Social History Smoking Status: Former Smoker Cigarette use (# per day): No Chew tobacco use (# tins/day): No Smoking Education Provided: No Frequency of alcohol use: None Drug Abuse: None Family History: Reviewed & Not Pertinent Patient has suicidal ideation: No Patient has homicidal ideation: No - Past Medical History Cardiac Medical History: Reports: Hx Hypertension Pulmonary Medical History: Denies: Hx Tuberculosis Renal/ Medical History: Denies: Hx Peritoneal Dialysis GI Medical History: Reports: Hx Gastroesophageal Reflux Disease Psychiatric Medical History: Reports: Hx Anxiety, Hx Depression - Immunizations Hx Pneumococcal Vaccination: 05/08/10 Review of Systems - Review of Systems Notes: REVIEW OF SYSTEMS: CONSTITUTIONAL : Denies fever, chills, or sweats. Denies recent illness. EENT: Denies eye, ear, throat, or mouth pain or symptoms. Denies nasal or sinus congestion or discharge. Denies throat, tongue, or mouth swelling or difficulty swallowing. CARDIOVASCULAR: Denies chest pain. Denies palpitations or racing or irregular heart beat. Denies ankle edema. RESPIRATORY: Denies cough, cold, or chest congestion. Denies shortness of breath, difficulty breathing, or wheezing. GASTROINTESTINAL: Denies abdominal pain or distention. Denies nausea, vomiting , or diarrhea. Denies blood in vomitus, stools, or per rectum. Denies black, tarry stools. Denies constipation. GENITOURINARY: Denies difficulty urinating, painful urination, burning, frequency, blood in urine, or discharge. FEMALE GENITOURINARY: Denies vaginal bleeding, heavy or abnormal periods, irregular periods. Denies vaginal discharge or odor. MUSCULOSKELETAL: Denies back or neck pain or stiffness. Denies joint pain or swelling. SKIN: Denies rash, lesions or sores. HEMATOLOGIC : Denies easy bruising or bleeding. LYMPHATIC: Denies swollen, enlarged glands. NEUROLOGICAL: Admits weakness PSYCHIATRIC: Denies anxiety or stress. Denies depression, suicidal ideation, or homicidal ideation. ALL OTHER SYSTEMS REVIEWED AND NEGATIVE. PHYSICAL EXAMINATION: GENERAL: Ill-appearing female hypotensive somnolent HEAD: Atraumatic, normocephalic. EYES: Pupils equal round and reactive to light, extraocular movements intact, conjunctiva are normal. ENT: Nares patent, oropharynx clear without exudates. Moist mucous membranes. NECK: Normal range of motion, supple without lymphadenopathy LUNGS: Breath sounds clear to auscultation bilaterally and equal. No wheezes rales or rhonchi. HEART: Regular rate and rhythm without murmurs ABDOMEN: Soft, nontender, nondistended abdomen. No guarding, no rebound. No masses appreciated. Female : deferred Musculoskeletal: Normal range of motion, no pitting or edema. No cyanosis. NEUROLOGICAL: Somnolent PSYCH: Normal mood, normal affect. SKIN: Tenting of skin Dictation was performed using [employer] voice recognition software Physical Exam - Vital signs Vitals: Resp 21 H 08/17/17 13:42 Course - Re-evaluation Re-evalutation: Patient was noted to be significantly hypotensive upon arrival 08/17/17 14:41 Patient was continued on the 500 cc bolus from EMS, 2 further liters of IV fluids were given, her pressure improved significantly, lactate is noted to be significantly elevated, no signs of infection at this time but a dose of antibiotics will be ordered as well 08/17/17 15:13 After IV fluids were given patient's blood pressure went from 50s over 40s-90s over 70s, I did speak with who will admit, I did start the patient on initially Levaquin he requests as shown them and bank which I will order as well. Patient does have a port which will be accessed if the patient requires levo fed will admit to IMCU at this time - Vital Signs Vital signs: Temp Pulse Resp BP Pulse Ox 97.7 F 74 29 H 101/73 88 L 08/17/17 14:06 08/17/17 14:06 08/17/17 14:31 08/17/17 14:31 08/17/17 14:20 - Laboratory Result Diagrams: 08/17/17 13:50 08/17/17 13:50 Laboratory results interpreted by me: 08/17/17 08/17/17 08/17/17 13:50 13:50 13:50 WBC 0.5 L* MCV 98 H Plt Count 67 L Absolute Neutrophils 0.3 L Absolute Lymphocytes 0.2 L Absolute Monocytes 0.0 L VBG pH Sodium 134.6 L Carbon Dioxide 19 L BUN 28 H Est GFR ( Amer) 55 L Est GFR (Non-Af Amer) 45 L Lactic Acid 6.4 H Total Bilirubin 2.2 H Direct Bilirubin 0.7 H Total Protein 5.4 L Albumin 2.9 L 08/17/17 13:50 WBC MCV Plt Count Absolute Neutrophils Absolute Lymphocytes Absolute Monocytes VBG pH 7.22 L Sodium Carbon Dioxide BUN Est GFR ( Amer) Est GFR (Non-Af Amer) Lactic Acid Total Bilirubin Direct Bilirubin Total Protein Albumin - Diagnostic Test Radiology reviewed: Image reviewed - 1 view chest x-ray notes no significant abnormality, Reports reviewed Critical Care Note - Critical Care Note Total time excluding time spent on procedures (mins): 37 Comments: 37 minutes of critical care time spent in direct contact evaluating and reevaluating the patient, treating symptoms, reviewing labs and studies and speaking with family and consultants excluding any procedures Discharge - Discharge Clinical Impression: Lactic acidosis, Respiratory distress Hypotension Qualifiers: Hypotension type: unspecified hypotension type Qualified Code(s): I95.9 - Hypotension, unspecified Condition: Fair Disposition: ADMITTED INPATIENT Admitting Provider: [facility] Unit Admitted: IMCU Referrals: NOLAN KIRKPATRICK MD [Primary Care Provider] - Follow up as needed
[2017-08-17 14:44] LABS: ANISOCYTOSIS SLIGHT; PLATELET COMMENT DECREASED; PLATELET COUNT 67 10^3/uL (150-450); WHITE BLOOD COUNT 0.5 10^3/uL (4.0-10.5)
[2017-08-17 14:49] LABS: ALANINE AMINOTRANSFERASE 29 U/L (9-52); ALBUMIN 2.9 g/dL (3.5-5.0); ALKALINE PHOSPHATASE 42 U/L (38-126); ANION GAP 17 (5-19); ASPARTATE AMINO TRANSFERASE 36 U/L (14-36); BILIRUBIN,DIRECT 0.7 mg/dL (0.0-0.4); BILIRUBIN,TOTAL 2.2 mg/dL (0.2-1.3); BLOOD UREA NITROGEN 28 mg/dL (7-20); CALCIUM 8.8 mg/dL (8.4-10.2); CARBON DIOXIDE 19 mmol/L (22-30); CHLORIDE 99 mmol/L (98-107); GLUCOSE 110 mg/dL (75-110); POTASSIUM 3.7 mmol/L (3.6-5.0); SODIUM 134.6 mmol/L (137-145); TOTAL PROTEIN 5.4 g/dL (6.3-8.2)
[2017-08-17] MEDS ORDERED: VANCOMYCIN HCL INJ 1000 MG VIAL IV ONE (14:49)
[2017-08-17] MEDS ORDERED: AZTREONAM INJ 1 GM VIAL IV ONE (14:49)
--- NOTE | 2017-08-17 14:50 | RADIOLOGY REPORT (SQ) ---
EXAM DESCRIPTION: CHEST SINGLE VIEW COMPLETED DATE/TIME: 08/17/2017 2:39 pm REASON FOR STUDY: lung ca, hypoxemia COMPARISON: CT chest 07/02/2017 AP chest 07/03/2017, 07/05/2017 EXAM PARAMETERS: NUMBER OF VIEWS: One view. TECHNIQUE: Single frontal radiographic view of the chest acquired. RADIATION DOSE: NA LIMITATIONS: None. FINDINGS: LUNGS AND PLEURA: Patient has a small caliber silicone right chest tube or PleurX catheter over the right lower chest. No pneumothorax. No pleural effusion. No right-sided focal infiltrate s. Left lung well inflated and clear. MEDIASTINUM AND HILAR STRUCTURES: Fullness along the right hilum and subcarinal region is unchanged f rom chest CT 07/02/2017. HEART AND VASCULAR STRUCTURES: Heart normal in size. Normal vasculature. BONES: No acute findings. HARDWARE: Right permanent central line tip superior vena cava. Right-sided PleurX catheter over the right lower chest OTHER: No other significant finding. IMPRESSION: No acute changes TECHNICAL DOCUMENTATION: JOB ID: [id number] [employer]- All Rights Reserved Reading location - IP/workstation name: [email or web address]
[2017-08-17 14:53] LABS: INTERNATIONAL RATION (INR) 1.04; PROTHROMBIN TIME 14.1 SEC (11.4-15.4)
--- NOTE | 2017-08-17 16:03 | EKG REPORT ---
SEVERITY:- ABNORMAL ECG - SINUS RHYTHM BORDERLINE PROLONGED QT INTERVAL OLD ANTEROSEPTAL AR. : Confirmed by: Devonte Hargrove MD 17-Aug-2017 16:02:58
[2017-08-17] MEDS: HYDROMORPHONE HCL INJ/PF 2 MG/ML AMPULE IV PRN (18:00)
[2017-08-17] MEDS ORDERED: VANCOMYCIN HCL 0 MG in DEXTROSE 5%-WATER 250 ML IV NR (18:00)
[2017-08-17] MEDS ORDERED: HYDROMORPHONE HCL INJ/PF 2 MG/ML AMPULE IV PRN (18:01)
[2017-08-17 18:57] LABS: LIPASE 111.3 U/L (23-300); PHOSPHORUS 6.4 mg/dL (2.5-4.5)
[2017-08-17 19:13] LABS: FREE T4 (FREE THYROXINE) 1.54 ng/dL (0.78-2.19)
[2017-08-17 19:21] LABS: ARTERIAL BLOOD H2CO3 1.27 mmol/L (1.05-1.35); ARTERIAL BLOOD HCO3 17.8 mmol/L (20-26); ARTERIAL BLOOD O2 SATURATION 92.4 % (94-98); ARTERIAL BLOOD PCO2 42.1 mmHg (35-45); ARTERIAL BLOOD PH 7.24 (7.35-7.45); ARTERIAL BLOOD PO2 73.8 mmHg (80-100); ARTERIAL BLOOD TOTAL CO2 19.1 mmol/L (21-25)
[2017-08-17 19:22] LABS: ARTERIAL BLOOD FIO2 4L
[2017-08-17 19:28] LABS: THYROID STIMULATING HORMONE 2.9 uIU/mL (0.47-4.68)
[2017-08-17] MEDS ORDERED: AZTREONAM 1 GM in DEXTROSE 5%-WATER 50 ML IV ONE (19:30)
[2017-08-17] MEDS ORDERED: DOPAMINE HCL/DEXTROSE 5%-WATER 800 MG/250 ML RTUINJ IV PRN ×2 (19:42→20:30)
[2017-08-17] MEDS ORDERED: DOPAMINE HCL/DEXTROSE 5%-WATER 800 MG/250 ML RTUINJ IV ONE (20:35)
--- NOTE | 2017-08-17 21:06 | PDOC H&P ---
History of Present Illness Admission Date/PCP: 08/17/17 15:11 NOLAN KIRKPATRICK MD History of Present Illness: MARSHA DUMAS is a 72 year old female, She recently diagnosed with small cell lung cancer on active chemotherapy and radiation therapy she presented to the emergency room for evaluation of altered mental status and low blood pressure. In the emergency room she was found to have absolute neutropenia with severe lactic acidosis and hypotension. She denies any fever or chills, the last time she was admitted in this hospital she was found to have a large right hilar mass with a large right pleural effusion/chylothorax, a chest tube was inserted and she was transferred to [facility] where she was ultimately diagnosed with small cell lung cancer and she presently follow with oncology in [place].Patient was seen by the bedside, she is slightly confused, she has lost a lot of weight, the blood pressure is very low and the blood gas was consistent with increased anion gap metabolic acidosis, the chest x-ray was normal. She has elevated liver enzymes, she may need a CT scan of the abdomen and pelvis with contrast, she is presently hemodynamically unstable and the focus treatment is to stabilize blood pressure and then subsequently get a CT scan of the abdomen and pelvis Past Medical History Cardiac Medical History: Reports: Hypertension Pulmonary Medical History: Reports: Chronic Obstructive Pulmonary Disease (COPD) Malignancy Medical History: Reports: Lung Cancer - Metastatic small cell lung cancer, with brain metastases, Other - Small cell lung cancer GI Medical History: Reports: Gastroesophageal Reflux Disease Psychiatric Medical History: Reports: Depression Social History Smoking Status: Former Smoker Cigarettes Packs Per Day: 0.5 Number of Years Smokin Last Time Smoked: 60 days ago Frequency of Alcohol Use: None Hx Recreational Drug Use: No Drugs: None Hx Prescription Drug Abuse: No - Advance Directive Resuscitation Status: Full Code Family History Family History: Reviewed & Not Pertinent Parental Family History Reviewed: Yes Children Family History Reviewed: Yes Sibling(s) Family History Reviewed.: Yes Medication/Allergy Home Medications: Bupropion HCl [Wellbutrin Xl 300mg 24hr Tablet] 150 mg PO DAILY 08/17/17 Dexamethasone 2 mg PO Q12 08/17/17 Latanoprost [Xalatan 0.005% Oph Soln 2.5 ml] 1 drop OU QHS 08/17/17 Memantine HCl [Namenda 10 mg Tablet] 10 mg PO Q12 08/17/17 Omeprazole 40 mg PO DAILY 08/17/17 Prochlorperazine Maleate [Compazine 10 mg Tablet] 10 mg PO Q6HP PRN 08/17/17 Propranolol HCl [Propranolol HCl ER] 80 mg PO DAILY 08/17/17 Tramadol HCl [Ultram 50 mg Tablet] 50 mg PO Q8HP PRN 08/17/17 Allergies/Adverse Reactions: Penicillins Allergy (Intermediate, Verified 11/30/13 13:53) alendronate sodium [From Fosamax] Allergy (Unknown, Verified 11/30/13 13:53) rosuvastatin calcium [From Crestor] Allergy (Unknown, Verified 11/30/13 13:53) Guacamole Allergy (Severe, Uncoded 11/30/13 13:53) Swelling of Throat Review of Systems Constitutional: ABSENT: chills, fever(s), headache(s), weight gain, weight loss Eyes: ABSENT: visual disturbances Ears: ABSENT: hearing changes Cardiovascular: ABSENT: chest pain, dyspnea on exertion, edema, orthropnea, palpitations Respiratory: ABSENT: cough, hemoptysis Gastrointestinal: PRESENT: abdominal pain. ABSENT: constipation, diarrhea, hematemesis, hematochezia, nausea, vomiting Genitourinary: ABSENT: dysuria, hematuria Musculoskeletal: ABSENT: joint swelling Integumentary: ABSENT: rash, wounds Neurological: PRESENT: confusion. ABSENT: abnormal gait, abnormal speech, dizziness, focal weakness, syncope Psychiatric: ABSENT: anxiety, depression, homidical ideation, suicidal ideation Endocrine: ABSENT: cold intolerance, heat intolerance, menstrual abnormalities, polydipsia, polyuria Hematologic/Lymphatic: ABSENT: easy bleeding, easy bruising, lymphadenopathy Physical Exam Vital Signs: Temp Pulse Resp BP Pulse Ox 97.6 F 80 14 87/43 L 95 08/17/17 18:19 08/17/17 18:19 08/17/17 18:19 08/17/17 18:19 08/17/17 18:19 Intake & Output 08/16/17 08/17/17 08/18/17 06:59 06:59 06:59 Intake Total 400 Balance 400 Weight 54 kg General appearance: PRESENT: thin Eye exam: PRESENT: PERRLA Ear exam: PRESENT: normal external ear exam Mouth exam: PRESENT: moist, tongue midline Neck exam: PRESENT: full ROM Respiratory exam: PRESENT: clear to auscultation carlos Cardiovascular exam: PRESENT: RRR, +S1, +S2 Pulses: PRESENT: normal dorsalis pedis pul, +2 pedal pulses bilateral Vascular exam: PRESENT: normal capillary refill GI/Abdominal exam: PRESENT: normal bowel sounds, soft Rectal exam: PRESENT: deferred Neurological exam: PRESENT: alert, altered, CN II-XII grossly intact Skin exam: PRESENT: dry, intact, warm Results Laboratory Results: 08/17/17 08/17/17 08/17/17 17:54 18:16 18:16 Carbonic Acid HCO3/H2CO3 Ratio ABG pH ABG pCO2 ABG pO2 ABG HCO3 ABG O2 Saturation ABG Base Excess FiO2 Lactic Acid 5.2 H Phosphorus 6.4 H Magnesium 1.7 Ammonia 12.9 Amylase 235 H Lipase 111.3 TSH Free T4 08/17/17 08/17/17 18:16 19:05 Carbonic Acid 1.27 HCO3/H2CO3 Ratio 14:1 ABG pH 7.24 L ABG pCO2 42.1 ABG pO2 73.8 L ABG HCO3 17.8 L ABG O2 Saturation 92.4 L ABG Base Excess -9.0 FiO2 4L Lactic Acid Phosphorus Magnesium Ammonia Amylase Lipase TSH 2.90 Free T4 1.54 08/17/17 08/17/17 08/17/17 18:16 18:16 18:16 Creatine Kinase < 20 L Troponin I < 0.012 NT-Pro-B Natriuret Pep 4080 H Impressions: Chest X-Ray 08/17/17 13:43 IMPRESSION: No acute changes Assessment & Plan - Diagnosis (1) Sepsis Qualifiers: Sepsis type: sepsis due to unspecified organism Qualified Code(s): A41.9 - Sepsis, unspecified organism Is this a current diagnosis for this admission?: Yes Plan: She will empirically the be treated with IV antibiotic to cover MRSA, gram- negative organisms (2) Metabolic acidosis Is this a current diagnosis for this admission?: Yes (3) Small cell lung cancer Is this a current diagnosis for this admission?: Yes (4) Chemotherapy-induced neutropenia Is this a current diagnosis for this admission?: Yes (5) Hypotension Qualifiers: Hypotension type: unspecified hypotension type Qualified Code(s): I95.9 - Hypotension, unspecified Is this a current diagnosis for this admission?: Yes Plan: Start IV fluids with normal saline and also intravenous vasopressors, norepinephrine and vasopressin - Time Time Spent: Greater than 70 Minutes
[2017-08-17] MEDS ORDERED: DEXTROSE 5%-WATER 250 ML with NOREPINEPHRINE BITARTRATE 4 MG IV PRN ×2 (21:44)
[2017-08-17 22:33] LABS: PARTIAL THROMBOPLASTIN TIME 41.3 SEC (23.5-35.8)
[2017-08-17 22:39] LABS: INTERNATIONAL RATION (INR) 1.79
[2017-08-17 22:40] LABS: PROTHROMBIN TIME 21.7 SEC (11.4-15.4)
[2017-08-18 00:05] LABS: APPEARANCE,URINE SLIGHTLY-CLOUDY; BILIRUBIN,URINE NEGATIVE (NEGATIVE); COLOR,URINE YELLOW; GLUCOSE, URINE NEGATIVE (NEGATIVE); KETONES,URINE NEGATIVE (NEGATIVE); LEUKOCYTE ESTERASE,URINE NEGATIVE (NEGATIVE); NITRITE,URINE NEGATIVE (NEGATIVE); PROTEIN,URINE 30 mg/dL (NEGATIVE); URINE SPECIFIC GRAVITY 1.012
[2017-08-18] MEDS ORDERED: VANCOMYCIN HCL INJ 500 MG VIAL ONE (00:06)
[2017-08-18 00:21] LABS: URINE AMPHETAMINES SCREEN NEGATIVE; URINE BARBITURATES SCREEN NEGATIVE; URINE BENZODIAZEPINES SCREEN NEGATIVE; URINE COCAINE SCREEN NEGATIVE; URINE MARIJUANA (THC) SCREEN NEGATIVE; URINE METHADONE SCREEN NEGATIVE; URINE PHENCYCLIDINE SCREEN NEGATIVE
[2017-08-18] MEDS: VANCOMYCIN HCL 500 MG in DEXTROSE 5%-WATER 100 ML IV SCH ×2 (00:41→00:46)
[2017-08-18] MEDS: HYDROMORPHONE HCL INJ/PF 2 MG/ML AMPULE IV PRN ×4 (00:45→19:27)
[2017-08-18] MEDS ORDERED: AZTREONAM INJ 1 GM VIAL ONE (02:40)
[2017-08-18] MEDS: AZTREONAM 1 GM in DEXTROSE 5%-WATER 50 ML IV SCH ×3 (02:48→18:34)
[2017-08-18] MEDS: NORMAL SALINE 1000 ML 1,000 ML IV PRN ×2 (04:09→11:37)
[2017-08-18] MEDS ORDERED: AZTREONAM 1 GM in DEXTROSE 5%-WATER 50 ML IV SCH (06:00)
[2017-08-18 06:41] LABS: ABSOLUTE LYMPHOCYTES (AUTO) 0.1 10^3/uL (0.5-4.7); ABSOLUTE NEUT (AUTO) 0.5 10^3/uL (1.7-8.2); EOSINOPHILS % (AUTO) 0.2 % (0-6); HEMATOCRIT 37.4 % (36.0-47.0); HEMOGLOBIN 12.3 g/dL (12.0-15.5); LYMPHOCYTES % (AUTO) 19.9 % (13-45); MEAN CORPUSCULAR HEMOGLOBIN 32.5 pg (27.0-33.4); MEAN CORPUSCULAR HGB CONC 32.9 g/dL (32.0-36.0); MEAN CORPUSCULAR VOLUME 99 fl (80-97); MONOCYTES % (AUTO) 5.9 % (3-13); RED BLOOD COUNT 3.79 10^6/uL (3.72-5.28); TOTAL CELLS COUNTED % (AUTO) 100 %
[2017-08-18 06:55] LABS: ALBUMIN 2.5 g/dL (3.5-5.0); ALKALINE PHOSPHATASE 43 U/L (38-126); ANION GAP 11 (5-19); BILIRUBIN,DIRECT 2.9 mg/dL (0.0-0.4); BLOOD UREA NITROGEN 29 mg/dL (7-20); CALCIUM 8.1 mg/dL (8.4-10.2); CARBON DIOXIDE 21 mmol/L (22-30); CHLORIDE 106 mmol/L (98-107); CHOLESTEROL 94.13 mg/dL (0-200); CREATINE KINASE 45 U/L (30-135); GLUCOSE 50 mg/dL (75-110); SODIUM 137.5 mmol/L (137-145); TOTAL PROTEIN 4.7 g/dL (6.3-8.2); TRIGLYCERIDES 45 mg/dL (<150)
[2017-08-18 07:12] LABS: DIRECT LDL < 30 mg/dL (<100); POTASSIUM 5.2 mmol/L (3.6-5.0)
[2017-08-18 07:13] LABS: BILIRUBIN,TOTAL 4.9 mg/dL (0.2-1.3)
[2017-08-18 07:19] LABS: ALANINE AMINOTRANSFERASE 6823 U/L (9-52); ASPARTATE AMINO TRANSFERASE 6621 U/L (14-36)
[2017-08-18 08:00] LABS: WHITE BLOOD COUNT 0.6 10^3/uL (4.0-10.5)
[2017-08-18 08:01] LABS: PLATELET COUNT 36 10^3/uL (150-450)
[2017-08-18] MEDS ORDERED: NOREPINEPHRINE BITARTRATE INJ/PF 4 MG/4 ML SDV IV ONE ×2 (08:56→17:30)
[2017-08-18] MEDS ORDERED: SUCCINYLCHOLINE CHLORIDE INJ 200 MG/10 ML VIAL ONE (09:12)
[2017-08-18] MEDS ORDERED: DEXTROSE 50%-WATER 25 GM/50 ML DISP.SYRIN IV ONE (12:03)
[2017-08-18 12:56] LABS: ARTERIAL BLOOD FIO2 3L; ARTERIAL BLOOD H2CO3 1.46 mmol/L (1.05-1.35); ARTERIAL BLOOD HCO3 16.7 mmol/L (20-26); ARTERIAL BLOOD O2 SATURATION 90.5 % (94-98); ARTERIAL BLOOD PCO2 48.5 mmHg (35-45); ARTERIAL BLOOD PO2 74.2 mmHg (80-100); ARTERIAL BLOOD TOTAL CO2 18.2 mmol/L (21-25)
[2017-08-18 12:57] LABS: ARTERIAL BLOOD PH 7.16 (7.35-7.45)
[2017-08-18] MEDS ORDERED: DEXTROSE 5%-WATER 1000 ML 1,000 ML with SODIUM BICARBONATE 50 MEQ IV PRN ×2 (13:10)
[2017-08-18] MEDS ORDERED: SODIUM BICARBONATE 8.4% INJ 50 MEQ/50 ML DISP.SYRIN ONE (13:17)
[2017-08-18] MEDS ORDERED: VASOPRESSIN INJ 20 UNIT/1 ML VIAL ONE (13:32)
[2017-08-18] MEDS ORDERED: DEXTROSE 5%-WATER 250 ML with VASOPRESSIN 100 UNIT IV PRN ×2 (13:33)
[2017-08-18] MEDS ORDERED: PROPOFOL 100 ML IV ONE (13:36)
[2017-08-18] MEDS ORDERED: PHARMACY COMMUNICATION ORDER MC NR (13:45)
[2017-08-18] MEDS ORDERED: PROPOFOL INJ 200 MG/20 ML VIAL IV ONE (13:58)
--- NOTE | 2017-08-18 14:13 | RADIOLOGY REPORT (SQ) ---
EXAM DESCRIPTION: CHEST SINGLE VIEW COMPLETED DATE/TIME: 08/18/2017 2:02 pm REASON FOR STUDY: sepsis / ET Tube Placement COMPARISON: 08/17/2017 NUMBER OF VIEWS: One view. TECHNIQUE: Single frontal radiographic image of the chest acquired. LIMITATIONS: None. FINDINGS: LUNGS AND PLEURA: Right pleural effusion and associated airspace disease not significantly changed. No pneumothorax. MEDIASTINUM AND HEART: Stable heart size and mediastinal structures. SUPPORT DEVICES: Endotracheal tube tip about 2 cm above the jailene. Nasogastric tube tip in the stom ach. Unchanged position of right-sided port. BONY STRUCTURES: No acute findings. HARDWARE: None. OTHER: No other significant finding. IMPRESSION: Satisfactory position of endotracheal tube. No pneumothorax. Reading location - IP/workstation name: [email or web address]
[2017-08-18 14:33] LABS: ARTERIAL BLOOD BASE EXCESS -11.3 mmol/L; ARTERIAL BLOOD H2CO3 1.58 mmol/L (1.05-1.35); ARTERIAL BLOOD HCO3 17.5 mmol/L (20-26); ARTERIAL BLOOD O2 SATURATION 90.5 % (94-98); ARTERIAL BLOOD PCO2 52.4 mmHg (35-45); ARTERIAL BLOOD PO2 75.6 mmHg (80-100); ARTERIAL BLOOD TOTAL CO2 19.1 mmol/L (21-25)
[2017-08-18 14:34] LABS: ARTERIAL BLOOD FIO2 40%
[2017-08-18 14:36] LABS: ARTERIAL BLOOD PH 7.14 (7.35-7.45)
[2017-08-18] MEDS ORDERED: PROPOFOL 100 ML IV PRN (15:19)
[2017-08-18 16:25] LABS: ARTERIAL BLOOD BASE EXCESS -10.3 mmol/L; ARTERIAL BLOOD H2CO3 1.05 mmol/L (1.05-1.35); ARTERIAL BLOOD HCO3 15.6 mmol/L (20-26); ARTERIAL BLOOD O2 SATURATION 96.5 % (94-98); ARTERIAL BLOOD PH 7.27 (7.35-7.45); ARTERIAL BLOOD PO2 96.3 mmHg (80-100); ARTERIAL BLOOD TOTAL CO2 16.7 mmol/L (21-25)
[2017-08-18 16:26] LABS: ARTERIAL BLOOD FIO2 40%
[2017-08-18 18:24] LABS: ARTERIAL BLOOD BASE EXCESS -10.9 mmol/L; ARTERIAL BLOOD H2CO3 0.84 mmol/L (1.05-1.35); ARTERIAL BLOOD HCO3 13.8 mmol/L (20-26); ARTERIAL BLOOD O2 SATURATION 98.6 % (94-98); ARTERIAL BLOOD PCO2 27.9 mmHg (35-45); ARTERIAL BLOOD PH 7.31 (7.35-7.45); ARTERIAL BLOOD PO2 141.4 mmHg (80-100); ARTERIAL BLOOD TOTAL CO2 14.7 mmol/L (21-25)
[2017-08-18 18:25] LABS: ARTERIAL BLOOD FIO2 40%
[2017-08-18] MEDS ORDERED: FILGRASTIM INJ 300 MCG/1 ML VIAL SUBCUT ONE (19:00)
[2017-08-18] MEDS ORDERED: DEXTROSE 5%-WATER 1000 ML 1,000 ML with SODIUM BICARBONATE 150 MEQ IV PRN ×2 (19:07)
[2017-08-18] MEDS ORDERED: AMIODARONE HCL 150 MG in DEXTROSE 5%-WATER 100 ML IV ONE (20:45)
[2017-08-18] MEDS ORDERED: DEXTROSE 5%-WATER 500 ML with AMIODARONE HCL 900 MG IV PRN ×2 (21:00)
--- NOTE | 2017-08-18 21:36 | PDOC PROGRESS REPORT ---
Subjective Progress Note for:: 08/18/17 Subjective:: Patient's condition deteriorated very rapidly she was extremely lethargic, poorly responsive, a stat ABG showed increase anion gap metabolic acidosis, patient was promptly intubated for airway protection and the fact that she was in septic shock. The blood pressure was low requiring 2 vasopressors, intravenous norepinephrine infusion and also intravenous vasopressin infusion. She was intubated and presently on invasive mechanical ventilation initial vent setting started consultation is obtained from pulmonary Reason For Visit: SEPSIS,ABSOLUTE NEUTROPENIA,METASTATIC SMALL CELL Physical Exam Vital Signs: Temp Pulse Resp BP Pulse Ox 99.5 F 95 0 L 116/67 96 08/18/17 20:00 08/18/17 12:00 08/18/17 20:00 08/18/17 19:57 08/18/17 20:00 Intake & Output 08/17/17 08/18/17 08/19/17 06:59 06:59 06:59 Intake Total 1205 3175 Output Total 1650 715 Balance -445 2460 Weight 50.6 kg General appearance: PRESENT: other - Intubated Eye exam: PRESENT: PERRLA Respiratory exam: PRESENT: decreased breath sounds Cardiovascular exam: PRESENT: +S1, +S2 GI/Abdominal exam: PRESENT: soft Neurological exam: PRESENT: altered Results Laboratory Results: 08/18/17 06:24 08/18/17 06:24 08/17/17 08/18/17 08/18/17 23:45 06:24 06:24 WBC 0.6 L* RBC 3.79 Hgb 12.3 Hct 37.4 MCV 99 H MCH 32.5 MCHC 32.9 RDW 14.0 Plt Count 36 L Seg Neutrophils % 74.0 Lymphocytes % 19.9 Monocytes % 5.9 Eosinophils % 0.2 Basophils % 0.0 Absolute Neutrophils 0.5 L Absolute Lymphocytes 0.1 L Absolute Monocytes 0.0 L Absolute Eosinophils 0.0 Absolute Basophils 0.0 Carbonic Acid HCO3/H2CO3 Ratio ABG pH ABG pCO2 ABG pO2 ABG HCO3 ABG O2 Saturation ABG Base Excess FiO2 Sodium 137.5 Potassium 5.2 H D Chloride 106 Carbon Dioxide 21 L Anion Gap 11 BUN 29 H Creatinine 0.89 Est GFR ( Amer) > 60 Est GFR (Non-Af Amer) > 60 Glucose 50 L Lactic Acid Calcium 8.1 L Total Bilirubin 4.9 H D AST 6621 H ALT 6823 H Alkaline Phosphatase 43 Total Protein 4.7 L Albumin 2.5 L Triglycerides 45 Cholesterol 94.13 LDL Cholesterol Direct < 30 VLDL Cholesterol 9.0 L HDL Cholesterol 53 Urine Color YELLOW Urine Appearance SLIGHTLY-CLOUDY Urine pH 6.0 Ur Specific [place] 1.012 Urine Protein 30 H Urine Glucose (UA) NEGATIVE Urine Ketones NEGATIVE Urine Blood SMALL H Urine Nitrite NEGATIVE Ur Leukocyte Esterase NEGATIVE Urine WBC (Auto) 1 Urine RBC (Auto) 0 08/18/17 08/18/17 08/18/17 12:40 14:15 15:55 WBC RBC Hgb Hct MCV MCH MCHC RDW Plt Count Seg Neutrophils % Lymphocytes % Monocytes % Eosinophils % Basophils % Absolute Neutrophils Absolute Lymphocytes Absolute Monocytes Absolute Eosinophils Absolute Basophils Carbonic Acid 1.46 H 1.58 H 1.05 HCO3/H2CO3 Ratio 11:1 11:1 14:1 ABG pH 7.16 L* 7.14 L* 7.27 L ABG pCO2 48.5 H 52.4 H 35.0 ABG pO2 74.2 L 75.6 L 96.3 ABG HCO3 16.7 L 17.5 L 15.6 L ABG O2 Saturation 90.5 L 90.5 L 96.5 ABG Base Excess -12.0 -11.3 -10.3 FiO2 3L 40% 40% Sodium Potassium Chloride Carbon Dioxide Anion Gap BUN Creatinine Est GFR ( Amer) Est GFR (Non-Af Amer) Glucose Lactic Acid Calcium Total Bilirubin AST ALT Alkaline Phosphatase Total Protein Albumin Triglycerides Cholesterol LDL Cholesterol Direct VLDL Cholesterol HDL Cholesterol Urine Color Urine Appearance Urine pH Ur Specific [place] Urine Protein Urine Glucose (UA) Urine Ketones Urine Blood Urine Nitrite Ur Leukocyte Esterase Urine WBC (Auto) Urine RBC (Auto) 08/18/17 08/18/17 08/18/17 16:30 18:12 20:28 WBC RBC Hgb Hct MCV MCH MCHC RDW Plt Count Seg Neutrophils % Lymphocytes % Monocytes % Eosinophils % Basophils % Absolute Neutrophils Absolute Lymphocytes Absolute Monocytes Absolute Eosinophils Absolute Basophils Carbonic Acid 0.84 L HCO3/H2CO3 Ratio 16:1 ABG pH 7.31 L ABG pCO2 27.9 L ABG pO2 141.4 H ABG HCO3 13.8 L ABG O2 Saturation 98.6 H ABG Base Excess -10.9 FiO2 40% Sodium Potassium Chloride Carbon Dioxide Anion Gap BUN Creatinine Est GFR ( Amer) Est GFR (Non-Af Amer) Glucose Lactic Acid 4.2 H 4.7 H Calcium Total Bilirubin AST ALT Alkaline Phosphatase Total Protein Albumin Triglycerides Cholesterol LDL Cholesterol Direct VLDL Cholesterol HDL Cholesterol Urine Color Urine Appearance Urine pH Ur Specific [place] Urine Protein Urine Glucose (UA) Urine Ketones Urine Blood Urine Nitrite Ur Leukocyte Esterase Urine WBC (Auto) Urine RBC (Auto) 08/17/17 08/17/17 08/17/17 18:16 18:16 18:16 Creatine Kinase < 20 L Troponin I < 0.012 NT-Pro-B Natriuret Pep 4080 H 08/18/17 08/18/17 08/18/17 00:16 00:16 06:24 Creatine Kinase 37 45 Troponin I 0.013 NT-Pro-B Natriuret Pep 08/18/17 06:24 Creatine Kinase Troponin I 0.024 NT-Pro-B Natriuret Pep Impressions: Chest X-Ray 08/18/17 13:49 IMPRESSION: Satisfactory position of endotracheal tube. No pneumothorax. Assessment & Plan - Diagnosis (1) Sepsis Qualifiers: Sepsis type: sepsis due to unspecified organism Qualified Code(s): A41.9 - Sepsis, unspecified organism Is this a current diagnosis for this admission?: Yes (2) Metabolic acidosis Is this a current diagnosis for this admission?: Yes Plan: She has increased anion gap metabolic acidosis partly due to hepatic acidosis she is started on sodium bicarbonate infusion (3) Small cell lung cancer Is this a current diagnosis for this admission?: Yes (4) Chemotherapy-induced neutropenia Is this a current diagnosis for this admission?: Yes (5) Hypotension Qualifiers: Hypotension type: unspecified hypotension type Qualified Code(s): I95.9 - Hypotension, unspecified Is this a current diagnosis for this admission?: Yes (6) Septic shock Is this a current diagnosis for this admission?: Yes Plan: She is on 2 vasopressors, norepinephrine, vasopressin (7) Paroxysmal atrial fibrillation Is this a current diagnosis for this admission?: Yes Plan: Start amiodarone drip (8) Febrile neutropenia Is this a current diagnosis for this admission?: Yes Plan: Give Neupogen
[2017-08-19 00:23] LABS: ARTERIAL BLOOD BASE EXCESS -10.2 mmol/L; ARTERIAL BLOOD H2CO3 0.83 mmol/L (1.05-1.35); ARTERIAL BLOOD HCO3 14.2 mmol/L (20-26); ARTERIAL BLOOD O2 SATURATION 97.1 % (94-98); ARTERIAL BLOOD PCO2 27.5 mmHg (35-45); ARTERIAL BLOOD PH 7.33 (7.35-7.45); ARTERIAL BLOOD PO2 97.2 mmHg (80-100); ARTERIAL BLOOD TOTAL CO2 15.1 mmol/L (21-25)
[2017-08-19 00:27] LABS: ARTERIAL BLOOD FIO2 40%
[2017-08-19 00:31] LABS: ALBUMIN 2.3 g/dL (3.5-5.0); ALKALINE PHOSPHATASE 152 U/L (38-126); ANION GAP 12 (5-19); BILIRUBIN,DIRECT 4.6 mg/dL (0.0-0.4); BILIRUBIN,TOTAL 6.8 mg/dL (0.2-1.3); BLOOD UREA NITROGEN 34 mg/dL (7-20); CALCIUM 7.9 mg/dL (8.4-10.2); CARBON DIOXIDE 18 mmol/L (22-30); CHLORIDE 102 mmol/L (98-107); GLUCOSE 134 mg/dL (75-110); PHOSPHORUS 5.3 mg/dL (2.5-4.5); POTASSIUM 4.7 mmol/L (3.6-5.0); TOTAL PROTEIN 4.6 g/dL (6.3-8.2)
[2017-08-19 00:49] LABS: ALANINE AMINOTRANSFERASE 10647 U/L (9-52)
[2017-08-19 00:58] LABS: ASPARTATE AMINO TRANSFERASE 13633 U/L (14-36)
[2017-08-19] MEDS: AZTREONAM 1 GM in DEXTROSE 5%-WATER 50 ML IV SCH ×2 (03:51→09:42)
[2017-08-19 04:20] LABS: HEMOGLOBIN 11.8 g/dL (12.0-15.5); MEAN CORPUSCULAR HEMOGLOBIN 32.9 pg (27.0-33.4); MEAN CORPUSCULAR HGB CONC 33.6 g/dL (32.0-36.0); MEAN CORPUSCULAR VOLUME 98 fl (80-97); RED BLOOD COUNT 3.57 10^6/uL (3.72-5.28); RED CELL DISTRIBUTION WIDTH 13.9 % (11.5-14.0)
[2017-08-19 04:44] LABS: ABSOLUTE LYMPHOCYTES# (MANUAL) 0.3 10^3/uL (0.5-4.7); ABSOLUTE NEUTROPHILS# (MANUAL) 2.1 10^3/uL (1.7-8.2); ALBUMIN 1.9 g/dL (3.5-5.0); ALKALINE PHOSPHATASE 173 U/L (38-126); ANION GAP 11 (5-19); BAND NEUTROPHILS % (MANUAL) 17 % (3-5); BASOPHILS % (MANUAL) 0 % (0-2); BILIRUBIN,DIRECT 5.6 mg/dL (0.0-0.4); BILIRUBIN,TOTAL 8.4 mg/dL (0.2-1.3); BLOOD UREA NITROGEN 36 mg/dL (7-20); CALCIUM 7.9 mg/dL (8.4-10.2); CARBON DIOXIDE 15 mmol/L (22-30); CHLORIDE 103 mmol/L (98-107); EOSINOPHILS % (MANUAL) 0 % (0-6); GLUCOSE 80 mg/dL (75-110); INTERNATIONAL RATION (INR) 4.15; LYMPHOCYTES % (MANUAL) 11 % (13-45); MONOCYTES % (MANUAL) 2 % (3-13); NUCLEATED RED BLOOD CELLS 12 /100 WBC (0); POTASSIUM 5.1 mmol/L (3.6-5.0); SEGMENTED NEUTROPHILS % (MAN) 70 % (42-78); SODIUM 128.8 mmol/L (137-145); TOTAL CELLS COUNTED 100
[2017-08-19 04:45] LABS: PARTIAL THROMBOPLASTIN TIME 41.1 SEC (23.5-35.8)
[2017-08-19 04:46] LABS: ALANINE AMINOTRANSFERASE 10515 U/L (9-52); ASPARTATE AMINO TRANSFERASE 13875 U/L (14-36)
[2017-08-19 04:52] LABS: BURR CELLS 4+; HOWELL-JOLLY BODIES PRESENT; PLATELET COMMENT DECREASED; PLATELET LARGE PRESENT; POLYCHROMASIA 2+
[2017-08-19 04:55] LABS: PROTHROMBIN TIME 42.1 SEC (11.4-15.4)
[2017-08-19 04:56] LABS: TOXIC GRANULATION 1+; TOXIC VACUOLATION PRESENT
[2017-08-19 05:00] LABS: PLATELET COUNT 12 10^3/uL (150-450)
[2017-08-19 05:05] LABS: WHITE BLOOD COUNT 2.4 10^3/uL (4.0-10.5)
--- NOTE | 2017-08-19 07:58 | RADIOLOGY REPORT (SQ) ---
EXAM DESCRIPTION: CHEST SINGLE VIEW CLINICAL HISTORY: 72 years Female, pna/sepsis COMPARISON: August 18, 2017 NUMBER OF VIEWS/TECHNIQUE: 1/AP LIMITATIONS: None. FINDINGS: Small right basilar opacity-effusion, moderate interstitial markings, normal cardiac silhouette, adequate appearing endotracheal tube, right jugular central line tip at the upper right atrium, and likely adequate enteric tube obscured at its tip. No pneumothorax. No acute bone defect. IMPRESSION: No significant change.
[2017-08-19] MEDS: HYDROMORPHONE HCL INJ/PF 2 MG/ML AMPULE IV PRN (09:37)
--- NOTE | 2017-08-19 09:43 | EKG REPORT ---
SEVERITY:- ABNORMAL ECG - ATRIAL FIBRILLATION LOW VOLTAGE IN FRONTAL LEADS : Confirmed by: Devonte Hargrove MD 19-Aug-2017 09:42:40
[2017-08-19] MEDS ORDERED: DEXTROSE 5%-NORMAL SALINE 1,000 ML IV PRN (11:15)
--- NOTE | 2017-08-19 11:56 | RADIOLOGY REPORT (SQ) ---
EXAM DESCRIPTION: U/S ABDOMEN COMPLETE W/O DOP COMPLETED DATE/TIME: 08/19/2017 11:37 am REASON FOR STUDY: rising LFT/Bilirubin COMPARISON: 07/04/2017 TECHNIQUE: Dynamic and static grayscale images acquired of the abdomen and recorded on PACS. Mercedo tamara selected color Doppler and spectral images recorded. LIMITATIONS: Patient body habitus, bowel gas, and inability to cooperate with the exam FINDINGS: PANCREAS: Not visualized LIVER: Poor visualization. Size is normal. LIVER VASCULATURE: Normal directional flow of the main portal vein. GALLBLADDER: Surgically absent. ULTRASOUND-DETECTED CARABALLO'S SIGN: Not applicable. INTRAHEPATIC DUCTS AND COMMON DUCT: CBD normal caliber. Intrahepatic ducts not well-visualized. INFERIOR VENA CAVA: Not visualized AORTA: Not visualized RIGHT KIDNEY: Normal size. Normal echogenicity. No solid or suspicious masses. No hydronephros is. No calcifications. LEFT KIDNEY: Not visualized SPLEEN: Not visualized PERITONEAL AND PLEURAL SPACES: Small amount of fluid noted in the right upper quadrant and left upper quadrant OTHER: No other significant finding. IMPRESSION: Markedly limited examination with a small amount of fluid noted in the right upper and l eft upper quadrant. TECHNICAL DOCUMENTATION: JOB ID: [id number] [employer]- All Rights Reserved Reading location - IP/workstation name: [email or web address]
[2017-08-19] MEDS ORDERED: PANTOPRAZOLE SODIUM 40 MG VIAL IV SCH (12:00)
[2017-08-19] MEDS ORDERED: NORMAL SALINE 250 ML IV PRN ×2 (13:43)
--- NOTE | 2017-08-19 15:04 | RADIOLOGY REPORT (SQ) ---
EXAM DESCRIPTION: CT ABD/PELVIS NO ORAL OR IV COMPLETED DATE/TIME: 08/19/2017 1:01 pm REASON FOR STUDY: Elevated Liver Enzymes COMPARISON: 07/04/2017 TECHNIQUE: CT scan of the abdomen and pelvis performed without intravenous or oral contrast. Images reviewed with lung, soft tissue, and bone windows. Reconstructed coronal and sagittal MPR images revi ewed. All images stored on PACS. All CT scanners at this facility use dose modulation, iterative reconstruction, and/or weight based d osing when appropriate to reduce radiation dose to as low as reasonably achievable (ALARA). [facility]: Dose Right [facility]: CareDose [facility]: Dose Right [facility]: Teradose 4D [facility]: Smart Circle [facility] RADIATION DOSE: CT Rad equipment meets quality standard of care and radiation dose reduction techniq ues were employed. CTDIvol: 6.8 mGy. DLP: 352 mGy-cm.mGy. LIMITATIONS: None. FINDINGS: LOWER CHEST: Small bilateral pleural effusions right greater than left. Atelectasis at th e right base. NON-CONTRASTED LIVER, SPLEEN, ADRENALS: There is extensive air throughout the portal venous system. This extends to the superior mesenteric vein. No focal masses. PANCREAS: No masses. No peripancreatic inflammatory changes. GALLBLADDER: Surgically absent. RIGHT KIDNEY AND URETER: No suspicious masses. Assessment limited by lack of IV contrast. No signif icant calcifications. No hydronephrosis or hydroureter. LEFT KIDNEY AND URETER: No suspicious masses. Assessment limited by lack of IV contrast. No signifi cant calcifications. No hydronephrosis or hydroureter. AORTA AND RETROPERITONEUM: No aneurysm. No retroperitoneal masses or adenopathy. Extensive vascular calcification. BOWEL AND PERITONEAL CAVITY: There is extensive air in the bowel wall with small areas of free air. Finding highly suspicious for ischemic colitis and bowel infarction. Free fluid in the abdomen. APPENDIX: Not visualized. PELVIS, BLADDER, AND ABDOMINAL WALL:Free fluid. Sidhu catheter in the bladder. BONES: Degenerative changes. OTHER: None IMPRESSION: Bowel ischemia and necrosis with the air in the bowel wall extending as air into the por parrish venous system and superior mesenteric vein. Generalized ascites. Small bilateral pleural effusions COMMENT: This report was called to Komal at14:57 on 08/19/2017. Bowel necrosis with portal venous air. Quality ID # [id number]: Final reports with documentation of one or more dose reduction techniques (e.g., Au tomated exposure control, adjustment of the mA and/or kV according to patient size, use of iterative reconstruction technique) TECHNICAL DOCUMENTATION: JOB ID: [id number] [employer]- All Rights Reserved Reading location - IP/workstation name: [email or web address]
[2017-08-19] MEDS ORDERED: HYDROMORPHONE HCL INJ/PF 2 MG/ML AMPULE IV PRN (15:47)
--- NOTE | 2017-08-19 15:55 | PDOC PROGRESS REPORT ---
Subjective Progress Note for:: 08/19/17 Subjective:: Patient was seen by the bedside, the liver enzymes are, CT scan of the severely elevated abdomen and pelvis with contrast was done he showed extensive air throughout the portal venous system this extends to the superior mesenteric vein there is extensive air in the bile wall with small areas of free air this is consistent with bowel ischemia and necrosis with air in the bowel wall also found was generalized ascites. Patient in septic shock, she has background metastatic small cell lung cancer, there is associated severe neutropenia and thrombocytopenia. I spoke to family about patient's condition and the need to transition care to comfort care because patient will not do well, family is in agreement with this plan of care Reason For Visit: SEPSIS,ABSOLUTE NEUTROPENIA,METASTATIC SMALL CELL Physical Exam Vital Signs: Temp Pulse Resp BP Pulse Ox 98.6 F 66 24 H 112/98 H 100 08/19/17 14:00 08/19/17 14:00 08/19/17 14:18 08/19/17 14:18 08/19/17 14:18 Intake & Output 08/18/17 08/19/17 08/20/17 06:59 06:59 06:59 Intake Total 1205 5407 Output Total 1650 1135 265 Balance -445 4272 -265 Weight 50.6 kg 54.5 kg Respiratory exam: PRESENT: decreased breath sounds Cardiovascular exam: PRESENT: +S1, +S2 GI/Abdominal exam: PRESENT: soft Results Laboratory Results: 08/19/17 04:08 08/19/17 04:08 08/18/17 08/18/17 08/18/17 15:55 16:30 18:12 WBC RBC Hgb Hct MCV MCH MCHC RDW Plt Count Seg Neutrophils % Lymphocytes % Monocytes % Eosinophils % Basophils % Absolute Neutrophils Absolute Lymphocytes Absolute Monocytes Absolute Eosinophils Absolute Basophils Carbonic Acid 1.05 0.84 L HCO3/H2CO3 Ratio 14:1 16:1 ABG pH 7.27 L 7.31 L ABG pCO2 35.0 27.9 L ABG pO2 96.3 141.4 H ABG HCO3 15.6 L 13.8 L ABG O2 Saturation 96.5 98.6 H ABG Base Excess -10.3 -10.9 FiO2 40% 40% Sodium Potassium Chloride Carbon Dioxide Anion Gap BUN Creatinine Est GFR ( Amer) Est GFR (Non-Af Amer) Glucose Lactic Acid 4.2 H Calcium Phosphorus Magnesium Total Bilirubin AST ALT Alkaline Phosphatase Total Protein Albumin Blood Type 08/18/17 08/19/17 08/19/17 20:28 00:00 00:12 WBC RBC Hgb Hct MCV MCH MCHC RDW Plt Count Seg Neutrophils % Lymphocytes % Monocytes % Eosinophils % Basophils % Absolute Neutrophils Absolute Lymphocytes Absolute Monocytes Absolute Eosinophils Absolute Basophils Carbonic Acid 0.83 L HCO3/H2CO3 Ratio 17:1 ABG pH 7.33 L ABG pCO2 27.5 L ABG pO2 97.2 ABG HCO3 14.2 L ABG O2 Saturation 97.1 ABG Base Excess -10.2 FiO2 40% Sodium 132.0 L Potassium 4.7 Chloride 102 Carbon Dioxide 18 L Anion Gap 12 BUN 34 H Creatinine 0.97 Est GFR ( Amer) > 60 Est GFR (Non-Af Amer) 57 L Glucose 134 H Lactic Acid 4.7 H Calcium 7.9 L Phosphorus 5.3 H Magnesium 1.8 Total Bilirubin 6.8 H AST 71909 H ALT 96783 H Alkaline Phosphatase 152 H Total Protein 4.6 L Albumin 2.3 L Blood Type 08/19/17 08/19/17 08/19/17 04:08 04:08 14:00 WBC 2.4 L D RBC 3.57 L Hgb 11.8 L Hct 35.0 L MCV 98 H MCH 32.9 MCHC 33.6 RDW 13.9 Plt Count 12 L* D Seg Neutrophils % Not Reportable Lymphocytes % Not Reportable Monocytes % Not Reportable Eosinophils % Not Reportable Basophils % Not Reportable Absolute Neutrophils Not Reportable Absolute Lymphocytes Not Reportable Absolute Monocytes Not Reportable Absolute Eosinophils Not Reportable Absolute Basophils Not Reportable Carbonic Acid HCO3/H2CO3 Ratio ABG pH ABG pCO2 ABG pO2 ABG HCO3 ABG O2 Saturation ABG Base Excess FiO2 Sodium 128.8 L Potassium 5.1 H Chloride 103 Carbon Dioxide 15 L Anion Gap 11 BUN 36 H Creatinine 1.15 Est GFR ( Amer) 56 L Est GFR (Non-Af Amer) 47 L Glucose 80 Lactic Acid Calcium 7.9 L Phosphorus Magnesium 1.9 Total Bilirubin 8.4 H AST 35302 H ALT 69583 H Alkaline Phosphatase 173 H Total Protein 4.0 L Albumin 1.9 L Blood Type A POSITIVE 08/17/17 08/17/17 08/17/17 18:16 18:16 18:16 Creatine Kinase < 20 L Troponin I < 0.012 NT-Pro-B Natriuret Pep 4080 H 08/18/17 08/18/17 08/18/17 00:16 00:16 06:24 Creatine Kinase 37 45 Troponin I 0.013 NT-Pro-B Natriuret Pep 08/18/17 08/19/17 06:24 04:08 Creatine Kinase Troponin I 0.024 NT-Pro-B Natriuret Pep 00172 H Impressions: Abdomen Ultrasound 08/19/17 00:00 IMPRESSION: Markedly limited examination with a small amount of fluid noted in the right upper and left upper quadrant. Chest X-Ray 08/19/17 06:00 IMPRESSION: No significant change. Abdomen/Pelvis CT 08/19/17 12:23 IMPRESSION: Bowel ischemia and necrosis with the air in the bowel wall extending as air into the portal venous system and superior mesenteric vein. Generalized ascites. Small bilateral pleural effusions Assessment & Plan - Diagnosis (1) Sepsis Qualifiers: Sepsis type: sepsis due to unspecified organism Qualified Code(s): A41.9 - Sepsis, unspecified organism Is this a current diagnosis for this admission?: Yes (2) Metabolic acidosis Is this a current diagnosis for this admission?: Yes (3) Small cell lung cancer Is this a current diagnosis for this admission?: Yes (4) Chemotherapy-induced neutropenia Is this a current diagnosis for this admission?: Yes (5) Hypotension Qualifiers: Hypotension type: unspecified hypotension type Qualified Code(s): I95.9 - Hypotension, unspecified Is this a current diagnosis for this admission?: Yes (6) Ischemic necrosis of small bowel Is this a current diagnosis for this admission?: Yes (7) Thrombocytopenia Is this a current diagnosis for this admission?: Yes - Plan Summary Plan Summary: We will transition care to comfort care
[2017-08-19] MEDS ORDERED: LORAZEPAM INJ 2 MG/1 ML VIAL IV PRN (15:58)
[2017-08-19 16:11] VITALS: BP 118/80
--- NOTE | 2017-08-19 16:25 | PDOC PROGRESS REPORT ---
Subjective Progress Note for:: 08/19/17 Subjective:: intubated and sedated Reason For Visit: SEPSIS,ABSOLUTE NEUTROPENIA,METASTATIC SMALL CELL Physical Exam Vital Signs: Temp Pulse Resp BP Pulse Ox 100.2 F 72 21 H 113/86 H 100 08/19/17 07:55 08/19/17 08:00 08/19/17 08:00 08/19/17 07:57 08/19/17 08:00 Intake & Output 08/18/17 08/19/17 08/20/17 06:59 06:59 06:59 Intake Total 1205 5407 Output Total 1650 1135 Balance -445 4272 Weight 50.6 kg 54.5 kg General appearance: PRESENT: no acute distress, thin, well-nourished. ABSENT: cooperative, disheveled Head exam: PRESENT: atraumatic, normocephalic Eye exam: PRESENT: conjunctiva pale. ABSENT: EOMI, nystagmus, periorbital swelling, scleral icterus Mouth exam: PRESENT: dry mucosa, neck supple, tongue midline, other - ET tube Neck exam: ABSENT: carotid bruit, JVD, lymphadenopathy, thyromegaly, tracheal deviation, tracheostomy Respiratory exam: PRESENT: decreased breath sounds, prolonged expiratory phas, rales, rhonchi, symmetrical, unlabored, wheezes. ABSENT: retraction, stridor, tachypnea Cardiovascular exam: PRESENT: RRR, +S1, +S2, tachycardia Pulses: PRESENT: normal radial pulses GI/Abdominal exam: PRESENT: distended, firm Extremities exam: ABSENT: calf tenderness, clubbing, full ROM, joint swelling Musculoskeletal exam: ABSENT: ambulatory, deformity, dislocation, full ROM Neurological exam: ABSENT: awake, oriented to person Skin exam: PRESENT: dry, warm Results Laboratory Results: 08/19/17 04:08 08/19/17 04:08 08/18/17 08/18/17 08/18/17 12:40 14:15 15:55 WBC RBC Hgb Hct MCV MCH MCHC RDW Plt Count Seg Neutrophils % Lymphocytes % Monocytes % Eosinophils % Basophils % Absolute Neutrophils Absolute Lymphocytes Absolute Monocytes Absolute Eosinophils Absolute Basophils Carbonic Acid 1.46 H 1.58 H 1.05 HCO3/H2CO3 Ratio 11:1 11:1 14:1 ABG pH 7.16 L* 7.14 L* 7.27 L ABG pCO2 48.5 H 52.4 H 35.0 ABG pO2 74.2 L 75.6 L 96.3 ABG HCO3 16.7 L 17.5 L 15.6 L ABG O2 Saturation 90.5 L 90.5 L 96.5 ABG Base Excess -12.0 -11.3 -10.3 FiO2 3L 40% 40% Sodium Potassium Chloride Carbon Dioxide Anion Gap BUN Creatinine Est GFR ( Amer) Est GFR (Non-Af Amer) Glucose Lactic Acid Calcium Phosphorus Magnesium Total Bilirubin AST ALT Alkaline Phosphatase Total Protein Albumin 08/18/17 08/18/17 08/18/17 16:30 18:12 20:28 WBC RBC Hgb Hct MCV MCH MCHC RDW Plt Count Seg Neutrophils % Lymphocytes % Monocytes % Eosinophils % Basophils % Absolute Neutrophils Absolute Lymphocytes Absolute Monocytes Absolute Eosinophils Absolute Basophils Carbonic Acid 0.84 L HCO3/H2CO3 Ratio 16:1 ABG pH 7.31 L ABG pCO2 27.9 L ABG pO2 141.4 H ABG HCO3 13.8 L ABG O2 Saturation 98.6 H ABG Base Excess -10.9 FiO2 40% Sodium Potassium Chloride Carbon Dioxide Anion Gap BUN Creatinine Est GFR ( Amer) Est GFR (Non-Af Amer) Glucose Lactic Acid 4.2 H 4.7 H Calcium Phosphorus Magnesium Total Bilirubin AST ALT Alkaline Phosphatase Total Protein Albumin 08/19/17 08/19/17 08/19/17 00:00 00:12 04:08 WBC 2.4 L D RBC 3.57 L Hgb 11.8 L Hct 35.0 L MCV 98 H MCH 32.9 MCHC 33.6 RDW 13.9 Plt Count 12 L* D Seg Neutrophils % Not Reportable Lymphocytes % Not Reportable Monocytes % Not Reportable Eosinophils % Not Reportable Basophils % Not Reportable Absolute Neutrophils Not Reportable Absolute Lymphocytes Not Reportable Absolute Monocytes Not Reportable Absolute Eosinophils Not Reportable Absolute Basophils Not Reportable Carbonic Acid 0.83 L HCO3/H2CO3 Ratio 17:1 ABG pH 7.33 L ABG pCO2 27.5 L ABG pO2 97.2 ABG HCO3 14.2 L ABG O2 Saturation 97.1 ABG Base Excess -10.2 FiO2 40% Sodium 132.0 L Potassium 4.7 Chloride 102 Carbon Dioxide 18 L Anion Gap 12 BUN 34 H Creatinine 0.97 Est GFR ( Amer) > 60 Est GFR (Non-Af Amer) 57 L Glucose 134 H Lactic Acid Calcium 7.9 L Phosphorus 5.3 H Magnesium 1.8 Total Bilirubin 6.8 H AST 24972 H ALT 82180 H Alkaline Phosphatase 152 H Total Protein 4.6 L Albumin 2.3 L 08/19/17 04:08 WBC RBC Hgb Hct MCV MCH MCHC RDW Plt Count Seg Neutrophils % Lymphocytes % Monocytes % Eosinophils % Basophils % Absolute Neutrophils Absolute Lymphocytes Absolute Monocytes Absolute Eosinophils Absolute Basophils Carbonic Acid HCO3/H2CO3 Ratio ABG pH ABG pCO2 ABG pO2 ABG HCO3 ABG O2 Saturation ABG Base Excess FiO2 Sodium 128.8 L Potassium 5.1 H Chloride 103 Carbon Dioxide 15 L Anion Gap 11 BUN 36 H Creatinine 1.15 Est GFR ( Amer) 56 L Est GFR (Non-Af Amer) 47 L Glucose 80 Lactic Acid Calcium 7.9 L Phosphorus Magnesium 1.9 Total Bilirubin 8.4 H AST 74663 H ALT 46989 H Alkaline Phosphatase 173 H Total Protein 4.0 L Albumin 1.9 L 08/17/17 08/17/17 08/17/17 18:16 18:16 18:16 Creatine Kinase < 20 L Troponin I < 0.012 NT-Pro-B Natriuret Pep 4080 H 08/18/17 08/18/17 08/18/17 00:16 00:16 06:24 Creatine Kinase 37 45 Troponin I 0.013 NT-Pro-B Natriuret Pep 08/18/17 08/19/17 06:24 04:08 Creatine Kinase Troponin I 0.024 NT-Pro-B Natriuret Pep 50144 H Impressions: Chest X-Ray 08/19/17 06:00 IMPRESSION: No significant change. Assessment & Plan - Diagnosis (1) Thrombocytopenia Is this a current diagnosis for this admission?: Yes Plan: Labs- All tests 24 hr 08/17/17 08/18/17 08/19/17 13:50 06:24 04:08 Plt Count 67 L 36 L 12 L* D (2) Leucopenia Is this a current diagnosis for this admission?: Yes Plan: Labs- All tests 24 hr 08/17/17 08/18/17 08/19/17 13:50 06:24 04:08 WBC 0.5 L* 0.6 L* 2.4 L D Seg Neuts % (Manual) 70 Band Neutrophils % 17 H (3) Septic shock Is this a current diagnosis for this admission?: Yes Plan: Labs- All tests 24 hr 08/19/17 00:00 ABG pH 7.33 L ABG pCO2 27.5 L ABG pO2 97.2 ABG O2 Saturation 97.1 FiO2 40% (5) Sepsis Qualifiers: Sepsis type: sepsis due to unspecified organism Qualified Code(s): A41.9 - Sepsis, unspecified organism Is this a current diagnosis for this admission?: Yes - Time Total Critical Time (Minutes): 50
--- NOTE | 2017-08-19 16:29 | PDOC CONSULTATION ---
Consultation Consult Date: 08/18/17 Attending physician:: NOLAN KIRKPATRICK Consult reason:: resp failure/pna History of Present Illness Admission Date/PCP: 08/17/17 15:11 NOLAN KIRKPATRICK MD History of Present Illness: MARSHA DUMAS is a 72 year old female hx of cancer s/p chemotherapy became septic hypoxic hypotension now intubated and sedated Past Medical History Cardiac Medical History: Reports: Hypertension Pulmonary Medical History: Denies: Tuberculosis Malignancy Medical History: Reports: Other - Small cell lung cancer GI Medical History: Reports: Gastroesophageal Reflux Disease Psychiatric Medical History: Reports: Depression Social History Information Source: [facility] Records Smoking Status: Former Smoker Cigarettes Packs Per Day: 0.5 Number of Years Smokin Last Time Smoked: 60 days ago Frequency of Alcohol Use: None Hx Recreational Drug Use: No Drugs: None Hx Prescription Drug Abuse: No - Advance Directive Resuscitation Status: Full Code Family History Parental Family History Reviewed: No Children Family History Reviewed: No Sibling(s) Family History Reviewed.: No Medication/Allergy Home Medications: Bupropion HCl [Wellbutrin Xl 300mg 24hr Tablet] 150 mg PO DAILY 08/17/17 Dexamethasone 2 mg PO Q12 08/17/17 Latanoprost [Xalatan 0.005% Oph Soln 2.5 ml] 1 drop OU QHS 08/17/17 Memantine HCl [Namenda 10 mg Tablet] 10 mg PO Q12 08/17/17 Omeprazole 40 mg PO DAILY 08/17/17 Prochlorperazine Maleate [Compazine 10 mg Tablet] 10 mg PO Q6HP PRN 08/17/17 Propranolol HCl [Propranolol HCl ER] 80 mg PO DAILY 08/17/17 Tramadol HCl [Ultram 50 mg Tablet] 50 mg PO Q8HP PRN 08/17/17 Allergies/Adverse Reactions: Penicillins Allergy (Intermediate, Verified 11/30/13 13:53) alendronate sodium [From Fosamax] Allergy (Unknown, Verified 11/30/13 13:53) rosuvastatin calcium [From Crestor] Allergy (Unknown, Verified 11/30/13 13:53) Guacamole Allergy (Severe, Uncoded 11/30/13 13:53) Swelling of Throat Review of Systems ROS unobtainable: Due to endotracheal tube Physical Exam Vital Signs: Temp Pulse Resp BP Pulse Ox 97.9 F 83 14 139/83 H 96 08/18/17 10:00 08/18/17 07:00 08/18/17 15:00 08/18/17 14:57 08/18/17 15:00 Intake & Output 08/17/17 08/18/17 08/19/17 06:59 06:59 06:59 Intake Total 1205 Output Total 1650 290 Balance -445 -290 Weight 50.6 kg General appearance: PRESENT: no acute distress, disheveled, thin. ABSENT: cooperative Head exam: PRESENT: atraumatic, normocephalic Eye exam: PRESENT: conjunctiva pale. ABSENT: EOMI, nystagmus, periorbital swelling, scleral icterus Mouth exam: PRESENT: dry mucosa, neck supple, tongue midline, other - ET tube Neck exam: ABSENT: carotid bruit, JVD, lymphadenopathy, thyromegaly, tracheal deviation, tracheostomy Respiratory exam: PRESENT: decreased breath sounds, prolonged expiratory phas, rales, rhonchi, symmetrical, unlabored. ABSENT: retraction, stridor, tachypnea Cardiovascular exam: PRESENT: RRR, +S1, +S2, tachycardia Pulses: PRESENT: normal radial pulses GI/Abdominal exam: PRESENT: firm, rebound Extremities exam: ABSENT: calf tenderness, clubbing, full ROM, joint swelling Musculoskeletal exam: ABSENT: deformity, dislocation, full ROM Neurological exam: ABSENT: awake, oriented to person Skin exam: PRESENT: dry, warm Results Laboratory Results: 08/18/17 06:24 08/18/17 06:24 08/17/17 08/17/17 08/17/17 17:54 18:16 18:16 WBC RBC Hgb Hct MCV MCH MCHC RDW Plt Count Seg Neutrophils % Lymphocytes % Monocytes % Eosinophils % Basophils % Absolute Neutrophils Absolute Lymphocytes Absolute Monocytes Absolute Eosinophils Absolute Basophils Carbonic Acid HCO3/H2CO3 Ratio ABG pH ABG pCO2 ABG pO2 ABG HCO3 ABG O2 Saturation ABG Base Excess FiO2 Sodium Potassium Chloride Carbon Dioxide Anion Gap BUN Creatinine Est GFR ( Amer) Est GFR (Non-Af Amer) Glucose Lactic Acid 5.2 H Calcium Phosphorus 6.4 H Magnesium 1.7 Total Bilirubin AST ALT Alkaline Phosphatase Ammonia 12.9 Total Protein Albumin Triglycerides Cholesterol LDL Cholesterol Direct VLDL Cholesterol HDL Cholesterol Amylase 235 H Lipase 111.3 TSH Free T4 Urine Color Urine Appearance Urine pH Ur Specific [place] Urine Protein Urine Glucose (UA) Urine Ketones Urine Blood Urine Nitrite Ur Leukocyte Esterase Urine WBC (Auto) Urine RBC (Auto) 08/17/17 08/17/17 08/17/17 18:16 19:05 23:45 WBC RBC Hgb Hct MCV MCH MCHC RDW Plt Count Seg Neutrophils % Lymphocytes % Monocytes % Eosinophils % Basophils % Absolute Neutrophils Absolute Lymphocytes Absolute Monocytes Absolute Eosinophils Absolute Basophils Carbonic Acid 1.27 HCO3/H2CO3 Ratio 14:1 ABG pH 7.24 L ABG pCO2 42.1 ABG pO2 73.8 L ABG HCO3 17.8 L ABG O2 Saturation 92.4 L ABG Base Excess -9.0 FiO2 4L Sodium Potassium Chloride Carbon Dioxide Anion Gap BUN Creatinine Est GFR ( Amer) Est GFR (Non-Af Amer) Glucose Lactic Acid Calcium Phosphorus Magnesium Total Bilirubin AST ALT Alkaline Phosphatase Ammonia Total Protein Albumin Triglycerides Cholesterol LDL Cholesterol Direct VLDL Cholesterol HDL Cholesterol Amylase Lipase TSH 2.90 Free T4 1.54 Urine Color YELLOW Urine Appearance SLIGHTLY-CLOUDY Urine pH 6.0 Ur Specific [place] 1.012 Urine Protein 30 H Urine Glucose (UA) NEGATIVE Urine Ketones NEGATIVE Urine Blood SMALL H Urine Nitrite NEGATIVE Ur Leukocyte Esterase NEGATIVE Urine WBC (Auto) 1 Urine RBC (Auto) 0 08/18/17 08/18/17 08/18/17 06:24 06:24 12:40 WBC 0.6 L* RBC 3.79 Hgb 12.3 Hct 37.4 MCV 99 H MCH 32.5 MCHC 32.9 RDW 14.0 Plt Count 36 L Seg Neutrophils % 74.0 Lymphocytes % 19.9 Monocytes % 5.9 Eosinophils % 0.2 Basophils % 0.0 Absolute Neutrophils 0.5 L Absolute Lymphocytes 0.1 L Absolute Monocytes 0.0 L Absolute Eosinophils 0.0 Absolute Basophils 0.0 Carbonic Acid 1.46 H HCO3/H2CO3 Ratio 11:1 ABG pH 7.16 L* ABG pCO2 48.5 H ABG pO2 74.2 L ABG HCO3 16.7 L ABG O2 Saturation 90.5 L ABG Base Excess -12.0 FiO2 3L Sodium 137.5 Potassium 5.2 H D Chloride 106 Carbon Dioxide 21 L Anion Gap 11 BUN 29 H Creatinine 0.89 Est GFR ( Amer) > 60 Est GFR (Non-Af Amer) > 60 Glucose 50 L Lactic Acid Calcium 8.1 L Phosphorus Magnesium Total Bilirubin 4.9 H D AST 6621 H ALT 6823 H Alkaline Phosphatase 43 Ammonia Total Protein 4.7 L Albumin 2.5 L Triglycerides 45 Cholesterol 94.13 LDL Cholesterol Direct < 30 VLDL Cholesterol 9.0 L HDL Cholesterol 53 Amylase Lipase TSH Free T4 Urine Color Urine Appearance Urine pH Ur Specific [place] Urine Protein Urine Glucose (UA) Urine Ketones Urine Blood Urine Nitrite Ur Leukocyte Esterase Urine WBC (Auto) Urine RBC (Auto) 08/18/17 14:15 WBC RBC Hgb Hct MCV MCH MCHC RDW Plt Count Seg Neutrophils % Lymphocytes % Monocytes % Eosinophils % Basophils % Absolute Neutrophils Absolute Lymphocytes Absolute Monocytes Absolute Eosinophils Absolute Basophils Carbonic Acid 1.58 H HCO3/H2CO3 Ratio 11:1 ABG pH 7.14 L* ABG pCO2 52.4 H ABG pO2 75.6 L ABG HCO3 17.5 L ABG O2 Saturation 90.5 L ABG Base Excess -11.3 FiO2 40% Sodium Potassium Chloride Carbon Dioxide Anion Gap BUN Creatinine Est GFR ( Amer) Est GFR (Non-Af Amer) Glucose Lactic Acid Calcium Phosphorus Magnesium Total Bilirubin AST ALT Alkaline Phosphatase Ammonia Total Protein Albumin Triglycerides Cholesterol LDL Cholesterol Direct VLDL Cholesterol HDL Cholesterol Amylase Lipase TSH Free T4 Urine Color Urine Appearance Urine pH Ur Specific [place] Urine Protein Urine Glucose (UA) Urine Ketones Urine Blood Urine Nitrite Ur Leukocyte Esterase Urine WBC (Auto) Urine RBC (Auto) 08/17/17 08/17/17 08/17/17 18:16 18:16 18:16 Creatine Kinase < 20 L Troponin I < 0.012 NT-Pro-B Natriuret Pep 4080 H 08/18/17 08/18/17 08/18/17 00:16 00:16 06:24 Creatine Kinase 37 45 Troponin I 0.013 NT-Pro-B Natriuret Pep 08/18/17 06:24 Creatine Kinase Troponin I 0.024 NT-Pro-B Natriuret Pep Impressions: Chest X-Ray 08/18/17 13:49 IMPRESSION: Satisfactory position of endotracheal tube. No pneumothorax. Assessment & Plan - Diagnosis (1) Thrombocytopenia Is this a current diagnosis for this admission?: Yes Plan: Labs- All tests 24 hr 08/17/17 08/18/17 08/19/17 13:50 06:24 04:08 Plt Count 67 L 36 L 12 L* D (2) Leucopenia Is this a current diagnosis for this admission?: Yes Plan: Labs- All tests 24 hr 08/17/17 08/18/17 08/19/17 13:50 06:24 04:08 WBC 0.5 L* 0.6 L* 2.4 L D Seg Neuts % (Manual) 70 Band Neutrophils % 17 H (3) Septic shock Is this a current diagnosis for this admission?: Yes Plan: Labs- All tests 24 hr 08/19/17 00:00 ABG pH 7.33 L ABG pCO2 27.5 L ABG pO2 97.2 ABG O2 Saturation 97.1 FiO2 40% - Time Total Critical Time (Minutes): 75
--- NOTE | 2017-08-19 18:32 | Death Summary ---
Summary Date : 08/19/17 Time of :: 16:28 Autopsy: No Resuscitation Status: Comfort Measures Only - Final Diagnosis (1) Septic shock Is this a current diagnosis for this admission?: Yes (2) Sepsis Is this a current diagnosis for this admission?: Yes (3) Metabolic acidosis Is this a current diagnosis for this admission?: Yes (4) Small cell lung cancer Is this a current diagnosis for this admission?: Yes (5) Chemotherapy-induced neutropenia Is this a current diagnosis for this admission?: Yes (6) Hypotension Is this a current diagnosis for this admission?: Yes (7) Ischemic necrosis of small bowel Is this a current diagnosis for this admission?: Yes (8) Thrombocytopenia Is this a current diagnosis for this admission?: Yes Hospital Course:: Patient 72-year-old female, she was recently diagnosed with small cell lung cancer on active chemotherapy and radiation therapy. She has brain metastases, she presented to the emergency room for evaluation of altered mental status and low blood pressure. In the emergency room she was found to have absolute neutropenia with severe lactic acidosis and hypotension. She denies any fever or chills are present patient was consistent with septic shock. She was treated with IV norepinephrine and vasopressin with broad-spectrum antibiotic, she was transferred to intensive care unit and ultimately she was intubated. The liver enzymes were severely elevated a CAT scan of the abdomen and pelvis with contrast was done it showed ischemic necrosis of the small bowel with free air and air in the bowel wall. Patient prognosis was very poor after all these findings and discussion with family patient was made comfort care. She was weaned off the respirator and she soon after that.
[2017-08-21 16:15] LABS: PATH REVIEW PATHOLOGIST REVIEWED
--- NOTE | 2017-08-21 16:20 | PDOC PROGRESS REPORT ---
Subjective Progress Note for:: 08/19/17 Subjective:: intubated and sedated Reason For Visit: SEPSIS,ABSOLUTE NEUTROPENIA,METASTATIC SMALL CELL Physical Exam Vital Signs: Temp Pulse Resp BP Pulse Ox 98.1 F 68 24 H 118/80 96 08/19/17 16:00 08/19/17 16:00 08/19/17 16:00 08/19/17 16:00 08/19/17 16:00 Intake & Output 08/18/17 08/19/17 08/20/17 06:59 06:59 06:59 Intake Total 1205 5407 Output Total 1650 1135 265 Balance -445 4272 -265 Weight 50.6 kg 54.5 kg General appearance: PRESENT: no acute distress, disheveled, thin. ABSENT: cooperative Head exam: PRESENT: atraumatic, normocephalic Eye exam: PRESENT: conjunctiva pale. ABSENT: EOMI, nystagmus, periorbital swelling, scleral icterus Mouth exam: PRESENT: dry mucosa, neck supple, tongue midline, other - ET tube in place Neck exam: ABSENT: carotid bruit, JVD, lymphadenopathy, thyromegaly, tracheal deviation, tracheostomy Respiratory exam: PRESENT: decreased breath sounds, prolonged expiratory phas, rales, rhonchi, symmetrical, unlabored, wheezes. ABSENT: retraction, stridor, tachypnea Cardiovascular exam: PRESENT: RRR, +S1, +S2, tachycardia Pulses: PRESENT: normal radial pulses GI/Abdominal exam: PRESENT: firm Extremities exam: ABSENT: clubbing, full ROM, joint swelling, pedal edema Musculoskeletal exam: ABSENT: ambulatory, deformity, dislocation, full ROM Neurological exam: ABSENT: awake, oriented to person Skin exam: PRESENT: dry, pallor Results Laboratory Results: 08/19/17 04:08 08/19/17 04:08 08/18/17 08/18/17 08/18/17 16:30 18:12 20:28 WBC RBC Hgb Hct MCV MCH MCHC RDW Plt Count Seg Neutrophils % Lymphocytes % Monocytes % Eosinophils % Basophils % Absolute Neutrophils Absolute Lymphocytes Absolute Monocytes Absolute Eosinophils Absolute Basophils Carbonic Acid 0.84 L HCO3/H2CO3 Ratio 16:1 ABG pH 7.31 L ABG pCO2 27.9 L ABG pO2 141.4 H ABG HCO3 13.8 L ABG O2 Saturation 98.6 H ABG Base Excess -10.9 FiO2 40% Sodium Potassium Chloride Carbon Dioxide Anion Gap BUN Creatinine Est GFR ( Amer) Est GFR (Non-Af Amer) Glucose Lactic Acid 4.2 H 4.7 H Calcium Phosphorus Magnesium Total Bilirubin AST ALT Alkaline Phosphatase Total Protein Albumin Blood Type 08/19/17 08/19/17 08/19/17 00:00 00:12 04:08 WBC 2.4 L D RBC 3.57 L Hgb 11.8 L Hct 35.0 L MCV 98 H MCH 32.9 MCHC 33.6 RDW 13.9 Plt Count 12 L* D Seg Neutrophils % Not Reportable Lymphocytes % Not Reportable Monocytes % Not Reportable Eosinophils % Not Reportable Basophils % Not Reportable Absolute Neutrophils Not Reportable Absolute Lymphocytes Not Reportable Absolute Monocytes Not Reportable Absolute Eosinophils Not Reportable Absolute Basophils Not Reportable Carbonic Acid 0.83 L HCO3/H2CO3 Ratio 17:1 ABG pH 7.33 L ABG pCO2 27.5 L ABG pO2 97.2 ABG HCO3 14.2 L ABG O2 Saturation 97.1 ABG Base Excess -10.2 FiO2 40% Sodium 132.0 L Potassium 4.7 Chloride 102 Carbon Dioxide 18 L Anion Gap 12 BUN 34 H Creatinine 0.97 Est GFR ( Amer) > 60 Est GFR (Non-Af Amer) 57 L Glucose 134 H Lactic Acid Calcium 7.9 L Phosphorus 5.3 H Magnesium 1.8 Total Bilirubin 6.8 H AST 52741 H ALT 12232 H Alkaline Phosphatase 152 H Total Protein 4.6 L Albumin 2.3 L Blood Type 08/19/17 08/19/17 04:08 14:00 WBC RBC Hgb Hct MCV MCH MCHC RDW Plt Count Seg Neutrophils % Lymphocytes % Monocytes % Eosinophils % Basophils % Absolute Neutrophils Absolute Lymphocytes Absolute Monocytes Absolute Eosinophils Absolute Basophils Carbonic Acid HCO3/H2CO3 Ratio ABG pH ABG pCO2 ABG pO2 ABG HCO3 ABG O2 Saturation ABG Base Excess FiO2 Sodium 128.8 L Potassium 5.1 H Chloride 103 Carbon Dioxide 15 L Anion Gap 11 BUN 36 H Creatinine 1.15 Est GFR ( Amer) 56 L Est GFR (Non-Af Amer) 47 L Glucose 80 Lactic Acid Calcium 7.9 L Phosphorus Magnesium 1.9 Total Bilirubin 8.4 H AST 64733 H ALT 22359 H Alkaline Phosphatase 173 H Total Protein 4.0 L Albumin 1.9 L Blood Type A POSITIVE 04/12/18 04/12/18 04/12/18 18:16 18:16 18:16 Creatine Kinase < 20 L Troponin I < 0.012 NT-Pro-B Natriuret Pep 4080 H 08/18/17 08/18/17 08/18/17 00:16 00:16 06:24 Creatine Kinase 37 45 Troponin I 0.013 NT-Pro-B Natriuret Pep 08/18/17 08/19/17 06:24 04:08 Creatine Kinase Troponin I 0.024 NT-Pro-B Natriuret Pep 60623 H Impressions: Abdomen Ultrasound 08/19/17 00:00 IMPRESSION: Markedly limited examination with a small amount of fluid noted in the right upper and left upper quadrant. Chest X-Ray 08/19/17 06:00 IMPRESSION: No significant change. Abdomen/Pelvis CT 08/19/17 12:23 IMPRESSION: Bowel ischemia and necrosis with the air in the bowel wall extending as air into the portal venous system and superior mesenteric vein. Generalized ascites. Small bilateral pleural effusions Assessment & Plan - Diagnosis (1) Thrombocytopenia Is this a current diagnosis for this admission?: Yes Plan: Labs- All tests 24 hr 08/17/17 08/18/17 08/19/17 13:50 06:24 04:08 Plt Count 67 L 36 L 12 L* D (2) Leucopenia Is this a current diagnosis for this admission?: Yes Plan: Labs- All tests 24 hr 08/17/17 08/18/17 08/19/17 13:50 06:24 04:08 WBC 0.5 L* 0.6 L* 2.4 L D Seg Neuts % (Manual) 70 Band Neutrophils % 17 H (3) Septic shock Is this a current diagnosis for this admission?: Yes Plan: Labs- All tests 24 hr 08/19/17 00:00 ABG pH 7.33 L ABG pCO2 27.5 L ABG pO2 97.2 ABG O2 Saturation 97.1 FiO2 40% - Plan Summary Plan Summary: highly abnormal abd CT scan see report based on this evidence patient's family request comfort care;I concur
== END 2017-08-19 16:20 | disposition expired | DRG 871 ==
LOC: ER 13:32 → EH 15:11 → 3S 16:42 → ICU 21:53
PROVIDERS: ADMIT Internal Medicine; ATTEND Internal Medicine
PROC: 0BH17EZ Insertion of Endotracheal Airway into Trachea, Via Natural or Artificial Opening (ICD-10-PCS; principal; 2017-08-18)
PROC: 5A1945Z Respiratory Ventilation, 24-96 Consecutive Hours (ICD-10-PCS; 2017-08-18)
DX: A41.9 Sepsis, unspecified organism (principal); R65.21 Severe sepsis with septic shock; E87.2 Acidosis; C34.90 Malignant neoplasm of unspecified part of unspecified bronchus or lung; K55.8 Other vascular disorders of intestine; C79.31 Secondary malignant neoplasm of brain; R18.8 Other ascites; D70.2 Other drug-induced agranulocytosis; D69.6 Thrombocytopenia, unspecified; I48.0 Paroxysmal atrial fibrillation; T45.1X5A Adverse effect of antineoplastic and immunosuppressive drugs, initial encounter; I10 Essential (primary) hypertension; K21.9 Gastro-esophageal reflux disease without esophagitis; J44.9 Chronic obstructive pulmonary disease, unspecified; F41.8 Other specified anxiety disorders; Z87.891 Personal history of nicotine dependence; Z79.899 Other long term (current) drug therapy
CPT/HCPCS: 31500; 36415; 71045; 74176; 76700; 80048; 80053; 80061; 80076; 80307; 81001; 82140; 82150; 82533; 82550; 82803; 82962; 83036; 83605; 83690; 83735; 83880; 84100; 84439; 84443; 84484; 85025; 85610; 85730; 86900; 86901; 87040; 87070; 87086; 87205; 93005; 93010; 94002; 94003; 96361; 96365; 96368; 99291; J0282; J0330; J1170; J1265; J1442; J1956; J2704; J3370; J3490; J7030; J7040; J7060; S0164